=== PATIENT | male | born 1970 | race Two or more races ===

== ENCOUNTER 2016-12-22 10:45 | Inpatient (IN) | payer OTHER ==
[2016-12-22 11:35] VITALS: BMI 21.9
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
[2016-12-22] MEDS ORDERED: chlordiazePOXIDE HCL 25 MG CAPSULE PO PRN (14:18)
[2016-12-22] MEDS ORDERED: MAG HYDROX/AL HYDROX/SIMETH 30 ML UNIT-DOSE CUP PO PRN (14:18)
[2016-12-22] MEDS ORDERED: hydrOXYzine PAMOATE 25 MG CAPSULE (FP) PO PRN (14:18)
[2016-12-22] MEDS ORDERED: ACETAMINOPHEN 325 MG TABLET (FP) PO PRN (14:18)
[2016-12-22] MEDS ORDERED: NICOTINE POLACRILEX 4 MG GUM BUC PRN (14:18)
[2016-12-22] MEDS ORDERED: guaiFENesin/D-METHORPHAN HB 10 ML UNIT-DOSE CUPS PO PRN (14:18)
[2016-12-22] MEDS ORDERED: P-EPHED 60MG/TRIPROLIDI 2.5MG TABLET PO PRN (14:18)
[2016-12-22] MEDS ORDERED: IBUPROFEN 400 MG TABLET (FP) PO PRN (14:18)
[2016-12-22] MEDS ORDERED: MENTHOL/PHENOL 1 EACH UD MM PRN (14:18)
[2016-12-22] MEDS ORDERED: MAGNESIUM CITRATE 300 ML BOTTLE PO PRN (14:18)
[2016-12-22] MEDS ORDERED: LOPERAMIDE HCL 2 MG CAPSULE PO PRN (14:18)
[2016-12-22] MEDS ORDERED: MAGNESIUM HYDROX 2400MG/30ML ORAL SUSPENSION 30 ML CUP PO PRN (14:18)
[2016-12-22] MEDS ORDERED: METHADONE HCL 10 MG TABLET (FOR DETOX USE ONLY) PO ONE ×2 (14:24→23:00)
[2016-12-22] MEDS: CYPROHEPTADINE HCL 4 MG TABLET PO SCH (17:08)
[2016-12-22] MEDS: chlordiazePOXIDE HCL 25 MG CAPSULE PO SCH ×2 (17:08→22:23)
[2016-12-22] MEDS: diphenhydrAMINE HCL 50 MG CAPSULE PO PRN (22:23)
[2016-12-22] MEDS: THIAMINE HCL 100 MG TABLET (FP) PO SCH (22:23)
[2016-12-22] MEDS: SULFAMETHOXAZOLE/TRIMETHOPRIM 800MG/160MG D.S. TABLET PO SCH (22:23)
[2016-12-22] MEDS: BACITRACIN 0.9 GM PACKET TP SCH (22:23)
[2016-12-22 23:19] LABS: URINE APPEARANCE CLEAR; URINE BILIRUBIN NEGATIVE (NEGATIVE); URINE BLOOD NEGATIVE (NEGATIVE); URINE COLOR YELLOW; URINE GLUCOSE (UA) NEGATIVE (NEGATIVE); URINE KETONE NEGATIVE (NEGATIVE); URINE LEUK ESTERASE NEGATIVE (NEGATIVE); URINE NITRITE NEGATIVE (NEGATIVE); URINE PROTEIN NEGATIVE (NEGATIVE); URINE UROBILINOGEN NEGATIVE E.U./dl (0.2-1.0)
[2016-12-23] MEDS: chlordiazePOXIDE HCL 25 MG CAPSULE PO SCH ×4 (05:22→22:18)
[2016-12-23] MEDS ORDERED: ALBUTEROL SO4 6.7 GM HFA INHALER IH PRN (08:51)
[2016-12-23] MEDS ORDERED: METHADONE HCL 10 MG TABLET (FOR DETOX USE ONLY) PO SCH (10:00)
[2016-12-23 10:04] LABS: MCHC 32.7 g/dl (32.0-35.9); MEAN CELL VOLUME 82.5 fl (80-96); MEAN PLT VOLUME 8.8 fl (7.5-11.1); PLATELET COUNT 231 K/MM3 (134-434); RDW 14.9 % (11.9-15.9); WHITE BLOOD COUNT 5.6 K/mm3 (4.0-10.0)
[2016-12-23 10:17] LABS: ANION GAP 9 (8-16); BILIRUBIN,TOTAL 0.5 mg/dL (0.2-1.0); CALCIUM 9.1 mg/dL (8.5-10.1); CO2 25 mmol/L (21-32); CREATININE 0.9 mg/dL (0.7-1.3); GLUCOSE,RANDOM 112 mg/dL (74-106); SGOT/AST 23 U/L (15-37); SGPT/ALT 27 U/L (12-78); TOT PROT 7.4 g/dl (6.4-8.2)
[2016-12-23 10:18] LABS: ALK PHOS 113 U/L (45-117)
[2016-12-23] MEDS: BACITRACIN 0.9 GM PACKET TP SCH ×2 (10:26→22:18)
[2016-12-23] MEDS: SULFAMETHOXAZOLE/TRIMETHOPRIM 800MG/160MG D.S. TABLET PO SCH ×2 (10:26→22:18)
[2016-12-23] MEDS: EMTRICITAB/RILPIVIRINE/TENOFOV 1 EACH TABLET PO SCH (10:26)
[2016-12-23] MEDS: PRENATAL VITAMINS W/ FOLIC ACID TABLET (FP) PO SCH (10:27)
[2016-12-23] MEDS: NICOTINE 21 MG/24 HOURS TOPICAL PATCH TD SCH (10:27)
[2016-12-23] MEDS: ENALAPRIL MALEATE 10 MG TABLET (FP) PO SCH (10:28)
[2016-12-23] MEDS: CYPROHEPTADINE HCL 4 MG TABLET PO SCH ×2 (10:53→17:18)
--- NOTE | 2016-12-23 11:06 | PN ---
[facility] CIWA - CIWA Score Nausea/Vomitin-No Nausea/No Vomiting Muscle Tremors: 4-Moderate,w/Arms Extend Anxiety: 4-Mod. Anxious/Guarded Agitation: 4-Moderately Restless Paroxysmal Sweats: 1-Minimal Palms Moist Orientation: 0-Oriented Tacttile Disturbances: 3-Moderate Itch/Numb/Burn Auditory Disturbances: 0-None Visual Disturbances: 0-None Headache: 0-None Present CIWA-Ar Total Score: 16 S COWS - Scale Resting Pulse: 0= [place] 80 or Below Sweatin= Chills/Flushing Restless Observation: 3= Extraneous Movement Pupil Size: 0= Normal to Room Light Bone or Joint Aches: 4=Acute Joint/Muscle Pain Runny Nose/ Eye Tearin= Nasal Congestion GI Upset > 30mins: 1= Stomach Cramp Tremor Observation of Outstretched Hands: 1= Tremor [place], Not Seen Yawning Observation: 1= 1-2x During Session Anxiety or Irritability: 2=Irritable/Anxious Goose Flesh Skin: 0=Smooth Skin COWS Score: 14 [facility] Progress Note (SOAP) Subjective: ANXIETY,SWEATS,IRRITABILITY,INTERMITTENT SLEEP. Objective: 12/23/16 11:05 Vital Signs Temperature 97.7 F 12/23/16 10:22 Pulse Rate 77 12/23/16 10:22 Respiratory Rate 18 12/23/16 10:22 Blood Pressure 111/73 12/23/16 10:22 O2 Sat by Pulse Oximetry (%) Laboratory Last Values WBC 5.6 K/mm3 (4.0-10.0) 12/23/16 06:00 RBC 4.30 M/mm3 (4.00-5.60) 12/23/16 06:00 Hgb 11.6 GM/dL (11.7-16.9) L 12/23/16 06:00 Hct 35.4 % (35.4-49) 12/23/16 06:00 MCV 82.5 fl (80-96) 12/23/16 06:00 MCHC 32.7 g/dl (32.0-35.9) 12/23/16 06:00 RDW 14.9 % (11.9-15.9) 12/23/16 06:00 Plt Count 231 K/MM3 (134-434) D 12/23/16 06:00 MPV 8.8 fl (7.5-11.1) 12/23/16 06:00 Sodium 140 mmol/L (136-145) 12/23/16 06:00 Potassium 4.2 mmol/L (3.5-5.1) 12/23/16 06:00 Chloride 106 mmol/L (98-107) 12/23/16 06:00 Carbon Dioxide 25 mmol/L (21-32) D 12/23/16 06:00 Anion Gap 9 (8-16) 12/23/16 06:00 BUN 9 mg/dL (7-18) D 12/23/16 06:00 Creatinine 0.9 mg/dL (0.7-1.3) 12/23/16 06:00 Creat Clearance w eGFR > 60 (>60) 12/23/16 06:00 Random Glucose 112 mg/dL (74-106) H D 12/23/16 06:00 Calcium 9.1 mg/dL (8.5-10.1) 12/23/16 06:00 Total Bilirubin 0.5 mg/dL (0.2-1.0) D 12/23/16 06:00 AST 23 U/L (15-37) D 12/23/16 06:00 ALT 27 U/L (12-78) 12/23/16 06:00 Alkaline Phosphatase 113 U/L (45-117) 12/23/16 06:00 Total Protein 7.4 g/dl (6.4-8.2) 12/23/16 06:00 Albumin 4.0 g/dl (3.4-5.0) 12/23/16 06:00 Urine Color Yellow 12/22/16 21:51 Urine Appearance Clear 12/22/16 21:51 Urine pH 5.0 (5.0-8.0) 12/22/16 21:51 Urine Protein Negative (NEGATIVE) 12/22/16 21:51 Urine Glucose (UA) Negative (NEGATIVE) 12/22/16 21:51 Urine Ketones Negative (NEGATIVE) 12/22/16 21:51 Urine Blood Negative (NEGATIVE) 12/22/16 21:51 Urine Nitrite Negative (NEGATIVE) 12/22/16 21:51 Urine Bilirubin Negative (NEGATIVE) 12/22/16 21:51 Urine Urobilinogen Negative E.U./dl (0.2-1.0) 12/22/16 21:51 Ur Leukocyte Esterase Negative (NEGATIVE) 12/22/16 21:51 Assessment: 12/23/16 11:06 WITHDRAWAL SX Plan: CONTINUE DETOX
[2016-12-23] MEDS: THIAMINE HCL 100 MG TABLET (FP) PO SCH (22:18)
[2016-12-24] MEDS: chlordiazePOXIDE HCL 25 MG CAPSULE PO SCH ×2 (05:47→10:58)
[2016-12-24] MEDS: EMTRICITAB/RILPIVIRINE/TENOFOV 1 EACH TABLET PO SCH (07:25)
[2016-12-24] MEDS: CYPROHEPTADINE HCL 4 MG TABLET PO SCH ×2 (07:25→17:20)
[2016-12-24] MEDS: BACITRACIN 0.9 GM PACKET TP SCH ×2 (10:19→22:10)
[2016-12-24] MEDS: SULFAMETHOXAZOLE/TRIMETHOPRIM 800MG/160MG D.S. TABLET PO SCH ×2 (10:19→22:10)
[2016-12-24] MEDS: ENALAPRIL MALEATE 10 MG TABLET (FP) PO SCH (10:19)
[2016-12-24] MEDS: METHADONE HCL 5 MG TABLET (FOR DETOX USE ONLY) PO SCH (10:19)
[2016-12-24] MEDS: NICOTINE 21 MG/24 HOURS TOPICAL PATCH TD SCH (10:20)
[2016-12-24] MEDS: PRENATAL VITAMINS W/ FOLIC ACID TABLET (FP) PO SCH (10:20)
[2016-12-24] MEDS ORDERED: COLLOIDAL OATMEAL 1 BAR EACH TP PRN (13:34)
--- NOTE | 2016-12-24 13:37 | PN ---
[facility] CIWA - CIWA Score Nausea/Vomitin-No Nausea/No Vomiting Muscle Tremors: 4-Moderate,w/Arms Extend Anxiety: 3 Agitation: 2 Paroxysmal Sweats: 3 Orientation: 0-Oriented Tacttile Disturbances: 3-Moderate Itch/Numb/Burn Auditory Disturbances: 2-Mild Harshness/Frighten Visual Disturbances: 0-None Headache: 0-None Present CIWA-Ar Total Score: 17 S COWS - Scale Resting Pulse: 1= [place] 81-100 Sweatin= Chills/Flushing Restless Observation: 1= Difficult to Sit Still Pupil Size: 0= Normal to Room Light Bone or Joint Aches: 2= Severe Diffuse Aches Runny Nose/ Eye Tearin= Nasal Congestion GI Upset > 30mins: 1= Stomach Cramp Tremor Observation of Outstretched Hands: 2= Slight Tremor Visible Yawning Observation: 1= 1-2x During Session Anxiety or Irritability: 2=Irritable/Anxious Goose Flesh Skin: 3=Piloerection COWS Score: 15 [facility] Progress Note (SOAP) Subjective: Interrupted Sleep, Tremors, Body Aches, Sweating. Objective: PT. A & O X 3, OBSERVED AMBULATING ON UNIT. NO ACUTE DISTRESS. 12/24/16 13:35 Vital Signs Temperature 98.4 F 12/24/16 09:50 Pulse Rate 82 12/24/16 09:50 Respiratory Rate 20 12/24/16 09:50 Blood Pressure 119/80 12/24/16 09:50 O2 Sat by Pulse Oximetry (%) Laboratory Tests 12/22/16 12/23/16 12/23/16 21:51 06:00 06:00 WBC 5.6 RBC 4.30 Hgb 11.6 L Hct 35.4 MCV 82.5 MCHC 32.7 RDW 14.9 Plt Count 231 D MPV 8.8 Sodium 140 Potassium 4.2 Chloride 106 Carbon Dioxide 25 D Anion Gap 9 BUN 9 D Creatinine 0.9 Creat Clearance w eGFR > 60 Random Glucose 112 H D Calcium 9.1 Total Bilirubin 0.5 D AST 23 D ALT 27 Alkaline Phosphatase 113 Total Protein 7.4 Albumin 4.0 Urine Color Yellow Urine Appearance Clear Urine pH 5.0 Ur Specific [place] 1.025 Urine Protein Negative Urine Glucose (UA) Negative Urine Ketones Negative Urine Blood Negative Urine Nitrite Negative Urine Bilirubin Negative Urine Urobilinogen Negative Ur Leukocyte Esterase Negative RPR Titer 12/23/16 06:00 WBC RBC Hgb Hct MCV MCHC RDW Plt Count MPV Sodium Potassium Chloride Carbon Dioxide Anion Gap BUN Creatinine Creat Clearance w eGFR Random Glucose Calcium Total Bilirubin AST ALT Alkaline Phosphatase Total Protein Albumin Urine Color Urine Appearance Urine pH Ur Specific [place] Urine Protein Urine Glucose (UA) Urine Ketones Urine Blood Urine Nitrite Urine Bilirubin Urine Urobilinogen Ur Leukocyte Esterase RPR Titer Nonreactive LABS NOTED. Assessment: 12/24/16 13:36 WITHDRAWAL SYMPTOMS. Plan: CONTINUE DETOX.
[2016-12-24] MEDS: chlordiazePOXIDE 5 MG CAPSULE PO SCH ×2 (17:22→22:10)
[2016-12-24] MEDS: THIAMINE HCL 100 MG TABLET (FP) PO SCH (22:10)
[2016-12-24] MEDS: diphenhydrAMINE HCL 50 MG CAPSULE PO PRN (22:10)
[2016-12-25] MEDS: chlordiazePOXIDE 5 MG CAPSULE PO SCH ×2 (05:29→10:32)
[2016-12-25] MEDS: CYPROHEPTADINE HCL 4 MG TABLET PO SCH ×2 (07:07→17:03)
[2016-12-25] MEDS: EMTRICITAB/RILPIVIRINE/TENOFOV 1 EACH TABLET PO SCH (07:47)
[2016-12-25] MEDS: PRENATAL VITAMINS W/ FOLIC ACID TABLET (FP) PO SCH (10:08)
[2016-12-25] MEDS: METHADONE HCL 5 MG TABLET (FOR DETOX USE ONLY) PO SCH (10:08)
[2016-12-25] MEDS: ENALAPRIL MALEATE 10 MG TABLET (FP) PO SCH (10:08)
[2016-12-25] MEDS: SULFAMETHOXAZOLE/TRIMETHOPRIM 800MG/160MG D.S. TABLET PO SCH ×2 (10:08→22:04)
[2016-12-25] MEDS: NICOTINE 21 MG/24 HOURS TOPICAL PATCH TD SCH (10:09)
[2016-12-25] MEDS: BACITRACIN 0.9 GM PACKET TP SCH ×2 (10:09→22:04)
--- NOTE | 2016-12-25 12:58 | PN ---
[facility] Progress Note (SOAP) Subjective: Sweating, anxious, restless, nausea Objective: 12/25/16 12:56 Last Vital Signs Temp Pulse Resp BP Pulse Ox 96.6 F L 90 18 122/75 12/25/16 11:10 12/25/16 11:10 12/25/16 11:10 12/25/16 11:10 Laboratory Tests 12/22/16 12/23/16 12/23/16 21:51 06:00 06:00 WBC 5.6 RBC 4.30 Hgb 11.6 L Hct 35.4 MCV 82.5 MCHC 32.7 RDW 14.9 Plt Count 231 D MPV 8.8 Sodium 140 Potassium 4.2 Chloride 106 Carbon Dioxide 25 D Anion Gap 9 BUN 9 D Creatinine 0.9 Creat Clearance w eGFR > 60 Random Glucose 112 H D Calcium 9.1 Total Bilirubin 0.5 D AST 23 D ALT 27 Alkaline Phosphatase 113 Total Protein 7.4 Albumin 4.0 Urine Color Yellow Urine Appearance Clear Urine pH 5.0 Ur Specific [place] 1.025 Urine Protein Negative Urine Glucose (UA) Negative Urine Ketones Negative Urine Blood Negative Urine Nitrite Negative Urine Bilirubin Negative Urine Urobilinogen Negative Ur Leukocyte Esterase Negative RPR Titer 12/23/16 06:00 WBC RBC Hgb Hct MCV MCHC RDW Plt Count MPV Sodium Potassium Chloride Carbon Dioxide Anion Gap BUN Creatinine Creat Clearance w eGFR Random Glucose Calcium Total Bilirubin AST ALT Alkaline Phosphatase Total Protein Albumin Urine Color Urine Appearance Urine pH Ur Specific [place] Urine Protein Urine Glucose (UA) Urine Ketones Urine Blood Urine Nitrite Urine Bilirubin Urine Urobilinogen Ur Leukocyte Esterase RPR Titer Nonreactive Labs noted Assessment: 12/25/16 12:57 Withdrawal symptoms Plan: Continue detox
[2016-12-25] MEDS: chlordiazePOXIDE HCL 10 MG CAPSULE PO SCH ×2 (17:03→22:04)
--- NOTE | 2016-12-25 17:50 | PN ---
[facility] Progress Note Note: Vital Signs Temperature 97.4 F L 12/25/16 16:47 Pulse Rate 82 12/25/16 16:47 Respiratory Rate 19 12/25/16 16:47 Blood Pressure 114/70 12/25/16 16:47 O2 Sat by Pulse Oximetry (%) CALLED BY NURSE TO EVALUATED PATIENT WITH ABSCESS OF RIGHT LEG RIGHT LEG SWELLING WITH ERYTHEMA SIZE 2X2 CMS NO FLUCTUATION AMBULATION NO PROBLEM Laboratory Last Values WBC 5.6 K/mm3 (4.0-10.0) 12/23/16 06:00 RBC 4.30 M/mm3 (4.00-5.60) 12/23/16 06:00 Hgb 11.6 GM/dL (11.7-16.9) L 12/23/16 06:00 Hct 35.4 % (35.4-49) 12/23/16 06:00 MCV 82.5 fl (80-96) 12/23/16 06:00 MCHC 32.7 g/dl (32.0-35.9) 12/23/16 06:00 RDW 14.9 % (11.9-15.9) 12/23/16 06:00 Plt Count 231 K/MM3 (134-434) D 12/23/16 06:00 MPV 8.8 fl (7.5-11.1) 12/23/16 06:00 Sodium 140 mmol/L (136-145) 12/23/16 06:00 Potassium 4.2 mmol/L (3.5-5.1) 12/23/16 06:00 Chloride 106 mmol/L (98-107) 12/23/16 06:00 Carbon Dioxide 25 mmol/L (21-32) D 12/23/16 06:00 Anion Gap 9 (8-16) 12/23/16 06:00 BUN 9 mg/dL (7-18) D 12/23/16 06:00 Creatinine 0.9 mg/dL (0.7-1.3) 12/23/16 06:00 Creat Clearance w eGFR > 60 (>60) 12/23/16 06:00 Random Glucose 112 mg/dL (74-106) H D 12/23/16 06:00 Calcium 9.1 mg/dL (8.5-10.1) 12/23/16 06:00 Total Bilirubin 0.5 mg/dL (0.2-1.0) D 12/23/16 06:00 AST 23 U/L (15-37) D 12/23/16 06:00 ALT 27 U/L (12-78) 12/23/16 06:00 Alkaline Phosphatase 113 U/L (45-117) 12/23/16 06:00 Total Protein 7.4 g/dl (6.4-8.2) 12/23/16 06:00 Albumin 4.0 g/dl (3.4-5.0) 12/23/16 06:00 Urine Color Yellow 12/22/16 21:51 Urine Appearance Clear 12/22/16 21:51 Urine pH 5.0 (5.0-8.0) 12/22/16 21:51 Ur Specific [place] 1.025 (1.005-1.025) 12/22/16 21:51 Urine Protein Negative (NEGATIVE) 12/22/16 21:51 Urine Glucose (UA) Negative (NEGATIVE) 12/22/16 21:51 Urine Ketones Negative (NEGATIVE) 12/22/16 21:51 Urine Blood Negative (NEGATIVE) 12/22/16 21:51 Urine Nitrite Negative (NEGATIVE) 12/22/16 21:51 Urine Bilirubin Negative (NEGATIVE) 12/22/16 21:51 Urine Urobilinogen Negative E.U./dl (0.2-1.0) 12/22/16 21:51 Ur Leukocyte Esterase Negative (NEGATIVE) 12/22/16 21:51 RPR Titer Nonreactive (NONREACTIVE) 12/23/16 06:00 PATIENT HAS BEEN ON BACTRIM DS 1 TAB PO BID SINCE ADMISSION TREATMENT CONTINUE BACTRIMDS 1 TAB PO BID HOT PACK TID EACH 15 MINS MOTRIN 600 MGS PO Q 6 HRS PRN FOR PAIN IF NO IMPROVEMENT MAY REQUIRE INCISION AND DRAINAGE
[2016-12-25] MEDS ORDERED: IBUPROFEN 600 MG TABLET (FP) PO PRN (17:53)
[2016-12-25] MEDS: THIAMINE HCL 100 MG TABLET (FP) PO SCH (22:04)
[2016-12-25] MEDS: diphenhydrAMINE HCL 50 MG CAPSULE PO PRN (22:05)
--- NOTE | 2016-12-25 22:23 | EKG ---
Test Reason : Blood Pressure : / mmHG Vent. Rate : 080 BPM Atrial Rate : 080 BPM P-R Int : 152 ms QRS Dur : 090 ms QT Int : 372 ms P-R-T Axes : 056 074 055 degrees QTc Int : 429 ms NORMAL SINUS RHYTHM NONSPECIFIC ST ABNORMALITY NO PREVIOUS ECGS AVAILABLE Confirmed by CHRISTIANO BALDERAS, PARAMJIT (2016) on 12/25/2016 10:23:17 PM Referred By: Confirmed By:PARAMJIT ALVARADO MD
[2016-12-26] MEDS: chlordiazePOXIDE HCL 10 MG CAPSULE PO SCH (06:00)
[2016-12-26] MEDS: CYPROHEPTADINE HCL 4 MG TABLET PO SCH (06:01)
[2016-12-26] MEDS: EMTRICITAB/RILPIVIRINE/TENOFOV 1 EACH TABLET PO SCH (08:01)
[2016-12-26 08:53] VITALS: BP 130/87; PULSE 92; TEMP 97.3
[2016-12-26] MEDS ORDERED: METHADONE HCL 5 MG TABLET (FOR DETOX USE ONLY) PO SCH (09:00)
[2016-12-26] MEDS: SULFAMETHOXAZOLE/TRIMETHOPRIM 800MG/160MG D.S. TABLET PO SCH (09:01)
[2016-12-26] MEDS: PRENATAL VITAMINS W/ FOLIC ACID TABLET (FP) PO SCH (09:01)
[2016-12-26] MEDS: NICOTINE 21 MG/24 HOURS TOPICAL PATCH TD SCH (09:02)
[2016-12-26] MEDS: BACITRACIN 0.9 GM PACKET TP SCH (09:02)
[2016-12-26] MEDS ORDERED: METHADONE HCL 10 MG TABLET (FOR DETOX USE ONLY) PO SCH (10:00)
--- NOTE | 2016-12-26 12:56 | DS ---
[facility] Detox Discharge Summary Admission Date: 12/22/16 Discharge Date: 12/26/16 - History Present History: Alcohol Dependence, Cannabis Dependence, Cocaine Dependence, Opioid Dependence Additional Comments: ADVISED PATIENT TO COMPLETE REMAINDER OF FULL COURSE OF ANTIBIOTIC PRESCRIBED WHILE ADMITTED FOR DETOX FOR ABSCESS OF RIGHT ARM AND RIGHT LEG. ALSO ADVISED PATIENT TO FOLLOW-UP WITH DIRECTOR OF COMMUNITY SERVICES / MEDICAL PROVIDER AT [facility] PER ARRANGEMENT. Pertinent Past History: Asthma, HTN, Hep C (Treated), HIV, Depression Abscess of Right Arm. - Physical Exam Results Vital Signs: Vital Signs Temperature 97.3 F L 12/26/16 08:52 Pulse Rate 92 H 12/26/16 08:52 Respiratory Rate 18 12/26/16 08:52 Blood Pressure 130/87 12/26/16 08:52 O2 Sat by Pulse Oximetry (%) Pertinent Admission Physical Exam Findings: WITHDRAWAL SYMPTOMS. Laboratory Tests 12/22/16 12/23/16 12/23/16 21:51 06:00 06:00 WBC 5.6 RBC 4.30 Hgb 11.6 L Hct 35.4 MCV 82.5 MCHC 32.7 RDW 14.9 Plt Count 231 D MPV 8.8 Sodium 140 Potassium 4.2 Chloride 106 Carbon Dioxide 25 D Anion Gap 9 BUN 9 D Creatinine 0.9 Creat Clearance w eGFR > 60 Random Glucose 112 H D Calcium 9.1 Total Bilirubin 0.5 D AST 23 D ALT 27 Alkaline Phosphatase 113 Total Protein 7.4 Albumin 4.0 Urine Color Yellow Urine Appearance Clear Urine pH 5.0 Ur Specific [place] 1.025 Urine Protein Negative Urine Glucose (UA) Negative Urine Ketones Negative Urine Blood Negative Urine Nitrite Negative Urine Bilirubin Negative Urine Urobilinogen Negative Ur Leukocyte Esterase Negative RPR Titer 12/23/16 06:00 WBC RBC Hgb Hct MCV MCHC RDW Plt Count MPV Sodium Potassium Chloride Carbon Dioxide Anion Gap BUN Creatinine Creat Clearance w eGFR Random Glucose Calcium Total Bilirubin AST ALT Alkaline Phosphatase Total Protein Albumin Urine Color Urine Appearance Urine pH Ur Specific [place] Urine Protein Urine Glucose (UA) Urine Ketones Urine Blood Urine Nitrite Urine Bilirubin Urine Urobilinogen Ur Leukocyte Esterase RPR Titer Nonreactive LABS NOTED. - Treatment Hospital Course: Detox Protocol Followed, Detoxed Safely, Responded well, Discharged Condition Good Patient has Accepted a Rehab Referral to: PATIENT GOING HOME. WILL RETURN TO [facility] FOR FOLLOW-UP - Medication Discharge Medications: Ambulatory Orders Emtricita/Rilpivirine/Tenof Df [Complera Tablet] 1 each PO DAILY 05/04/15 Albuterol Sulfate Inhaler - [Ventolin HFA Inhaler -] 2 inh IH Q4H PRN 04/12/16 Trazodone HCl [Desyrel -] 100 mg PO HS #30 tablet 04/26/16 Enalapril Maleate [Vasotec] 20 mg PO DAILY 12/22/16 Bacitracin - [Bacitracin Topical Ointment -] 1 applic TP BID #1 applic 12/26/16 Sulfamethoxazole/Trimethoprim [Bactrim Ds -] 1 tab PO BID #20 tablet 12/26/16 - Diagnosis (1) Abscess Status: Acute (2) Alcohol dependence with uncomplicated withdrawal Status: Acute (3) Cannabis dependence, uncomplicated Status: Acute (4) Cocaine dependence, uncomplicated Status: Acute (5) Hepatitis C Status: Chronic Qualifiers: Viral hepatitis chronicity: chronic Hepatic coma status: without hepatic coma Qualified Code(s): B18.2 - Chronic viral hepatitis C (6) Nicotine dependence Status: Chronic Qualifiers: Nicotine product type: cigarettes Substance use status: uncomplicated Qualified Code(s): F17.210 - Nicotine dependence, cigarettes, uncomplicated (7) Opioid dependence with withdrawal Status: Acute - AMA Did Patient Leave Against Medical Advice: No
[2016-12-27] MEDS ORDERED: METHADONE HCL 5 MG TABLET (FOR DETOX USE ONLY) PO SCH (06:00)
== END 2016-12-26 09:44 | disposition home or self-care (01) | DRG 773 ==
LOC: YASAS 10:45 → Y3N 12:30
PROVIDERS: ADMIT Internal Medicine; ATTEND Internal Medicine
PROC: HZ2ZZZZ Detoxification Services for Substance Abuse Treatment (ICD-10-PCS; principal; 2016-12-22)
DX: F11.23 Opioid dependence with withdrawal (principal); F10.230 Alcohol dependence with withdrawal, uncomplicated; F14.20 Cocaine dependence, uncomplicated; F12.20 Cannabis dependence, uncomplicated; F17.210 Nicotine dependence, cigarettes, uncomplicated; B18.2 Chronic viral hepatitis C; J45.909 Unspecified asthma, uncomplicated; I10 Essential (primary) hypertension; Z21 Asymptomatic human immunodeficiency virus [HIV] infection status; L02.415 Cutaneous abscess of right lower limb
CPT/HCPCS: 36415; 80053; 81003; 85027; 86593; 93005; 93010

== ENCOUNTER 2017-08-05 11:36 | Inpatient (IN) | payer OTHER ==
[2017-08-05 12:39] VITALS: BMI 23.1
--- NOTE | 2017-08-05 14:39 | HP ---
CIWA Score - CIWA Score Nausea/Vomitin Muscle Tremors: 3 Anxiety: 3 Agitation: 3 Paroxysmal Sweats: 2 Orientation: 0-Oriented Tacttile Disturbances: 2-Mild Itch/Numbness/Burn Auditory Disturbances: 2-Mild Harshness/Frighten Visual Disturbances: 2-Mild Sensitivity Headache: 2-Mild CIWA-Ar Total Score: 22 Admission ROS BHS - HPI Chief Complaint: I NEED HELP TO STOP DRINKING ALCOHOL,COCAINE,MARIJUANA,HEROIN ,ON SUXONE MIANTENENCE 8MG/2MG TID,DID NOT TAKE SUBOXONE FOR 3 DAYS, LAST DETOX [facility] 12/22/16 TO 12/26/16 WEIGHT LOSS HIV SINCE 2009 ON MED HTN HEPATITIS C TREATED NICOTINE DEPENDENCE ANXIETY,DEPRESSION,INSOMNIA LONGEST PERIOD OF SOBRIETY 4 MONTHS Allergies/Adverse Reactions: Allergies Allergy/AdvReac Type Severity Reaction Status Date / Time No Known Allergies Allergy Verified 12/22/16 11:23 History of Present Illness: THIS 47 YEARS OLD MALE WITH ALCOHOL,COCAINE,MARIJUANA,HROIN DEPENDENCE,ON SUBOXONE MENTIONED,RUN OUT OF SUBOXONE 3 DYAS AGO,HAS MEDICATION IN THE PHARMACY - Ebola screening Have you traveled outside of the country in the last 21 days: No (N) Have you had contact with anyone from an Ebola affected area: No Have you been sick,other than usual withdrawal symptoms: No Do you have a fever: No - Review of Systems Constitutional: Loss of Appetite, Malaise, Night Sweats, Changes in sleep, Weakness, Unintentional Wgt. Loss EENT: reports: Tearing, Nose Congestion Respiratory: reports: No Symptoms reported, Other (ASTHMA) Cardiac: reports: Palpitations GI: reports: Diarrhea, Nausea, Poor Fluid Intake, Vomiting : reports: No Symptoms Reported Musculoskeletal: reports: Back Pain, Muscle Pain Neuro: reports: Headache, Tremors Endocrine: reports: No Symptoms Reported Hematology: reports: No Symptoms Reported, Other (HIV) Psychiatric: reports: Anxious, Depressed (INSOMNIA) Patient History - Patient Medical History Hx Anemia: Yes (ALBUTROL INHALER) Hx Asthma: Yes Hx Chronic Obstructive Pulmonary Disease (COPD): No Hx Cancer: No Hx Cardiac Disorders: No Hx Congestive Heart Failure: No Hx Hypertension: Yes (ON MED) Hx Hypercholesterolemia: No Hx Pacemaker: No HX Cerebrovascular Accident: No Hx Seizures: No Hx Dementia: No Hx Diabetes: No Hx Gastrointestinal Disorders: No Hx Liver Disease: No Hx Genitourinary Disorders: No Hx Sexually Transmitted Disorders: No Hx Renal Disease (ESRD): No Hx Thyroid Disease: No Hx Human Immunodeficiency Virus (HIV): Yes (2012-COMPLERA, tx at [facility] SINCE 2009) Hx Hepatitis C: Yes (TX'ED) Hx Depression: Yes Hx Suicide Attempt: No Hx Bipolar Disorder: No Hx Schizophrenia: No Other Medical History: ANXIETY,INSOMNIA,NO SUICIDAL,NO HOMICIDAL - Patient Surgical History Past Surgical History: No Hx Neurologic Surgery: No Hx Cataract Extraction: No Hx Cardiac Surgery: No Hx Lung Surgery: No Hx Breast Surgery: No Hx Breast Biopsy: No Hx Abdominal Surgery: No Hx Appendectomy: No Hx Cholecystectomy: No Hx Genitourinary Surgery: No Hx Section: No Hx Orthopedic Surgery: No Anesthesia Reaction: No - PPD History Previous Implant?: Yes Documented Results: Negative w/o proof Date: 04/14/16 Results: 0 mm PPD to be Administered?: Yes - Smoking Cessation Smoking history: Current every day smoker Have you smoked in the past 12 months: Yes Aproximately how many cigarettes per day: 20 Cigars Per Day: 0 Hx Chewing Tobacco Use: No Initiated information on smoking cessation: Yes 'Breaking Loose' booklet given: 08/05/17 - Substance & Tx. History Hx Alcohol Use: Yes Hx Substance Use: Yes Substance Use Type: Alcohol, Cocaine Hx Substance Use Treatment: Yes ([facility] 12/22/16 TO 12/16/16) - Substances Abused Alcohol Route: Oral Frequency: Daily Amount used: 1PINT OF VODKA/12 OF 8 OZS OF BEER Age of first use: 18 Date of Last Use: 08/05/17 Cocaine Route: Injection Frequency: Daily Amount used: 40$ Age of first use: 23 Date of Last Use: 08/05/17 Marijuana/Hashish Route: Smoking Frequency: Daily Amount used: 10$ Age of first use: 15 Date of Last Use: 08/04/17 Heroin Route: Injection Frequency: Daily Amount used: 4 BAGS Age of first use: 27 Date of Last Use: 08/04/17 Family Disease History - Family Disease History Family Disease History: Other: Father (DEPENDENT ON ETOH AND DRUGS AND ), Mother (ALZHIEMERS) Admission Physical Exam BHS - Vital Signs Vital Signs: Vital Signs - 24 hr 08/05/17 12:33 Temperature 97.7 F Pulse Rate 86 Respiratory 18 Rate Blood Pressure 125/73 - Physical General Appearance: Yes: Moderate Distress, Tremorous, Irritable, Sweating, Anxious HEENTM: Yes: Normal ENT Inspection, OSITO, Pharynx Normal Respiratory: Yes: Lungs Clear, Normal Breath Sounds, No Respiratory Distress, Other (ASTHMA) Neck: Yes: Within Normal Limits Breast: Yes: Within Normal Limits Cardiology: Yes: Within Normal Limits, Regular Rhythm, Regular Rate, S1, S2 Abdominal: Yes: Within Normal Limits, Normal Bowel Sounds, Non Tender, Flat, Soft Genitourinary: Yes: Within Normal Limits Back: Yes: Within Normal Limits Musculoskeletal: Yes: full range of Motion, Back pain, Muscle Pain Extremities: Yes: Tremors Neurological: Yes: bank compliance officer II-XII NML intact, Fully Oriented, Alert, Motor Strength 5/5 Integumentary: Yes: Dry, Track Proctor (CELLULITIS HANDS) Lymphatic: Yes: Within Normal Limits - Diagnostic (1) HIV (human immunodeficiency virus infection) Current Visit: Yes Status: Acute (2) Alcohol dependence with uncomplicated withdrawal Current Visit: No Status: Acute (3) Cannabis dependence, uncomplicated Current Visit: No Status: Acute (4) Cocaine dependence, uncomplicated Current Visit: No Status: Acute (5) Hepatitis C Current Visit: No Status: Chronic Qualifiers: Viral hepatitis chronicity: chronic Hepatic coma status: without hepatic coma Qualified Code(s): B18.2 - Chronic viral hepatitis C (6) Anxiety and depression Current Visit: No Status: Chronic (7) Nicotine dependence Current Visit: No Status: Chronic Qualifiers: Nicotine product type: cigarettes Substance use status: uncomplicated Qualified Code(s): F17.210 - Nicotine dependence, cigarettes, uncomplicated (8) Weight loss Current Visit: Yes Status: Acute (9) Asthma Current Visit: Yes Status: Acute (10) Cellulitis and abscess of hand Current Visit: Yes Status: Acute Cleared for Admission S - Detox or Rehab [facility] Level of Care: Medically Managed Detox Regimen/Protocol: Librium [facility] Breath Alcohol Content Breath Alcohol Content: 0.024 Urine Drug Screen - Results Drug Screen Negative: No Urine Drug Screen Results: THC-Marijuana, ARNAUD-Cocaine, OPI-Opiates, OXY- Oxycodone
[2017-08-05] MEDS ORDERED: chlordiazePOXIDE HCL 25 MG CAPSULE PO ONE (15:01)
[2017-08-05] MEDS ORDERED: MENTHOL/PHENOL 1 EACH UD MM PRN (15:01)
[2017-08-05] MEDS ORDERED: hydrOXYzine PAMOATE 50 MG CAPSULE (FP) PO PRN (15:01)
[2017-08-05] MEDS ORDERED: IBUPROFEN 400 MG TABLET (FP) PO PRN (15:01)
[2017-08-05] MEDS ORDERED: NICOTINE POLACRILEX 2 MG GUM BC PRN (15:01)
[2017-08-05] MEDS ORDERED: guaiFENesin/D-METHORPHAN HB 10 ML UNIT-DOSE CUPS PO PRN (15:01)
[2017-08-05] MEDS ORDERED: ACETAMINOPHEN 325 MG TABLET (FP) PO PRN (15:01)
[2017-08-05] MEDS ORDERED: MAGNESIUM CITRATE 300 ML BOTTLE PO PRN (15:01)
[2017-08-05] MEDS ORDERED: P-EPHED 60MG/TRIPROLIDI 2.5MG TABLET PO PRN (15:01)
[2017-08-05] MEDS ORDERED: MAGNESIUM HYDROX 2400MG/30ML ORAL SUSPENSION 30 ML CUP PO PRN (15:01)
[2017-08-05] MEDS ORDERED: MAG HYDROX/AL HYDROX/SIMETH 30 ML UNIT-DOSE CUP PO PRN (15:01)
[2017-08-05] MEDS ORDERED: LOPERAMIDE HCL 2 MG CAPSULE PO PRN (15:01)
[2017-08-05] MEDS ORDERED: chlordiazePOXIDE HCL 25 MG CAPSULE PO PRN (15:01)
[2017-08-05] MEDS ORDERED: ALBUTEROL SO4 18 GM HFA INHALER IH PRN (15:11)
[2017-08-05] MEDS: NICOTINE 21 MG/24 HOURS TOPICAL PATCH TD SCH (18:15)
[2017-08-05] MEDS: chlordiazePOXIDE HCL 25 MG CAPSULE PO SCH ×2 (18:19→22:03)
[2017-08-05 18:24] LABS: URINE APPEARANCE CLEAR; URINE BILIRUBIN NEGATIVE (NEGATIVE); URINE BLOOD NEGATIVE (NEGATIVE); URINE COLOR YELLOW; URINE GLUCOSE (UA) NEGATIVE (NEGATIVE); URINE KETONE NEGATIVE (NEGATIVE); URINE LEUK ESTERASE NEGATIVE (NEGATIVE); URINE NITRITE NEGATIVE (NEGATIVE); URINE PROTEIN NEGATIVE (NEGATIVE); URINE UROBILINOGEN NEGATIVE mg/dL (0.2-1.0)
[2017-08-05] MEDS: SULFAMETHOXAZOLE/TRIMETHOPRIM 800MG/160MG D.S. TABLET PO SCH (22:03)
[2017-08-05] MEDS: THIAMINE HCL 100 MG TABLET (FP) PO SCH (22:03)
[2017-08-05] MEDS: BACITRACIN 0.9 GM PACKET TP SCH (22:03)
[2017-08-05] MEDS: BUPRENORPHINE/NALOXONE 8 MG/2 MG FILM PACKET SL SCH (22:03)
[2017-08-06] MEDS: chlordiazePOXIDE HCL 25 MG CAPSULE PO SCH ×4 (05:30→22:16)
[2017-08-06] MEDS: BUPRENORPHINE/NALOXONE 8 MG/2 MG FILM PACKET SL SCH ×3 (05:30→22:16)
--- NOTE | 2017-08-06 07:41 | CONSULT ---
[facility] Psychiatric Consult - Data Date of interview: 08/06/17 Admission source: Self-referred Identifying data: Mr Fernandez is a 47 years old male, unemployed on public assistance, domiciled seeking detox treatment for alcohol, heroin, cocaine and marijuana Substance Abuse History: Reports history of alcohol, heroin, cocaine and marijuana use Medical History: Significant for anemia, bronchial asthma, hypertension, HIV infection since 2012 (on ART medications) and history of treatment for hepatitis C. Currently he attends [facility] and he is on suboxone 8 mg/2 mg sl film po daily. Smokes cigarettes 1ppd Psychiatric History: Patient was seen by screenplay writer on a previous admission to this facility. Historical narrative has remained consistent. He reports that his first psychiatric contact was in the late in [place]. He was feeling depressed, crying frequently, sad, no sleep or appetite, had no interest in previously enjoyed activities, felt hopeless/helpless/worthless, and had suicidal ideations due to his ongoing divorce and loss of custody of children. His psychiatrist diagnosed him with depression and anxiety, and gave him Zoloft and Buspar. Patient states he took Zoloft and Buspar until 2002. Patient moved to [facility] in 2009 where his psychiatric contact has been confined to admissions to inpatient substance abuse facilities for detox/rehab and usually for sleep medications. He was admitted to inpatient rehab in this facility in Apr 2016 and was prescribed Trazadone 100 mg po HS. Patient denies psychiatric inpatient hospitalization or suicide attempts. At present, reports feeling sad and sleeping poorly Physical/Sexual Abuse/Trauma History: Denies history of physical, sexual abuse as well as DV relationship Additional Comment: Reports history of multiple misdemeanor arrests. Denies being on probation at present Mental Status Exam - Mental Status Exam Alert and Oriented to: Time, Place, Person Cognitive Function: Fair Patient Appearance: Well Groomed Mood: Sad Affect: Appropriate Patient Behavior: Cooperative Speech Pattern: Clear Voice Loudness: Normal Thought Process: Intact, Goal Oriented Thought Disorder: Not Present Hallucinations: Denies Suicidal Ideation: Denies Homicidal Ideation: Denies Insight/Judgement: Poor Sleep: Poorly Appetite: Poor Muscle strength/Tone: Normal Gait/Station: Normal Psychiatric Findings - Problem List ([place] 1, 2,3) (1) Depressive disorder Current Visit: Yes Status: Chronic (2) MDD (major depressive disorder) Current Visit: No Status: Ruled-out (3) Substance-induced sleep disorder Current Visit: Yes Status: Acute (4) Alcohol dependence with uncomplicated withdrawal Current Visit: No Status: Acute (5) Cocaine dependence, uncomplicated Current Visit: No Status: Acute (6) Cannabis dependence, uncomplicated Current Visit: No Status: Acute (7) Opioid dependence on agonist therapy Current Visit: No Status: Chronic (8) Nicotine dependence Current Visit: No Status: Chronic Qualifiers: Nicotine product type: cigarettes Substance use status: uncomplicated Qualified Code(s): F17.210 - Nicotine dependence, cigarettes, uncomplicated (9) Asthma Current Visit: Yes Status: Acute (10) AIDS Current Visit: No Status: Chronic (11) Hepatitis C Current Visit: No Status: Chronic Qualifiers: Viral hepatitis chronicity: chronic Hepatic coma status: without hepatic coma Qualified Code(s): B18.2 - Chronic viral hepatitis C (12) Substance induced mood disorder Current Visit: Yes Status: Acute - Initial Treatment Plan Initial Treatment Plan: 1) Start Trazadone 100 mg po HS forn insomnia. 2) Continue inpatient detoxification
[2017-08-06] MEDS: ENALAPRIL MALEATE 10 MG TABLET (FP) PO SCH (10:07)
[2017-08-06] MEDS: BACITRACIN 0.9 GM PACKET TP SCH ×2 (10:07→22:16)
[2017-08-06] MEDS: SULFAMETHOXAZOLE/TRIMETHOPRIM 800MG/160MG D.S. TABLET PO SCH ×2 (10:07→22:16)
[2017-08-06] MEDS: PRENATAL VITAMINS W/ FOLIC ACID TABLET (FP) PO SCH (10:07)
[2017-08-06] MEDS: NICOTINE 21 MG/24 HOURS TOPICAL PATCH TD SCH (10:08)
[2017-08-06 10:10] LABS: HEMOGLOBIN 11.8 GM/dL (11.7-16.9); MCH 26.9 pg (25.7-33.7); MCHC 31.9 g/dl (32.0-35.9); MEAN CELL VOLUME 84.1 fl (80-96); MEAN PLT VOLUME 9.2 fl (7.5-11.1); PLATELET COUNT 214 K/MM3 (134-434); RDW 15.2 % (11.9-15.9); WHITE BLOOD COUNT 5.8 K/mm3 (4.0-10.0)
[2017-08-06 10:16] LABS: ALBUMIN 3.8 g/dl (3.4-5.0); ANION GAP 6 (8-16); BLOOD UREA NITROGEN 9 mg/dL (7-18); CALCIUM 8.5 mg/dL (8.5-10.1); CHLORIDE 106 mmol/L (98-107); CO2 26 mmol/L (21-32); CREATININE 0.6 mg/dL (0.7-1.3); GLUCOSE,RANDOM 99 mg/dL (74-106); SGPT/ALT 25 U/L (12-78); SODIUM 138 mmol/L (136-145)
[2017-08-06 10:18] LABS: ALK PHOS 91 U/L (45-117); BILIRUBIN,TOTAL 0.6 mg/dL (0.2-1.0); TOT PROT 7.1 g/dl (6.4-8.2)
[2017-08-06 10:41] LABS: POTASSIUM 4.3 mmol/L (3.5-5.1); SGOT/AST 24 U/L (15-37)
--- NOTE | 2017-08-06 13:13 | EKG ---
Test Reason : Blood Pressure : / mmHG Vent. Rate : 071 BPM Atrial Rate : 071 BPM P-R Int : 148 ms QRS Dur : 084 ms QT Int : 376 ms P-R-T Axes : 000 077 056 degrees QTc Int : 408 ms NORMAL SINUS RHYTHM VOLTAGE CRITERIA FOR LEFT VENTRICULAR HYPERTROPHY EARLY REPOLARIZATION ABNORMAL ECG WHEN COMPARED WITH ECG OF 22-DEC-2016 14:00, NO SIGNIFICANT CHANGE WAS FOUND BASELINE ARTIFACT Confirmed by FIONA BALDERAS, OLMAN ([id number]) on 08/06/2017 1:13:22 PM Referred By: Confirmed By:OLMAN JAIMES MD
[2017-08-06] MEDS: EMTRICITAB/RILPIVIRINE/TENOFOV 1 EACH TABLET PO SCH (14:00)
--- NOTE | 2017-08-06 14:52 | PN ---
S CIWA - CIWA Score Nausea/Vomitin-No Nausea/No Vomiting Muscle Tremors: 3 Anxiety: 2 Agitation: 2 Paroxysmal Sweats: 3 Orientation: 2-Disoriented Date<2 days Tacttile Disturbances: 2-Mild Itch/Numbness/Burn Auditory Disturbances: 0-None Visual Disturbances: 2-Mild Sensitivity Headache: 0-None Present CIWA-Ar Total Score: 16 BHS Progress Note (SOAP) Subjective: Stomach Cramping, Tremors, Interrupted Sleep, Body Aches, Fatigue, Sweating. Objective: PT A & O X 2 (UNCERTAIN ABOUT CURRENT DAY / DATE). PT. OBSERVED AMBULATING ON UNIT. NO ACUTE DISTRESS. 08/06/17 14:48 Vital Signs Temperature 96.6 F L 08/06/17 13:58 Pulse Rate 90 08/06/17 13:58 Respiratory Rate 18 08/06/17 13:58 Blood Pressure 124/81 08/06/17 13:58 O2 Sat by Pulse Oximetry (%) Laboratory Tests 08/05/17 08/06/17 08/06/17 17:30 07:40 07:40 WBC 5.8 RBC 4.40 Hgb 11.8 Hct 37.0 MCV 84.1 MCH 26.9 MCHC 31.9 L RDW 15.2 Plt Count 214 MPV 9.2 Sodium 138 Potassium 4.3 Chloride 106 Carbon Dioxide 26 Anion Gap 6 L BUN 9 Creatinine 0.6 L D Creat Clearance w eGFR > 60 Random Glucose 99 Calcium 8.5 Total Bilirubin 0.6 AST 24 ALT 25 Alkaline Phosphatase 91 Total Protein 7.1 Albumin 3.8 Urine Color Yellow Urine Appearance Clear Urine pH 5.0 Ur Specific [place] 1.023 Urine Protein Negative Urine Glucose (UA) Negative Urine Ketones Negative Urine Blood Negative Urine Nitrite Negative Urine Bilirubin Negative Urine Urobilinogen Negative Ur Leukocyte Esterase Negative RPR Titer 08/06/17 07:40 WBC RBC Hgb Hct MCV MCH MCHC RDW Plt Count MPV Sodium Potassium Chloride Carbon Dioxide Anion Gap BUN Creatinine Creat Clearance w eGFR Random Glucose Calcium Total Bilirubin AST ALT Alkaline Phosphatase Total Protein Albumin Urine Color Urine Appearance Urine pH Ur Specific [place] Urine Protein Urine Glucose (UA) Urine Ketones Urine Blood Urine Nitrite Urine Bilirubin Urine Urobilinogen Ur Leukocyte Esterase RPR Titer Nonreactive LABS NOTED. Assessment: 08/06/17 14:48 WITHDRAWAL SYMPTOMS. Plan: CONTINUE DETOX. INCREASE DAILY PO FLUID INTAKE.
[2017-08-06] MEDS: THIAMINE HCL 100 MG TABLET (FP) PO SCH (22:15)
[2017-08-06] MEDS: traZODone HCL 100 MG TABLET (FP) PO SCH (22:15)
[2017-08-07] MEDS: BUPRENORPHINE/NALOXONE 8 MG/2 MG FILM PACKET SL SCH ×3 (05:38→22:01)
[2017-08-07] MEDS: chlordiazePOXIDE HCL 25 MG CAPSULE PO SCH ×2 (05:38→10:15)
--- NOTE | 2017-08-07 09:38 | PN ---
[facility] CIWA - CIWA Score Nausea/Vomitin-No Nausea/No Vomiting Muscle Tremors: 4-Moderate,w/Arms Extend Anxiety: 4-Mod. Anxious/Guarded Agitation: 4-Moderately Restless Paroxysmal Sweats: 1-Minimal Palms Moist Orientation: 0-Oriented Tacttile Disturbances: 3-Moderate Itch/Numb/Burn Auditory Disturbances: 0-None Visual Disturbances: 0-None Headache: 0-None Present CIWA-Ar Total Score: 16 S Progress Note (SOAP) Subjective: SLIGHT ANXIETY,SWEATS. PT LAYING IN BED.REPORTS HYDRATING AND DETOX PROCEEDING WELL. Objective: 08/07/17 09:37 Vital Signs Temperature 97.1 F L 08/07/17 09:20 Pulse Rate 102 H 08/07/17 09:20 Respiratory Rate 20 08/07/17 09:20 Blood Pressure 124/83 08/07/17 09:20 O2 Sat by Pulse Oximetry (%) Laboratory Last Values WBC 5.8 K/mm3 (4.0-10.0) 08/06/17 07:40 RBC 4.40 M/mm3 (4.00-5.60) 08/06/17 07:40 Hgb 11.8 GM/dL (11.7-16.9) 08/06/17 07:40 Hct 37.0 % (35.4-49) 08/06/17 07:40 MCV 84.1 fl (80-96) 08/06/17 07:40 MCH 26.9 pg (25.7-33.7) 08/06/17 07:40 MCHC 31.9 g/dl (32.0-35.9) L 08/06/17 07:40 RDW 15.2 % (11.9-15.9) 08/06/17 07:40 Plt Count 214 K/MM3 (134-434) 08/06/17 07:40 MPV 9.2 fl (7.5-11.1) 08/06/17 07:40 Sodium 138 mmol/L (136-145) 08/06/17 07:40 Potassium 4.3 mmol/L (3.5-5.1) 08/06/17 07:40 Chloride 106 mmol/L (98-107) 08/06/17 07:40 Carbon Dioxide 26 mmol/L (21-32) 08/06/17 07:40 Anion Gap 6 (8-16) L 08/06/17 07:40 BUN 9 mg/dL (7-18) 08/06/17 07:40 Creatinine 0.6 mg/dL (0.7-1.3) L D 08/06/17 07:40 Creat Clearance w eGFR > 60 (>60) 08/06/17 07:40 Random Glucose 99 mg/dL (74-106) 08/06/17 07:40 Calcium 8.5 mg/dL (8.5-10.1) 08/06/17 07:40 Total Bilirubin 0.6 mg/dL (0.2-1.0) 08/06/17 07:40 AST 24 U/L (15-37) 08/06/17 07:40 ALT 25 U/L (12-78) 08/06/17 07:40 Alkaline Phosphatase 91 U/L (45-117) 08/06/17 07:40 Total Protein 7.1 g/dl (6.4-8.2) 08/06/17 07:40 Albumin 3.8 g/dl (3.4-5.0) 08/06/17 07:40 Urine Color Yellow 08/05/17 17:30 Urine Appearance Clear 08/05/17 17:30 Urine pH 5.0 (5.0-8.0) 08/05/17 17:30 Ur Specific [place] 1.023 (1.001-1.035) 08/05/17 17:30 Urine Protein Negative (NEGATIVE) 08/05/17 17:30 Urine Glucose (UA) Negative (NEGATIVE) 08/05/17 17:30 Urine Ketones Negative (NEGATIVE) 08/05/17 17:30 Urine Blood Negative (NEGATIVE) 08/05/17 17:30 Urine Nitrite Negative (NEGATIVE) 08/05/17 17:30 Urine Bilirubin Negative (NEGATIVE) 08/05/17 17:30 Urine Urobilinogen Negative mg/dL (0.2-1.0) 08/05/17 17:30 Ur Leukocyte Esterase Negative (NEGATIVE) 08/05/17 17:30 RPR Titer Nonreactive (NONREACTIVE) 08/06/17 07:40 Assessment: 08/07/17 09:37 WITHDRAWAL SX Plan: CONTINUE DETOX INCREASE PO FLUIDS.
[2017-08-07] MEDS: NICOTINE 21 MG/24 HOURS TOPICAL PATCH TD SCH (10:16)
[2017-08-07] MEDS: ENALAPRIL MALEATE 10 MG TABLET (FP) PO SCH (10:16)
[2017-08-07] MEDS: PRENATAL VITAMINS W/ FOLIC ACID TABLET (FP) PO SCH (10:16)
[2017-08-07] MEDS: EMTRICITAB/RILPIVIRINE/TENOFOV 1 EACH TABLET PO SCH (10:16)
[2017-08-07] MEDS: BACITRACIN 0.9 GM PACKET TP SCH ×2 (10:16→22:00)
[2017-08-07] MEDS: SULFAMETHOXAZOLE/TRIMETHOPRIM 800MG/160MG D.S. TABLET PO SCH ×2 (10:16→22:00)
[2017-08-07] MEDS: chlordiazePOXIDE 5 MG CAPSULE PO SCH ×2 (17:13→22:01)
[2017-08-07] MEDS: THIAMINE HCL 100 MG TABLET (FP) PO SCH (22:00)
[2017-08-07] MEDS: traZODone HCL 100 MG TABLET (FP) PO SCH (22:00)
[2017-08-08] MEDS: BUPRENORPHINE/NALOXONE 8 MG/2 MG FILM PACKET SL SCH (05:01)
[2017-08-08 09:18] VITALS: BP 121/78; PULSE 94; TEMP 96.1
--- NOTE | 2017-08-08 09:51 | DS ---
[facility] Detox Discharge Summary Admission Date: 08/05/17 Discharge Date: 08/08/17 - History Present History: Alcohol Dependence, Cannabis Dependence, Cocaine Dependence Additional Comments: DETOX COMPLETED. PT ON SUBOXONE AND WILL FOLLOW UP WITH HIS PRESCRIBER AT [facility] UPON DISCHARGE. Pertinent Past History: SEE DX BELOW - Physical Exam Results Vital Signs: Vital Signs Temperature 96.1 F L 08/08/17 09:17 Pulse Rate 94 H 08/08/17 09:17 Respiratory Rate 20 08/08/17 09:17 Blood Pressure 121/78 08/08/17 09:17 O2 Sat by Pulse Oximetry (%) Pertinent Admission Physical Exam Findings: WITHDRAWAL SX Laboratory Last Values WBC 5.8 K/mm3 (4.0-10.0) 08/06/17 07:40 RBC 4.40 M/mm3 (4.00-5.60) 08/06/17 07:40 Hgb 11.8 GM/dL (11.7-16.9) 08/06/17 07:40 Hct 37.0 % (35.4-49) 08/06/17 07:40 MCV 84.1 fl (80-96) 08/06/17 07:40 MCH 26.9 pg (25.7-33.7) 08/06/17 07:40 MCHC 31.9 g/dl (32.0-35.9) L 08/06/17 07:40 RDW 15.2 % (11.9-15.9) 08/06/17 07:40 Plt Count 214 K/MM3 (134-434) 08/06/17 07:40 MPV 9.2 fl (7.5-11.1) 08/06/17 07:40 Sodium 138 mmol/L (136-145) 08/06/17 07:40 Potassium 4.3 mmol/L (3.5-5.1) 08/06/17 07:40 Chloride 106 mmol/L (98-107) 08/06/17 07:40 Carbon Dioxide 26 mmol/L (21-32) 08/06/17 07:40 Anion Gap 6 (8-16) L 08/06/17 07:40 BUN 9 mg/dL (7-18) 08/06/17 07:40 Creatinine 0.6 mg/dL (0.7-1.3) L D 08/06/17 07:40 Creat Clearance w eGFR > 60 (>60) 08/06/17 07:40 Random Glucose 99 mg/dL (74-106) 08/06/17 07:40 Calcium 8.5 mg/dL (8.5-10.1) 08/06/17 07:40 Total Bilirubin 0.6 mg/dL (0.2-1.0) 08/06/17 07:40 AST 24 U/L (15-37) 08/06/17 07:40 ALT 25 U/L (12-78) 08/06/17 07:40 Alkaline Phosphatase 91 U/L (45-117) 08/06/17 07:40 Total Protein 7.1 g/dl (6.4-8.2) 08/06/17 07:40 Albumin 3.8 g/dl (3.4-5.0) 08/06/17 07:40 Urine Color Yellow 08/05/17 17:30 Urine Appearance Clear 08/05/17 17:30 Urine pH 5.0 (5.0-8.0) 08/05/17 17:30 Ur Specific [place] 1.023 (1.001-1.035) 08/05/17 17:30 Urine Protein Negative (NEGATIVE) 08/05/17 17:30 Urine Glucose (UA) Negative (NEGATIVE) 08/05/17 17:30 Urine Ketones Negative (NEGATIVE) 08/05/17 17:30 Urine Blood Negative (NEGATIVE) 08/05/17 17:30 Urine Nitrite Negative (NEGATIVE) 08/05/17 17:30 Urine Bilirubin Negative (NEGATIVE) 08/05/17 17:30 Urine Urobilinogen Negative mg/dL (0.2-1.0) 08/05/17 17:30 Ur Leukocyte Esterase Negative (NEGATIVE) 08/05/17 17:30 RPR Titer Nonreactive (NONREACTIVE) 08/06/17 07:40 - Treatment Hospital Course: Detox Protocol Followed, Detoxed Safely, Responded well, Discharged Condition Good - Medication Discharge Medications: Ambulatory Orders Emtricita/Rilpivirine/Tenof Df [Complera Tablet] 1 each PO DAILY 05/04/15 Albuterol Sulfate Inhaler - [Ventolin HFA Inhaler -] 2 inh IH Q4H PRN 04/12/16 Trazodone HCl [Desyrel -] 100 mg PO HS #30 tablet 04/26/16 Enalapril Maleate [Vasotec] 20 mg PO DAILY 12/22/16 Bacitracin - [Bacitracin Topical Ointment -] 1 applic TP BID #1 applic 12/26/16 Sulfamethoxazole/Trimethoprim [Bactrim Ds -] 1 tab PO BID #20 tablet 12/26/16 Trazodone HCl [Desyrel -] 100 mg PO HS #30 tablet 08/06/17 - Diagnosis (1) Asthma Current Visit: Yes Status: Acute Qualifiers: Asthma severity: unspecified severity Asthma persistence: unspecified Asthma complication type: uncomplicated Qualified Code(s): J45.909 - Unspecified asthma, uncomplicated (2) HIV (human immunodeficiency virus infection) Current Visit: Yes Status: Chronic (3) Weight loss Current Visit: Yes Status: Acute (4) Alcohol dependence with uncomplicated withdrawal Current Visit: Yes Status: Acute (5) Encounter for monitoring Suboxone maintenance therapy Current Visit: Yes Status: Chronic (6) Cocaine dependence, uncomplicated Current Visit: Yes Status: Acute (7) Cannabis dependence Current Visit: Yes Status: Acute (8) Hepatitis C Current Visit: Yes Status: Chronic Qualifiers: Viral hepatitis chronicity: chronic Hepatic coma status: without hepatic coma Qualified Code(s): B18.2 - Chronic viral hepatitis C (9) Nicotine dependence Current Visit: Yes Status: Acute Qualifiers: Nicotine product type: cigarettes Substance use status: in withdrawal Qualified Code(s): F17.213 - Nicotine dependence, cigarettes, with withdrawal - AMA Did Patient Leave Against Medical Advice: No
[2017-08-08] MEDS ORDERED: chlordiazePOXIDE HCL 10 MG CAPSULE PO SCH (17:00)
[2017-08-09] MEDS ORDERED: chlordiazePOXIDE HCL 10 MG CAPSULE PO SCH (05:00)
== END 2017-08-08 09:10 | disposition home or self-care (01) | DRG 773 ==
LOC: YASAS 11:36 → Y3N 15:21
PROVIDERS: ADMIT Internal Medicine; ATTEND Internal Medicine
PROC: HZ2ZZZZ Detoxification Services for Substance Abuse Treatment (ICD-10-PCS; principal; 2017-08-05)
DX: F10.230 Alcohol dependence with withdrawal, uncomplicated (principal); F11.20 Opioid dependence, uncomplicated; F14.20 Cocaine dependence, uncomplicated; F12.20 Cannabis dependence, uncomplicated; F17.213 Nicotine dependence, cigarettes, with withdrawal; F19.24 Other psychoactive substance dependence with psychoactive substance-induced mood disorder; F19.282 Other psychoactive substance dependence with psychoactive substance-induced sleep disorder; F32.9 Major depressive disorder, single episode, unspecified; F41.8 Other specified anxiety disorders; J45.909 Unspecified asthma, uncomplicated; Z21 Asymptomatic human immunodeficiency virus [HIV] infection status; B18.2 Chronic viral hepatitis C; L03.114 Cellulitis of left upper limb; L03.113 Cellulitis of right upper limb; Z87.898 Personal history of other specified conditions
CPT/HCPCS: 36415; 80053; 81003; 85027; 86593; 93005; 93010

== ENCOUNTER 2018-07-14 10:41 | Inpatient (IN) | payer OTHER ==
[2018-07-14 12:41] VITALS: BMI 23.1
--- NOTE | 2018-07-14 14:23 | HP ---
COWS - Scale Resting Pulse: 1= [place] 81-100 Sweatin= Chills/Flushing Restless Observation: 0= Sits Still Pupil Size: 0= Normal to Room Light Bone or Joint Aches: 2= Severe Diffuse Aches Runny Nose/ Eye Tearin= None GI Upset > 30mins: 0= None Tremor Observation: 0= None Yawning Observation: 0= None Anxiety or Irritability: 0= None Goose Flesh Skin: 0=Smooth Skin COWS Score: 4 CIWA Score Nausea/Vomitin-Mild Nausea/No Vomiting Muscle Tremors: 1-None Visible, but [place] Anxiety: 4-Mod. Anxious/Guarded Agitation: 0-Normal Activity Paroxysmal Sweats: 2 Orientation: 0-Oriented Tacttile Disturbances: 0-None Auditory Disturbances: 2-Mild Harshness/Frighten Visual Disturbances: 2-Mild Sensitivity Headache: 0-None Present CIWA-Ar Total Score: 12 - Admission Criteria OASAS Guidelines: Admission for Medically Managed Detox: Requires at least one of the followin. CIWA greater than 12 2. Seizures within the past 24 hours 3. Delirium tremens within the past 24 hours 4. Hallucinations within the past 24 hours 5. Acute intervention needed for co occurring medical disorder 6. Acute intervention needed for co occurring psychiatric disorder 7. Severe withdrawal that cannot be handled at a lower level of care (continued vomiting, continued diarrhea, abnormal vital signs) requiring intravenous medication and/or fluids 8. Patient presents the following: CIWA greater than 12 Admission Criteria Met: Admission criteria met Admission ROS [facility] Allergies/Adverse Reactions: Allergies Allergy/AdvReac Type Severity Reaction Status Date / Time No Known Allergies Allergy Verified 07/14/18 18:57 History of Present Illness: patient here requesting detox from etoh use , reports 1 pint and 6-pk /day , first age of use 18 , most recent detox 1 year ago , longest sobriety 3 mo going to AA / mormonism , relapse 3 weeks ago , reports tremors if not drinking, starts drinking in the morning to " to fix the shakes, the diarrhea " , + blackouts, denies seizures , + falls while intoxicated , most recently hit knees did not go to the hospital , denies current knee pain . latest use this morning , current DAVID 0.013 . Denies SI / HI utox + franchesca , fen , opi cocaine use : 1 gr / day ivdu in yue hands , needles form the pharmacy , denies sharing, + re-using , + abscess most recently 18 mo ago in left knee , went to Health system , latest use yesterday . heroin : occasional use , latest 3 d . ago . was on MMTP 3-4 years ago VIP , highest dose 65 mg , tapered off , currently on Suboxone which he takes alternating with heroin use , latest use of buprenorphine several days ago per patient . tobacco : 1 ppd i-stop This report was requested by: Dianna Sanchez | Reference #: [id number] Others' Prescriptions Patient Name: Abelardo Fernandez Date: 1970 Address: [address] [place] [address] [address] [place] [address] Sex: Male Rx Written Rx Dispensed Drug Quantity Days Supply Prescriber Name 05/28/2018 07/05/2018 suboxone 8 mg-2 mg sl film 90 30 Ishan Nuñez MD 05/28/2018 05/29/2018 suboxone 8 mg-2 mg sl film 90 30 Ishan Nuñez MD 04/23/2018 04/27/2018 suboxone 8 mg-2 mg sl film 90 30 GrossIshan mccormack MD 04/17/2018 04/18/2018 suboxone 8 mg-2 mg sl film 30 10 Ishan Nuñez MD 03/19/2018 03/23/2018 suboxone 8 mg-2 mg sl film 90 30 Ishan Nuñez MD 02/20/2018 02/21/2018 suboxone 8 mg-2 mg sl film 90 30 Ishan Nuñez MD 01/15/2018 01/19/2018 suboxone 8 mg-2 mg sl film 90 30 Ishan Nuñez MD 10/02/2017 12/04/2017 suboxone 8 mg-2 mg sl film 90 30 Ishan Nuñez MD 10/02/2017 11/09/2017 suboxone 8 mg-2 mg sl film 90 30 Ishan Nuñez MD 10/02/2017 10/08/2017 suboxone 8 mg-2 mg sl film 90 30 Ishan Nuñez MD 09/28/2017 09/29/2017 suboxone 8 mg-2 mg sl film 30 10 Ishan Nuñez MD 08/04/2017 08/08/2017 suboxone 8 mg-2 mg sl film 90 30 Ishan Nuñez MD PMHX : HIV + since 2009 ( RF= IVDU) goes to [facility] , did not bring [facility] called pharmacy No answer asthma dx 2013 ( hospitalized x once not intubated ) , htn since 2013 pshx : denies psych : depression Shx: lives w/ GF , works construction latest 2 weeks ago , legal denies Exam Limitations: No Limitations - Ebola screening Have you traveled outside of the country in the last 21 days: No (N) Have you had contact with anyone from an Ebola affected area: No Have you been sick,other than usual withdrawal symptoms: No Do you have a fever: No - Review of Systems Constitutional: See HPI EENT: reports: Other (reading glasses , denies dysphagia , upper dentures) Respiratory: reports: No Symptoms reported Cardiac: reports: No Symptoms Reported GI: reports: See HPI : reports: No Symptoms Reported Musculoskeletal: reports: Back Pain, Muscle Pain Integumentary: reports: See HPI Neuro: reports: Headache Endocrine: reports: No Symptoms Reported Psychiatric: reports: Orientated x3 (see HPI) Patient History - Patient Medical History Hx Anemia: Yes (VIT B) Hx Asthma: Yes (ALBUTEROL INHALER) Hx Chronic Obstructive Pulmonary Disease (COPD): No Hx Cancer: No Hx Cardiac Disorders: No Hx Congestive Heart Failure: No Hx Hypertension: Yes (ON ENALAPRIL 20 MG DAILY) Hx Hypercholesterolemia: No Hx Pacemaker: No HX Cerebrovascular Accident: No Hx Seizures: No Hx Dementia: No Hx Diabetes: No Hx Gastrointestinal Disorders: No Hx Liver Disease: No Hx Genitourinary Disorders: No Hx Sexually Transmitted Disorders: No Hx Renal Disease (ESRD): No Hx Thyroid Disease: No Hx Human Immunodeficiency Virus (HIV): Yes (2011-COMPLE, tx at [facility] SINCE 2009) Hx Hepatitis C: Yes (TX'ED) Hx Depression: Yes Hx Suicide Attempt: No Hx Bipolar Disorder: No Hx Schizophrenia: No - Patient Surgical History Past Surgical History: No Hx Neurologic Surgery: No Hx Cataract Extraction: No Hx Cardiac Surgery: No Hx Lung Surgery: No Hx Breast Surgery: No Hx Breast Biopsy: No Hx Abdominal Surgery: No Hx Appendectomy: No Hx Cholecystectomy: No Hx Genitourinary Surgery: No Hx Section: No Hx Orthopedic Surgery: No Anesthesia Reaction: No - PPD History Date: 08/07/17 Results: 0 mm - Smoking Cessation Smoking history: Current every day smoker Have you smoked in the past 12 months: Yes Aproximately how many cigarettes per day: 20 Cigars Per Day: 0 Hx Chewing Tobacco Use: No Initiated information on smoking cessation: No - Substances Abused Alcohol Route: Oral Frequency: Daily Amount used: 1 PINT BEER Age of first use: 18 Date of Last Use: 07/14/18 Heroin Route: Injection Frequency: Daily Amount used: 2 BAGS Age of first use: 22 Date of Last Use: 07/14/18 Cocaine Route: Smoking Frequency: Daily Amount used: 2 DIMES Age of first use: 24 Date of Last Use: 07/14/18 Family Disease History - Family Disease History Family Disease History: Other: Father (DEPENDENT ON ETOH AND DRUGS AND ), Mother (ALZHIEMERS) Admission Physical Exam [facility] - Vital Signs Vital Signs: Vital Signs - 24 hr 07/14/18 12:39 Temperature 99.0 F Pulse Rate 94 H Respiratory 18 Rate Blood Pressure 127/80 - Physical General Appearance: Yes: Mild Distress HEENTM: Yes: EOMI, Hearing grossly Normal, Normocephalic, Normal Voice Respiratory: Yes: Chest Non-Tender, Lungs Clear, Normal Breath Sounds Neck: Yes: No masses,lesions,Nodules, Trachea in good position Breast: Yes: Breast Exam Deferred Cardiology: Yes: Regular Rhythm, Regular Rate, S1, S2 Abdominal: Yes: Normal Bowel Sounds, Soft Genitourinary: Yes: Within Normal Limits Back: Yes: Normal Inspection Musculoskeletal: Yes: Gait Steady Extremities: Yes: Normal Inspection, Non-Tender Neurological: Yes: Motor Strength 5/5, Normal Mood/Affect Integumentary: Yes: Track Proctor - Diagnostic (1) Alcohol dependence with uncomplicated withdrawal Current Visit: No Status: Acute (2) Cocaine dependence, uncomplicated Current Visit: No Status: Chronic (3) Nicotine dependence Current Visit: No Status: Chronic Qualifiers: Nicotine product type: cigarettes Substance use status: uncomplicated Qualified Code(s): F17.210 - Nicotine dependence, cigarettes, uncomplicated (4) Opioid dependence on agonist therapy Current Visit: No Status: Acute BHS Breath Alcohol Content Breath Alcohol Content: 0.013 Urine Drug Screen - Results Drug Screen Negative: No Urine Drug Screen Results: FRANCHESCA-Cocaine, OPI-Opiates, FEN-Fentanyl
[2018-07-14] MEDS ORDERED: MAGNESIUM HYDROX 2400MG/30ML ORAL SUSPENSION 30 ML CUP PO PRN (14:34)
[2018-07-14] MEDS ORDERED: chlordiazePOXIDE HCL 25 MG CAPSULE PO PRN (14:34)
[2018-07-14] MEDS ORDERED: MAGNESIUM CITRATE 300 ML BOTTLE PO PRN (14:34)
[2018-07-14] MEDS ORDERED: P-EPHED 60MG/TRIPROLIDI 2.5MG TABLET PO PRN (14:34)
[2018-07-14] MEDS ORDERED: MAG HYDROX/AL HYDROX/SIMETH 30 ML UNIT-DOSE CUP PO PRN (14:34)
[2018-07-14] MEDS ORDERED: guaiFENesin/D-METHORPHAN HB 10 ML UNIT-DOSE CUPS PO PRN (14:34)
[2018-07-14] MEDS ORDERED: ACETAMINOPHEN 325 MG TABLET (FP) PO PRN (14:34)
[2018-07-14] MEDS ORDERED: NICOTINE POLACRILEX 2 MG GUM BUC PRN (14:34)
[2018-07-14] MEDS ORDERED: IBUPROFEN 400 MG TABLET (FP) PO PRN (14:34)
[2018-07-14] MEDS ORDERED: MENTHOL/PHENOL 1 EACH UD MM PRN (14:34)
[2018-07-14] MEDS ORDERED: ALBUTEROL SO4 8 GM HFA INHALER IH PRN (14:35)
[2018-07-14] MEDS ORDERED: BUPRENORPHINE/NALOXONE 2 MG/0.5 MG FILM PACKET SL ONE ×2 (18:45→22:00)
[2018-07-14] MEDS: chlordiazePOXIDE HCL 25 MG CAPSULE PO SCH ×2 (19:20→23:12)
[2018-07-14] MEDS: THIAMINE HCL 100 MG TABLET (FP) PO SCH (23:12)
[2018-07-15] MEDS: chlordiazePOXIDE HCL 25 MG CAPSULE PO SCH ×4 (05:07→22:08)
[2018-07-15] MEDS: PRENATAL VITAMINS W/ FOLIC ACID TABLET (FP) PO SCH (10:17)
[2018-07-15] MEDS: BUPRENORPHINE/NALOXONE 8 MG/2 MG FILM PACKET SL SCH (10:17)
[2018-07-15] MEDS: ENALAPRIL MALEATE 10 MG TABLET (FP) PO SCH (10:18)
[2018-07-15 10:50] LABS: HEMATOCRIT 36.8 % (35.4-49); HEMOGLOBIN 11.6 GM/dL (11.7-16.9); MCH 26.4 pg (25.7-33.7); MCHC 31.5 g/dl (32.0-35.9); MEAN CELL VOLUME 83.8 fl (80-96); MEAN PLT VOLUME 8.3 fl (7.5-11.1); PLATELET COUNT 211 K/MM3 (134-434); RBC 4.39 M/mm3 (4.00-5.60); RDW 14.8 % (11.9-15.9); WHITE BLOOD COUNT 4.4 K/mm3 (4.0-10.0)
[2018-07-15 10:54] LABS: ALBUMIN 3.7 g/dl (3.4-5.0); ALK PHOS 133 U/L (45-117); ANION GAP 6 MMOL/L (8-16); BILIRUBIN,TOTAL 0.5 mg/dL (0.2-1); BLOOD UREA NITROGEN 9 mg/dL (7-18); CALCIUM 8.6 mg/dL (8.5-10.1); CHLORIDE 107 mmol/L (98-107); CO2 27 mmol/L (21-32); CREATININE 0.7 mg/dL (0.55-1.3); GLUCOSE,RANDOM 89 mg/dL (74-106); POTASSIUM 4.2 mmol/L (3.5-5.1); SGOT/AST 27 U/L (15-37); SGPT/ALT 33 U/L (13-61); SODIUM 140 mmol/L (136-145); TOT PROT 6.6 g/dl (6.4-8.2)
[2018-07-15] MEDS ORDERED: LOPERAMIDE HCL 2 MG CAPSULE PO ONE (10:57)
[2018-07-15] MEDS: EMTRICITAB/RILPIVIRINE/TENOFOV 1 EACH TABLET PO SCH (12:43)
[2018-07-15] MEDS ORDERED: LOPERAMIDE HCL 2 MG CAPSULE PO PRN (13:00)
[2018-07-15] MEDS: NICOTINE 21 MG/24 HOURS TOPICAL PATCH TD SCH (13:51)
[2018-07-15] MEDS ORDERED: ALBUTEROL SO4 8 GM HFA INHALER IH PRN (16:12)
--- NOTE | 2018-07-15 16:16 | PN ---
S CIWA - CIWA Score Nausea/Vomitin Muscle Tremors: 4-Moderate,w/Arms Extend Anxiety: 4-Mod. Anxious/Guarded Agitation: 2 Paroxysmal Sweats: 3 Orientation: 0-Oriented Tacttile Disturbances: 1-Very Mild Itch/Numbness Auditory Disturbances: 0-None Visual Disturbances: 0-None Headache: 1-Very Mild CIWA-Ar Total Score: 17 BHS Progress Note (SOAP) Subjective: Chills, sweating, tremor, diarrhea Objective: 07/15/18 16:14 Last Vital Signs Temp Pulse Resp BP Pulse Ox 98.5 F 76 18 108/69 07/15/18 14:15 07/15/18 14:15 07/15/18 14:15 07/15/18 14:15 Laboratory Tests 07/15/18 07/15/18 07/15/18 07:50 07:50 07:50 WBC 4.4 RBC 4.39 Hgb 11.6 L Hct 36.8 MCV 83.8 MCH 26.4 MCHC 31.5 L RDW 14.8 Plt Count 211 MPV 8.3 Sodium 140 Potassium 4.2 Chloride 107 Carbon Dioxide 27 Anion Gap 6 L BUN 9 Creatinine 0.7 Creat Clearance w eGFR > 60 Random Glucose 89 Calcium 8.6 Total Bilirubin 0.5 AST 27 ALT 33 Alkaline Phosphatase 133 H Total Protein 6.6 Albumin 3.7 RPR Titer Nonreactive Labs reviewed Assessment: 07/15/18 16:15 Withdrawal symptoms Plan: Continue detox Encouraged PO water intake
[2018-07-15] MEDS: MELATONIN 5 MG TABLETS PO PRN (22:08)
[2018-07-15] MEDS: THIAMINE HCL 100 MG TABLET (FP) PO SCH (22:08)
[2018-07-16] MEDS: chlordiazePOXIDE HCL 25 MG CAPSULE PO SCH ×2 (05:44→10:01)
[2018-07-16] MEDS: PRENATAL VITAMINS W/ FOLIC ACID TABLET (FP) PO SCH (10:01)
[2018-07-16] MEDS: EMTRICITAB/RILPIVIRINE/TENOFOV 1 EACH TABLET PO SCH (10:02)
[2018-07-16] MEDS: NICOTINE 21 MG/24 HOURS TOPICAL PATCH TD SCH (10:02)
[2018-07-16] MEDS: ENALAPRIL MALEATE 10 MG TABLET (FP) PO SCH (10:02)
[2018-07-16] MEDS: BUPRENORPHINE/NALOXONE 8 MG/2 MG FILM PACKET SL SCH (10:03)
--- NOTE | 2018-07-16 12:23 | PN ---
S CIWA - CIWA Score Nausea/Vomitin-Mild Nausea/No Vomiting Muscle Tremors: 3 Anxiety: 2 Agitation: 3 Paroxysmal Sweats: 1-Minimal Palms Moist Orientation: 0-Oriented Tacttile Disturbances: 0-None Auditory Disturbances: 0-None Visual Disturbances: 0-None Headache: 1-Very Mild CIWA-Ar Total Score: 11 S Progress Note (SOAP) Subjective: tremor sweating restlessness irritable Objective: 07/16/18 12:24 Vital Signs Temperature 97.1 F L 07/16/18 09:26 Pulse Rate 87 07/16/18 09:26 Respiratory Rate 18 07/16/18 09:26 Blood Pressure 120/70 07/16/18 09:26 O2 Sat by Pulse Oximetry (%) Laboratory Last Values WBC 4.4 K/mm3 (4.0-10.0) 07/15/18 07:50 RBC 4.39 M/mm3 (4.00-5.60) 07/15/18 07:50 Hgb 11.6 GM/dL (11.7-16.9) L 07/15/18 07:50 Hct 36.8 % (35.4-49) 07/15/18 07:50 MCV 83.8 fl (80-96) 07/15/18 07:50 MCH 26.4 pg (25.7-33.7) 07/15/18 07:50 MCHC 31.5 g/dl (32.0-35.9) L 07/15/18 07:50 RDW 14.8 % (11.9-15.9) 07/15/18 07:50 Plt Count 211 K/MM3 (134-434) 07/15/18 07:50 MPV 8.3 fl (7.5-11.1) 07/15/18 07:50 Sodium 140 mmol/L (136-145) 07/15/18 07:50 Potassium 4.2 mmol/L (3.5-5.1) 07/15/18 07:50 Chloride 107 mmol/L (98-107) 07/15/18 07:50 Carbon Dioxide 27 mmol/L (21-32) 07/15/18 07:50 Anion Gap 6 MMOL/L (8-16) L 07/15/18 07:50 BUN 9 mg/dL (7-18) 07/15/18 07:50 Creatinine 0.7 mg/dL (0.55-1.3) 07/15/18 07:50 Creat Clearance w eGFR > 60 (>60) 07/15/18 07:50 Random Glucose 89 mg/dL (74-106) 07/15/18 07:50 Calcium 8.6 mg/dL (8.5-10.1) 07/15/18 07:50 Total Bilirubin 0.5 mg/dL (0.2-1) 07/15/18 07:50 AST 27 U/L (15-37) 07/15/18 07:50 ALT 33 U/L (13-61) 07/15/18 07:50 Alkaline Phosphatase 133 U/L (45-117) H 07/15/18 07:50 Total Protein 6.6 g/dl (6.4-8.2) 07/15/18 07:50 Albumin 3.7 g/dl (3.4-5.0) 07/15/18 07:50 RPR Titer Nonreactive (NONREACTIVE) 07/15/18 07:50 lab noted Assessment: 07/16/18 12:25 withdrawal sx Plan: continue detox
[2018-07-16] MEDS: chlordiazePOXIDE 5 MG CAPSULE PO SCH ×2 (17:05→22:05)
[2018-07-16] MEDS: THIAMINE HCL 100 MG TABLET (FP) PO SCH (22:05)
[2018-07-17] MEDS: chlordiazePOXIDE 5 MG CAPSULE PO SCH ×2 (05:21→10:46)
[2018-07-17] MEDS: PRENATAL VITAMINS W/ FOLIC ACID TABLET (FP) PO SCH (10:03)
[2018-07-17] MEDS: EMTRICITAB/RILPIVIRINE/TENOFOV 1 EACH TABLET PO SCH (10:04)
[2018-07-17] MEDS: NICOTINE 21 MG/24 HOURS TOPICAL PATCH TD SCH (10:04)
[2018-07-17] MEDS: BUPRENORPHINE/NALOXONE 8 MG/2 MG FILM PACKET SL SCH (10:04)
[2018-07-17] MEDS: ENALAPRIL MALEATE 10 MG TABLET (FP) PO SCH (11:34)
--- NOTE | 2018-07-17 15:52 | PN ---
BHS Progress Note (SOAP) Subjective: Patient Denies Any Current Withdrawal/Detox Symptoms. Objective: PATIENT A & O X 3, OBSERVED AMBULATING ON UNIT. IN NO ACUTE DISTRESS. 07/17/18 15:51 Vital Signs Temperature 96.8 F L 07/17/18 13:10 Pulse Rate 78 07/17/18 13:10 Respiratory Rate 18 07/17/18 13:10 Blood Pressure 114/67 07/17/18 13:10 O2 Sat by Pulse Oximetry (%) Laboratory Tests 07/15/18 07/15/18 07/15/18 07:50 07:50 07:50 WBC 4.4 RBC 4.39 Hgb 11.6 L Hct 36.8 MCV 83.8 MCH 26.4 MCHC 31.5 L RDW 14.8 Plt Count 211 MPV 8.3 Sodium 140 Potassium 4.2 Chloride 107 Carbon Dioxide 27 Anion Gap 6 L BUN 9 Creatinine 0.7 Creat Clearance w eGFR > 60 Random Glucose 89 Calcium 8.6 Total Bilirubin 0.5 AST 27 ALT 33 Alkaline Phosphatase 133 H Total Protein 6.6 Albumin 3.7 RPR Titer Nonreactive LABS NOTED. Assessment: 07/17/18 15:51 WITHDRAWAL SYMPTOMS. Plan: CONTINUE DETOX. PATIENT SCHEDULED FOR D/C TOMORROW AM.
[2018-07-17] MEDS: chlordiazePOXIDE HCL 10 MG CAPSULE PO SCH ×2 (18:30→22:06)
[2018-07-17] MEDS: THIAMINE HCL 100 MG TABLET (FP) PO SCH (22:05)
[2018-07-17] MEDS: MELATONIN 5 MG TABLETS PO PRN (22:05)
[2018-07-18 06:05] VITALS: BP 108/60; PULSE 61; TEMP 96.9
--- NOTE | 2018-07-18 08:11 | DS ---
[facility] Detox Discharge Summary Admission Date: 07/14/18 Discharge Date: 07/18/18 - History Present History: Alcohol Dependence Additional Comments: 48 years old male admitted on07/14/18 for alcohol withdrawal stabilization completed detox regimen aftercare hiv infectious disease specialist and suboxone maintenance program provider at [facility] - Physical Exam Results Vital Signs: Vital Signs Temperature 96.9 F L 07/18/18 06:05 Pulse Rate 61 07/18/18 06:05 Respiratory Rate 18 07/18/18 06:05 Blood Pressure 108/60 07/18/18 06:05 O2 Sat by Pulse Oximetry (%) Pertinent Admission Physical Exam Findings: alcohol withdrawal sx Laboratory Last Values WBC 4.4 K/mm3 (4.0-10.0) 07/15/18 07:50 RBC 4.39 M/mm3 (4.00-5.60) 07/15/18 07:50 Hgb 11.6 GM/dL (11.7-16.9) L 07/15/18 07:50 Hct 36.8 % (35.4-49) 07/15/18 07:50 MCV 83.8 fl (80-96) 07/15/18 07:50 MCH 26.4 pg (25.7-33.7) 07/15/18 07:50 MCHC 31.5 g/dl (32.0-35.9) L 07/15/18 07:50 RDW 14.8 % (11.9-15.9) 07/15/18 07:50 Plt Count 211 K/MM3 (134-434) 07/15/18 07:50 MPV 8.3 fl (7.5-11.1) 07/15/18 07:50 Sodium 140 mmol/L (136-145) 07/15/18 07:50 Potassium 4.2 mmol/L (3.5-5.1) 07/15/18 07:50 Chloride 107 mmol/L (98-107) 07/15/18 07:50 Carbon Dioxide 27 mmol/L (21-32) 07/15/18 07:50 Anion Gap 6 MMOL/L (8-16) L 07/15/18 07:50 BUN 9 mg/dL (7-18) 07/15/18 07:50 Creatinine 0.7 mg/dL (0.55-1.3) 07/15/18 07:50 Creat Clearance w eGFR > 60 (>60) 07/15/18 07:50 Random Glucose 89 mg/dL (74-106) 07/15/18 07:50 Calcium 8.6 mg/dL (8.5-10.1) 07/15/18 07:50 Total Bilirubin 0.5 mg/dL (0.2-1) 07/15/18 07:50 AST 27 U/L (15-37) 07/15/18 07:50 ALT 33 U/L (13-61) 07/15/18 07:50 Alkaline Phosphatase 133 U/L (45-117) H 07/15/18 07:50 Total Protein 6.6 g/dl (6.4-8.2) 07/15/18 07:50 Albumin 3.7 g/dl (3.4-5.0) 07/15/18 07:50 RPR Titer Nonreactive (NONREACTIVE) 07/15/18 07:50 lab noted - Treatment Hospital Course: Detox Protocol Followed, Detoxed Safely, Responded well, Discharged Condition Good, Rehab Referral Accepted Patient has Accepted a Rehab Referral to: [facility] infectious disease specialist suboxone program - Medication Discharge Medications: Ambulatory Orders Emtricita/Rilpivirine/Tenof Df [Complera Tablet] 1 each PO DAILY 05/04/15 Albuterol Sulfate Inhaler - [Ventolin HFA Inhaler -] 2 inh IH Q4H PRN #1 inhaler 07/18/18 Enalapril Maleate [Vasotec] 20 mg PO DAILY #14 tablet 07/18/18 - Diagnosis (1) Alcohol dependence with uncomplicated withdrawal Status: Acute (2) HIV (human immunodeficiency virus infection) Status: Chronic Qualifiers: HIV symptom status: unspecified Qualified Code(s): B20 - Human immunodeficiency virus [HIV] disease (3) Hepatitis C Status: Chronic Qualifiers: Viral hepatitis chronicity: unspecified Hepatic coma status: without hepatic coma Qualified Code(s): B19.20 - Unspecified viral hepatitis C without hepatic coma (4) Nicotine dependence Status: Acute Qualifiers: Nicotine product type: cigarettes Substance use status: in withdrawal Qualified Code(s): F17.213 - Nicotine dependence, cigarettes, with withdrawal (5) Substance induced mood disorder Status: Suspected (6) Weight loss Status: Acute (7) Encounter for monitoring Suboxone maintenance therapy Status: Chronic - AMA Did Patient Leave Against Medical Advice: No
== END 2018-07-18 08:40 | disposition home or self-care (01) | DRG 773 ==
LOC: YASAS 10:41 → Y3N 18:25
PROC: HZ2ZZZZ Detoxification Services for Substance Abuse Treatment (ICD-10-PCS; principal; 2018-07-14)
DX: F10.230 Alcohol dependence with withdrawal, uncomplicated (principal); F14.20 Cocaine dependence, uncomplicated; F11.20 Opioid dependence, uncomplicated; F17.213 Nicotine dependence, cigarettes, with withdrawal; F19.24 Other psychoactive substance dependence with psychoactive substance-induced mood disorder; F32.9 Major depressive disorder, single episode, unspecified; Z21 Asymptomatic human immunodeficiency virus [HIV] infection status; B19.20 Unspecified viral hepatitis C without hepatic coma; I10 Essential (primary) hypertension; J45.909 Unspecified asthma, uncomplicated; D64.9 Anemia, unspecified; R63.4 Abnormal weight loss; Z68.23 Body mass index [BMI] 23.0-23.9, adult; Z51.81 Encounter for therapeutic drug level monitoring
CPT/HCPCS: 36415; 80053; 85027; 86593

== ENCOUNTER 2018-09-13 12:52 | Inpatient (IN) | payer OTHER ==
[2018-09-13 14:05] VITALS: BMI 21.6
--- NOTE | 2018-09-13 15:30 | HP ---
CIWA Score Nausea/Vomitin Muscle Tremors: 2 Anxiety: 3 Agitation: 0-Normal Activity Paroxysmal Sweats: 3 Orientation: 2-Disoriented Date<2 days Tacttile Disturbances: 0-None Auditory Disturbances: 0-None Visual Disturbances: 1-Very Mild Sensitivity Headache: 0-None Present CIWA-Ar Total Score: 14 - Admission Criteria OASAS Guidelines: Admission for Medically Managed Detox: Requires at least one of the followin. CIWA greater than 12 2. Seizures within the past 24 hours 3. Delirium tremens within the past 24 hours 4. Hallucinations within the past 24 hours 5. Acute intervention needed for co occurring medical disorder 6. Acute intervention needed for co occurring psychiatric disorder 7. Severe withdrawal that cannot be handled at a lower level of care (continued vomiting, continued diarrhea, abnormal vital signs) requiring intravenous medication and/or fluids 8. Patient presents the following: CIWA greater than 12, Acute intervention needed for co-occurring med or psych disorder Admission Criteria Met: Admission criteria met Admission ROS S - HPI Chief Complaint: " I need to change my life" Allergies/Adverse Reactions: Allergies Allergy/AdvReac Type Severity Reaction Status Date / Time No Known Allergies Allergy Verified 09/13/18 15:20 History of Present Illness: Patient with hx of Gokul, alcohol, marijuana and heroin dependence is here is seeking alcohol detox, d/t withdrawal symptoms c/o nausea, vomiting and "the shakes." Patient currently on suboxone MAT on 24 mg QD, reports continues occasional intravenous heroin use. PMHX: HIV, Hep C and treated, asthma, HTN. psych anxiety. Denies suicidal / homicidal ideation or hx of suicide attempt. Reports ETOH seizure one year ago. Denies suicidal / homicidal ideation. Exam Limitations: No Limitations - Ebola screening Have you traveled outside of the country in the last 21 days: No Have you had contact with anyone from an Ebola affected area: No Have you been sick,other than usual withdrawal symptoms: No - Review of Systems Constitutional: Diaphoresis, Loss of Appetite, Unintentional Wgt. Loss, Unexplained wgt Loss EENT: reports: No Symptoms Reported Respiratory: reports: SOB with Exertion Cardiac: reports: No Symptoms Reported GI: reports: Diarrhea, Nausea, Poor Appetite, Poor Fluid Intake, Vomiting, Abdominal cramping : reports: No Symptoms Reported Musculoskeletal: reports: Back Pain (chonic) Integumentary: reports: No Symptoms Reported Neuro: reports: See HPI Endocrine: reports: Increased Thirst Hematology: reports: See HPI Psychiatric: reports: Orientated x3, Anxious, Depressed Other Systems: Reviewed and Negative Patient History - Patient Medical History Hx Anemia: Yes (VIT B) Hx Asthma: Yes Hx Chronic Obstructive Pulmonary Disease (COPD): No Hx Cancer: No Hx Cardiac Disorders: No Hx Congestive Heart Failure: No Hx Hypertension: No Hx Hypercholesterolemia: No Hx Pacemaker: No HX Cerebrovascular Accident: No Hx Seizures: Yes (etoh r/t 2017) Hx Dementia: No Hx Diabetes: No Hx Gastrointestinal Disorders: No Hx Liver Disease: No Hx Genitourinary Disorders: No Hx Sexually Transmitted Disorders: No Hx Renal Disease (ESRD): No Hx Thyroid Disease: No Hx Human Immunodeficiency Virus (HIV): Yes (2011-COMPLERA, tx at [facility] SINCE 2009) Hx Hepatitis C: Yes (TX'ED) Hx Depression: Yes Hx Suicide Attempt: No Hx Bipolar Disorder: No Hx Schizophrenia: No - Patient Surgical History Past Surgical History: No Hx Neurologic Surgery: No Hx Cataract Extraction: No Hx Cardiac Surgery: No Hx Lung Surgery: No Hx Breast Surgery: No Hx Breast Biopsy: No Hx Abdominal Surgery: No Hx Appendectomy: No Hx Cholecystectomy: No Hx Genitourinary Surgery: No Hx Section: No Hx Orthopedic Surgery: No Anesthesia Reaction: No - PPD History Previous Implant?: Yes Documented Results: Negative w/proof Date: 08/07/17 Results: 0 mm PPD to be Administered?: Yes - Reproductive History Patient : No - Smoking Cessation Smoking history: Current every day smoker Have you smoked in the past 12 months: Yes Aproximately how many cigarettes per day: 20 Cigars Per Day: 0 Hx Chewing Tobacco Use: No Initiated information on smoking cessation: Yes 'Breaking Loose' booklet given: 09/13/18 - Substance & Tx. History Hx Alcohol Use: Yes Hx Substance Use: Yes Substance Use Type: Alcohol, Cocaine, Heroin Hx Substance Use Treatment: Yes (Detox [facility] 07/14/18 - 07/18/18) - Substances Abused Alcohol Route: Oral Frequency: Daily Amount used: 1 pt. vodka, 1 six beer (12 oz cans) Age of first use: 20 Date of Last Use: 09/13/18 Cocaine Route: Injection Frequency: 3-6 times per week Amount used: 2 bags Age of first use: 18 Date of Last Use: 09/13/18 Heroin Route: Injection Frequency: 3-6 times per week Amount used: 2 bags Age of first use: 23 Date of Last Use: 09/13/18 Family Disease History - Family Disease History Family Disease History: Other: Father (DEPENDENT ON ETOH AND DRUGS AND ), Mother (ALZHIEMERS) Admission Physical Exam S - Vital Signs Vital Signs: Vital Signs - 24 hr 09/13/18 14:02 Temperature 97.1 F L Pulse Rate 99 H Respiratory 20 Rate Blood Pressure 129/69 - Physical General Appearance: Yes: Appropriately Dressed, Disheveled, Thin, Tremorous, Sweating, Anxious HEENTM: Yes: EOMI, Hearing grossly Normal, Normal ENT Inspection, Normocephalic , Normal Voice, OSITO, Pharynx Normal, Tm's normal Respiratory: Yes: Chest Non-Tender, Lungs Clear, Normal Breath Sounds, No Respiratory Distress, No Accessory Muscle Use Neck: Yes: Within Normal Limits Breast: Yes: Breast Exam Deferred Cardiology: Yes: Regular Rhythm, Regular Rate Abdominal: Yes: Normal Bowel Sounds, Non Tender, Flat, Soft Genitourinary: Yes: Within Normal Limits Back: Yes: Normal Inspection Musculoskeletal: Yes: full range of Motion, Gait Steady, Pelvis Stable Extremities: Yes: Normal Capillary Refill, Normal Inspection, Normal Range of Motion, Other Neurological: Yes: product support representative II-XII NML intact, Alert, Motor Strength 5/5, Depressed Affect Integumentary: Yes: Normal Color, Warm, Erythema (right hand), Track Proctor ( both hands and forearm) Lymphatic: Yes: Within Normal Limits - Diagnostic (1) Cellulitis of hand Current Visit: Yes Status: Acute (2) Alcohol dependence with uncomplicated withdrawal Current Visit: Yes Status: Acute (3) Cannabis dependence Current Visit: Yes Status: Acute (4) Nicotine dependence Current Visit: Yes Status: Acute Qualifiers: Nicotine product type: cigarettes Substance use status: in withdrawal Qualified Code(s): F17.213 - Nicotine dependence, cigarettes, with withdrawal (5) Opioid dependence on agonist therapy Current Visit: Yes Status: Chronic Comment: on Suboxone 8 mg TID (6) Weight loss Current Visit: Yes Status: Acute (7) Cocaine dependence Current Visit: Yes Status: Chronic Qualifiers: Substance use status: uncomplicated Qualified Code(s): F14.20 - Cocaine dependence, uncomplicated (8) HIV (human immunodeficiency virus infection) Current Visit: Yes Status: Chronic Qualifiers: HIV symptom status: unspecified Qualified Code(s): B20 - Human immunodeficiency virus [HIV] disease (9) HTN (hypertension), benign Current Visit: Yes Status: Chronic (10) Hepatitis C Current Visit: Yes Status: Chronic Qualifiers: Viral hepatitis chronicity: unspecified Hepatic coma status: without hepatic coma Qualified Code(s): B19.20 - Unspecified viral hepatitis C without hepatic coma Comment: TREATED AND UNDETECTABLE PER PATIENT. Cleared for Admission [facility] - Detox or Rehab [facility] Level of Care: Medically Managed Detox Regimen/Protocol: Librium [facility] Breath Alcohol Content Breath Alcohol Content: 0 Urine Drug Screen - Results Drug Screen Negative: No Urine Drug Screen Results: THC-Marijuana, ARNAUD-Cocaine, OPI-Opiates, BZO- Benzodiazepines, FEN-Fentanyl, BUP-Suboxone Inpatient Rehab Admission - Rehab Decision to Admit Inpatient rehab admission?: No
[2018-09-13] MEDS ORDERED: ALBUTEROL SO4 8 GM HFA INHALER IH PRN (15:39)
[2018-09-13] MEDS ORDERED: IBUPROFEN 400 MG TABLET (FP) PO PRN (15:43)
[2018-09-13] MEDS ORDERED: MAG HYDROX/AL HYDROX/SIMETH 30 ML UNIT-DOSE CUP PO PRN (15:43)
[2018-09-13] MEDS ORDERED: MAGNESIUM CITRATE 300 ML BOTTLE PO PRN (15:43)
[2018-09-13] MEDS ORDERED: MENTHOL/PHENOL 1 EACH UD MM PRN (15:43)
[2018-09-13] MEDS ORDERED: chlordiazePOXIDE HCL 25 MG CAPSULE PO PRN (15:43)
[2018-09-13] MEDS ORDERED: METHOCARBAMOL 500 MG TABLET PO PRN (15:43)
[2018-09-13] MEDS ORDERED: MAGNESIUM HYDROX 2400MG/30ML ORAL SUSPENSION 30 ML CUP PO PRN (15:43)
[2018-09-13] MEDS ORDERED: ACETAMINOPHEN 325 MG TABLET (FP) PO PRN ×2 (15:43)
[2018-09-13] MEDS ORDERED: chlordiazePOXIDE HCL 25 MG CAPSULE PO ONE ×2 (15:43→16:45)
[2018-09-13] MEDS ORDERED: ONDANSETRON *ODT* 4 MG TABLET SL PRN (15:43)
[2018-09-13] MEDS ORDERED: guaiFENesin 200 MG/10 ML 10 ML UNIT-DOSE CUPS PO PRN (15:43)
[2018-09-13] MEDS ORDERED: hydrOXYzine PAMOATE 25 MG CAPSULE (FP) PO PRN (15:43)
[2018-09-13] MEDS ORDERED: NICOTINE POLACRILEX 2 MG GUM BUC PRN (15:43)
[2018-09-13] MEDS: CEPHALEXIN MONOHYDRATE 250 MG CAPSULE (FP) PO SCH ×2 (17:01→23:09)
[2018-09-13] MEDS: chlordiazePOXIDE HCL 25 MG CAPSULE PO SCH (22:02)
[2018-09-13] MEDS: BACITRACIN 0.9 GM PACKET TP SCH (22:02)
[2018-09-13] MEDS: MELATONIN 5 MG TABLETS PO PRN (22:03)
[2018-09-13] MEDS: BUPRENORPHINE/NALOXONE 8 MG/2 MG FILM PACKET SL SCH (22:03)
[2018-09-13] MEDS: THIAMINE HCL 100 MG TABLET (FP) PO SCH (22:03)
[2018-09-14] MEDS: chlordiazePOXIDE HCL 25 MG CAPSULE PO SCH ×4 (05:14→22:21)
[2018-09-14] MEDS: BUPRENORPHINE/NALOXONE 8 MG/2 MG FILM PACKET SL SCH ×3 (05:14→22:18)
[2018-09-14] MEDS: CEPHALEXIN MONOHYDRATE 250 MG CAPSULE (FP) PO SCH ×4 (06:22→23:00)
--- NOTE | 2018-09-14 09:34 | CONSULT ---
[facility] Psychiatric Consult - Data Date of interview: 09/14/18 Admission source: [facility] Identifying data: Patient is a 49 year old male, father of two, unemployed, domiciled, and is supported by [employer]. This is one of multiple admissions for patient. Patient admitted to for alcohol, cocaine, and opiate dependence. Substance Abuse History: Substance & Tx. History. Hx Alcohol Use: Yes. Hx Substance Use: Yes. Substance Use Type: Alcohol, Cocaine, Heroin. Hx Substance Use Treatment: Yes (Detox [facility] 07/14/18 - 07/18/18). - Substances Abused. Alcohol. Route: Oral. Frequency: Daily. Amount used: 1 pt. vodka , 1 six beer (12 oz cans). Age of first use: 20. Date of Last Use: 09/13/18. Cocaine. Route: Injection. Frequency: 3-6 times per week. Amount used: 2 bags. Age of first use: 18. Date of Last Use: 09/13/18. Heroin. Route: Injection. Frequency: 3-6 times per week. Amount used: 2 bags. Age of first use: 23. Date of Last Use: 09/13/18 Medical History: Anemia, Asthma, HIV, Hep C (treated), Seizures (related to alcohol withdrawal, 2018) Psychiatric History: Patient denies h/o psychiatric hospitalizations, suicide attempt and outpatient care. As per previous entries patient has received outpatient care in the past and was treated with zoloft +buspar. He has also received trazodone for insomnia while in detox/rehab settings. At present, patient presents as lethargic and refuses to accept psychotropic medications. Physical/Sexual Abuse/Trauma History: denies. Mental Status Exam - Mental Status Exam Alert and Oriented to: Time, Place, Person Cognitive Function: Good Patient Appearance: Well Groomed Mood: Withdrawn Patient Behavior: Fatigued Speech Pattern: Delayed Voice Loudness: Moderately Soft/Quiet Thought Process: Intact, Goal Oriented Thought Disorder: Not Present Hallucinations: Denies Suicidal Ideation: Denies Homicidal Ideation: Denies Insight/Judgement: Poor Sleep: Fair Appetite: Fair Muscle strength/Tone: Normal Gait/Station: Normal Psychiatric Findings - Problem List ([place] 1, 2,3) (1) Alcohol dependence with uncomplicated withdrawal Current Visit: Yes Status: Acute (2) Cannabis dependence Current Visit: Yes Status: Acute (3) Nicotine dependence Current Visit: Yes Status: Acute Qualifiers: Nicotine product type: cigarettes Substance use status: in withdrawal Qualified Code(s): F17.213 - Nicotine dependence, cigarettes, with withdrawal (4) Cocaine dependence Current Visit: Yes Status: Chronic Qualifiers: Substance use status: uncomplicated Qualified Code(s): F14.20 - Cocaine dependence, uncomplicated (5) Opioid dependence on agonist therapy Current Visit: Yes Status: Chronic Comment: on Suboxone 8 mg TID (6) Substance induced mood disorder Current Visit: Yes Status: Acute - Initial Treatment Plan Initial Treatment Plan: Psychoeducation provided. Detoxification in progress. Observation.
[2018-09-14 09:46] LABS: HEMATOCRIT 35.1 % (35.4-49); MCH 28.7 pg (25.7-33.7); MCHC 34.3 g/dl (32.0-35.9); MEAN CELL VOLUME 83.6 fl (80-96); MEAN PLT VOLUME 8.3 fl (7.5-11.1); PLATELET COUNT 217 K/MM3 (134-434); RDW 14.2 % (11.9-15.9); WHITE BLOOD COUNT 4.7 K/mm3 (4.0-10.0)
[2018-09-14 09:50] LABS: ALBUMIN 3.8 g/dl (3.4-5.0); ALK PHOS 107 U/L (45-117); ANION GAP 6 MMOL/L (8-16); BILIRUBIN,TOTAL 0.3 mg/dL (0.2-1); BLOOD UREA NITROGEN 8 mg/dL (7-18); CHLORIDE 106 mmol/L (98-107); CO2 27 mmol/L (21-32); CREATININE 0.7 mg/dL (0.55-1.3); GLUCOSE,RANDOM 105 mg/dL (74-106); POTASSIUM 4.1 mmol/L (3.5-5.1); SGOT/AST 16 U/L (15-37); SGPT/ALT 20 U/L (13-61); SODIUM 139 mmol/L (136-145); TOT PROT 6.9 g/dl (6.4-8.2)
[2018-09-14] MEDS ORDERED: FLU VACCINE QUAD 60 MCG/0.5 ML (MDV 18-19) IM ONE (10:00)
[2018-09-14] MEDS: NICOTINE 21 MG/24 HOURS TOPICAL PATCH TD SCH (10:08)
[2018-09-14] MEDS: PRENATAL VITAMINS W/ FOLIC ACID TABLET (FP) PO SCH (10:08)
[2018-09-14] MEDS: BACITRACIN 0.9 GM PACKET TP SCH ×2 (10:08→22:18)
[2018-09-14] MEDS: ENALAPRIL MALEATE 10 MG TABLET (FP) PO SCH (10:09)
--- NOTE | 2018-09-14 16:19 | PN ---
S CIWA - CIWA Score Nausea/Vomitin Muscle Tremors: 3 Anxiety: 2 Agitation: 0-Normal Activity Paroxysmal Sweats: 3 Orientation: 0-Oriented Tacttile Disturbances: 2-Mild Itch/Numbness/Burn Auditory Disturbances: 0-None Visual Disturbances: 2-Mild Sensitivity Headache: 0-None Present CIWA-Ar Total Score: 15 BHS Progress Note (SOAP) Subjective: Interrupted Sleep, Sweating, Tremors, Nausea. Objective: PATIENT A & O X 3, OBSERVED AMBULATING ON UNIT. IN NO ACUTE DISTRESS. 09/14/18 16:17 Vital Signs Temperature 97.7 F 09/14/18 13:38 Pulse Rate 78 09/14/18 13:38 Respiratory Rate 18 09/14/18 13:38 Blood Pressure 116/68 09/14/18 13:38 O2 Sat by Pulse Oximetry (%) Laboratory Tests 09/14/18 09/14/18 09/14/18 07:40 07:40 07:40 WBC 4.7 RBC 4.20 Hgb 12.0 Hct 35.1 L MCV 83.6 MCH 28.7 MCHC 34.3 RDW 14.2 Plt Count 217 MPV 8.3 Sodium 139 Potassium 4.1 Chloride 106 Carbon Dioxide 27 Anion Gap 6 L BUN 8 Creatinine 0.7 Creat Clearance w eGFR 121.41 Random Glucose 105 Calcium 9.0 Total Bilirubin 0.3 AST 16 ALT 20 Alkaline Phosphatase 107 Total Protein 6.9 Albumin 3.8 RPR Titer Nonreactive LABS NOTED. Assessment: 09/14/18 16:18 WITHDRAWAL SYMPTOMS. Plan: CONTINUE DETOX. INCREASE DAILY PO FLUID INTAKE.
[2018-09-14] MEDS: THIAMINE HCL 100 MG TABLET (FP) PO SCH (22:17)
[2018-09-14] MEDS: BISMUTH SUBSALICYLATE 524 MG/30 ML UD PO PRN (22:20)
[2018-09-15] MEDS: chlordiazePOXIDE HCL 25 MG CAPSULE PO SCH ×2 (05:13→10:15)
[2018-09-15] MEDS: BUPRENORPHINE/NALOXONE 8 MG/2 MG FILM PACKET SL SCH ×3 (05:14→22:54)
[2018-09-15] MEDS: CEPHALEXIN MONOHYDRATE 250 MG CAPSULE (FP) PO SCH ×3 (05:14→21:33)
[2018-09-15] MEDS: ENALAPRIL MALEATE 10 MG TABLET (FP) PO SCH (10:15)
[2018-09-15] MEDS: BACITRACIN 0.9 GM PACKET TP SCH ×2 (10:15→22:54)
[2018-09-15] MEDS: PRENATAL VITAMINS W/ FOLIC ACID TABLET (FP) PO SCH (10:15)
[2018-09-15] MEDS: NICOTINE 21 MG/24 HOURS TOPICAL PATCH TD SCH (10:16)
[2018-09-15] MEDS: chlordiazePOXIDE HCL 10 MG CAPSULE PO SCH ×2 (12:19→21:32)
--- NOTE | 2018-09-15 13:40 | PN ---
S CIWA - CIWA Score Nausea/Vomitin-No Nausea/No Vomiting Muscle Tremors: 3 Anxiety: 2 Agitation: 1-Slight > Activity Paroxysmal Sweats: 3 Orientation: 0-Oriented Tacttile Disturbances: 1-Very Mild Itch/Numbness Auditory Disturbances: 0-None Visual Disturbances: 1-Very Mild Sensitivity Headache: 0-None Present CIWA-Ar Total Score: 11 BHS Progress Note (SOAP) Subjective: Sweating, Tremors. Objective: PATIENT A & O X 3, OBSERVED AMBULATING ON UNIT. IN NO ACUTE DISTRESS. 09/15/18 13:38 Vital Signs Temperature 97.9 F 09/15/18 09:09 Pulse Rate 78 09/15/18 09:09 Respiratory Rate 18 09/15/18 09:09 Blood Pressure 120/81 09/15/18 09:09 O2 Sat by Pulse Oximetry (%) Laboratory Tests 09/14/18 09/14/18 09/14/18 07:40 07:40 07:40 WBC 4.7 RBC 4.20 Hgb 12.0 Hct 35.1 L MCV 83.6 MCH 28.7 MCHC 34.3 RDW 14.2 Plt Count 217 MPV 8.3 Sodium 139 Potassium 4.1 Chloride 106 Carbon Dioxide 27 Anion Gap 6 L BUN 8 Creatinine 0.7 Creat Clearance w eGFR 121.41 Random Glucose 105 Calcium 9.0 Total Bilirubin 0.3 AST 16 ALT 20 Alkaline Phosphatase 107 Total Protein 6.9 Albumin 3.8 RPR Titer Nonreactive LABS NOTED. Assessment: 09/15/18 13:39 WITHDRAWAL SYMPTOMS. Plan: CONTINUE DETOX. PATIENT REPORTS THAT HE IS TOLERATING CURRENT WITHDRAWAL / DETOX SYMPTOMS WELL. AT PATIENT'S REQUEST, CURRENT DETOX MEDICATION REGIMEN (LIBRIUM) MODIFIED SO THAT PATIENT MAY BE DISCHARGED TOMORROW, 09/16/2018.
[2018-09-15] MEDS: BISMUTH SUBSALICYLATE 524 MG/30 ML UD PO PRN (15:08)
[2018-09-15] MEDS: THIAMINE HCL 100 MG TABLET (FP) PO SCH (22:53)
[2018-09-15] MEDS: MELATONIN 5 MG TABLETS PO PRN (22:55)
[2018-09-15] MEDS ORDERED: chlordiazePOXIDE HCL 10 MG CAPSULE PO PRN (23:00)
[2018-09-15] MEDS ORDERED: chlordiazePOXIDE HCL 10 MG CAPSULE PO SCH (23:00)
[2018-09-16] MEDS: chlordiazePOXIDE HCL 10 MG CAPSULE PO SCH ×3 (00:32→06:08)
[2018-09-16] MEDS: BUPRENORPHINE/NALOXONE 8 MG/2 MG FILM PACKET SL SCH (05:05)
[2018-09-16 09:14] VITALS: BP 133/84; PULSE 78; TEMP 96.2
--- NOTE | 2018-09-16 09:35 | DS ---
[facility] Detox Discharge Summary Admission Date: 09/13/18 Discharge Date: 09/16/18 - History Present History: Alcohol Dependence Additional Comments: 48 years old male admitted on 09/13/18 for alcohol withdrawal stabilization completed alcohol detox regimen aftercare [facility] patient preferred return to his infectious disease specialist and continue in suboxone maintenance treatment program Pertinent Past History: keep medication list in wallet bring in medication list and bottle of medication to aftercare appointment update medication list when change of medication medication adherence - Physical Exam Results Vital Signs: Vital Signs Temperature 96.2 F L 09/16/18 08:40 Pulse Rate 78 09/16/18 08:40 Respiratory Rate 20 09/16/18 08:40 Blood Pressure 133/84 09/16/18 08:40 O2 Sat by Pulse Oximetry (%) Pertinent Admission Physical Exam Findings: alcohol withdrawal sx Laboratory Last Values WBC 4.7 K/mm3 (4.0-10.0) 09/14/18 07:40 RBC 4.20 M/mm3 (4.00-5.60) 09/14/18 07:40 Hgb 12.0 GM/dL (11.7-16.9) 09/14/18 07:40 Hct 35.1 % (35.4-49) L 09/14/18 07:40 MCV 83.6 fl (80-96) 09/14/18 07:40 MCH 28.7 pg (25.7-33.7) 09/14/18 07:40 MCHC 34.3 g/dl (32.0-35.9) 09/14/18 07:40 RDW 14.2 % (11.9-15.9) 09/14/18 07:40 Plt Count 217 K/MM3 (134-434) 09/14/18 07:40 MPV 8.3 fl (7.5-11.1) 09/14/18 07:40 Sodium 139 mmol/L (136-145) 09/14/18 07:40 Potassium 4.1 mmol/L (3.5-5.1) 09/14/18 07:40 Chloride 106 mmol/L (98-107) 09/14/18 07:40 Carbon Dioxide 27 mmol/L (21-32) 09/14/18 07:40 Anion Gap 6 MMOL/L (8-16) L 09/14/18 07:40 BUN 8 mg/dL (7-18) 09/14/18 07:40 Creatinine 0.7 mg/dL (0.55-1.3) 09/14/18 07:40 Creat Clearance w eGFR 121.41 (>60) 09/14/18 07:40 Random Glucose 105 mg/dL (74-106) 09/14/18 07:40 Calcium 9.0 mg/dL (8.5-10.1) 09/14/18 07:40 Total Bilirubin 0.3 mg/dL (0.2-1) 09/14/18 07:40 AST 16 U/L (15-37) 09/14/18 07:40 ALT 20 U/L (13-61) 09/14/18 07:40 Alkaline Phosphatase 107 U/L (45-117) 09/14/18 07:40 Total Protein 6.9 g/dl (6.4-8.2) 09/14/18 07:40 Albumin 3.8 g/dl (3.4-5.0) 09/14/18 07:40 RPR Titer Nonreactive (NONREACTIVE) 09/14/18 07:40 lab noted bring in lab report to aftercare infectious disease specialist and suboxone provider - Treatment Hospital Course: Detox Protocol Followed, Detoxed Safely, Responded well, Discharged Condition Good, Rehab Referral Accepted Patient has Accepted a Rehab Referral to: suboxone and infectious disease provider - Medication Discharge Medications: Ambulatory Orders Emtricita/Rilpivirine/Tenof Df [Complera Tablet] 1 each PO DAILY 05/04/15 Albuterol Sulfate Inhaler - [Ventolin HFA Inhaler -] 2 inh IH Q4H PRN #1 inhaler 07/18/18 Enalapril Maleate [Vasotec] 20 mg PO DAILY #14 tablet 07/18/18 Cephalexin [Keflex] 250 mg PO Q6H 5 Days #20 capsule 09/15/18 - Diagnosis (1) Alcohol dependence with uncomplicated withdrawal Current Visit: Yes Status: Acute (2) Nicotine dependence Current Visit: Yes Status: Acute Qualifiers: Nicotine product type: cigarettes Substance use status: in withdrawal Qualified Code(s): F17.213 - Nicotine dependence, cigarettes, with withdrawal (3) Weight loss Current Visit: Yes Status: Acute (4) HIV (human immunodeficiency virus infection) Current Visit: Yes Status: Chronic Qualifiers: HIV symptom status: unspecified Qualified Code(s): B20 - Human immunodeficiency virus [HIV] disease (5) HTN (hypertension), benign Current Visit: Yes Status: Chronic (6) Hepatitis C Current Visit: Yes Status: Chronic Qualifiers: Viral hepatitis chronicity: unspecified Hepatic coma status: without hepatic coma Qualified Code(s): B19.20 - Unspecified viral hepatitis C without hepatic coma (7) Asthma Current Visit: Yes Status: Chronic Qualifiers: Asthma severity: unspecified severity Asthma persistence: unspecified Asthma complication type: uncomplicated Qualified Code(s): J45.909 - Unspecified asthma, uncomplicated (8) Encounter for monitoring Suboxone maintenance therapy Current Visit: Yes Status: Chronic - AMA Did Patient Leave Against Medical Advice: No
[2018-09-16] MEDS ORDERED: chlordiazePOXIDE HCL 10 MG CAPSULE PO SCH (23:00)
== END 2018-09-16 09:00 | disposition home or self-care (01) | DRG 773 ==
LOC: YASAS 12:52 → Y3N 16:29
PROVIDERS: ADMIT Surgery; ATTEND Surgery
PROC: HZ2ZZZZ Detoxification Services for Substance Abuse Treatment (ICD-10-PCS; principal; 2018-09-13)
DX: F10.230 Alcohol dependence with withdrawal, uncomplicated (principal); F11.20 Opioid dependence, uncomplicated; F14.20 Cocaine dependence, uncomplicated; F12.20 Cannabis dependence, uncomplicated; F17.210 Nicotine dependence, cigarettes, uncomplicated; F19.24 Other psychoactive substance dependence with psychoactive substance-induced mood disorder; I10 Essential (primary) hypertension; Z21 Asymptomatic human immunodeficiency virus [HIV] infection status; R63.4 Abnormal weight loss; Z68.21 Body mass index [BMI] 21.0-21.9, adult; B19.20 Unspecified viral hepatitis C without hepatic coma; J45.909 Unspecified asthma, uncomplicated; D64.9 Anemia, unspecified; L03.113 Cellulitis of right upper limb; Z86.69 Personal history of other diseases of the nervous system and sense organs
CPT/HCPCS: 36415; 80053; 85027; 86593

== ENCOUNTER 2018-11-19 11:42 | Inpatient (IN) | payer OTHER ==
[2018-11-19 13:33] VITALS: BMI 22.2
--- NOTE | 2018-11-19 14:57 | HP ---
CIWA Score Nausea/Vomitin-Mild Nausea/No Vomiting Muscle Tremors: 3 Anxiety: 2 Agitation: 2 Paroxysmal Sweats: 2 Orientation: 0-Oriented Tacttile Disturbances: 0-None Auditory Disturbances: 0-None Visual Disturbances: 0-None Headache: 2-Mild CIWA-Ar Total Score: 12 - Admission Criteria OASAS Guidelines: Admission for Medically Managed Detox: Requires at least one of the followin. CIWA greater than 12 2. Seizures within the past 24 hours 3. Delirium tremens within the past 24 hours 4. Hallucinations within the past 24 hours 5. Acute intervention needed for co occurring medical disorder 6. Acute intervention needed for co occurring psychiatric disorder 7. Severe withdrawal that cannot be handled at a lower level of care (continued vomiting, continued diarrhea, abnormal vital signs) requiring intravenous medication and/or fluids 8. Patient presents the following: CIWA greater than 12 Admission Criteria Met: Admission criteria met Admission ROS [facility] Chief Complaint: here for alcohol detox, on Suboxone MAT and using IV heroin 48 yo with h/o HIV HCV- cured, active IV cocaine/heroin use here for alcohol detox. Was last here 2 months back- and pt relapsed with drug use. 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 HIV f/u at [facility]. On complera- last use this morning, CD4- 700, VL does not know. Suboxone 8mg/2mg Heroin: 1-2 bags/day along with cocaine, no h/o OD, [facility] has narcan kit at home alcohol- 1pint vodka, no h/o seizures, no DT's cocaine- 1-2 grams/day THC- daily. 3-4 per day DUR: monthly prescritpions of suboxone #90, picked up on 11/17/18 pt has opiates in urine- will start alcohol detox today and consider restart Suboxone tomorrow or next day when opiates are disappearing from urine. Will treat for cellulitis- of thigh: warm and roped veins Allergies/Adverse Reactions: Allergies Allergy/AdvReac Type Severity Reaction Status Date / Time No Known Allergies Allergy Verified 11/19/18 13:24 - Ebola screening Have you traveled outside of the country in the last 21 days: No (N) Have you had contact with anyone from an Ebola affected area: No Do you have a fever: No Patient History - Patient Medical History Hx Anemia: Yes (VIT B) Hx Asthma: Yes Hx Chronic Obstructive Pulmonary Disease (COPD): No Hx Cancer: No Hx Cardiac Disorders: No Hx Congestive Heart Failure: No Hx Hypertension: No Hx Hypercholesterolemia: No Hx Pacemaker: No HX Cerebrovascular Accident: No Hx Seizures: No Hx Dementia: No Hx Diabetes: No Hx Gastrointestinal Disorders: No Hx Liver Disease: No Hx Genitourinary Disorders: No Hx Sexually Transmitted Disorders: No Hx Renal Disease (ESRD): No Hx Thyroid Disease: No Hx Human Immunodeficiency Virus (HIV): Yes (2011-COMPLERA, tx at [facility] SINCE 2009) Hx Hepatitis C: Yes (TX'ED) Hx Depression: Yes Hx Suicide Attempt: No Hx Bipolar Disorder: No Hx Schizophrenia: No - Patient Surgical History Past Surgical History: No Hx Neurologic Surgery: No Hx Cataract Extraction: No Hx Cardiac Surgery: No Hx Lung Surgery: No Hx Breast Surgery: No Hx Breast Biopsy: No Hx Abdominal Surgery: No Hx Appendectomy: No Hx Cholecystectomy: No Hx Genitourinary Surgery: No Hx Section: No Hx Orthopedic Surgery: No Anesthesia Reaction: No - PPD History Date: 09/15/18 Results: 0 mm - Smoking Cessation Smoking history: Current every day smoker Have you smoked in the past 12 months: Yes Aproximately how many cigarettes per day: 20 Cigars Per Day: 0 Hx Chewing Tobacco Use: No Initiated information on smoking cessation: Yes 'Breaking Loose' booklet given: 11/19/18 - Substances abused Alcohol Substance route: Oral Frequency: Daily Amount used: 1 pint, 6 pack beer daily Age of first use: 17 Date of last use: 11/19/18 Heroin Substance route: Injection Frequency: 3-6 times per week Amount used: $3-4 bags Age of first use: 23 Date of last use: 11/19/18 Cocaine Substance route: Injection Frequency: 3-6 times per week Amount used: $20 Age of first use: 19 Date of last use: 11/19/18 Family Disease History - Family Disease History Family Disease History: Other: Father (DEPENDENT ON ETOH AND DRUGS AND ), Mother (ALZHIEMERS) Admission Physical Exam BHS - Vital Signs Vital Signs: Vital Signs - 24 hr 11/19/18 11/19/18 13:21 14:27 Temperature 99.4 F 99.4 F Pulse Rate 104 H 104 H Respiratory 18 18 Rate Blood Pressure 106/56 L 106/56 L - Physical General Appearance: Yes: Within Normal Limits HEENTM: Yes: Within Normal Limits, Normal ENT Inspection, Normocephalic, Normal Voice, OSITO, Pharynx Normal Respiratory: Yes: Within Normal Limits, Lungs Clear Neck: Yes: Other (track adkins yue neck, with local erythema) Cardiology: Yes: Within Normal Limits, Regular Rate Abdominal: Yes: Within Normal Limits, Non Tender, Flat Back: Yes: Within Normal Limits Musculoskeletal: Yes: Within Normal Limits, Gait Steady Extremities: Yes: Other (IVDA of thigh veins: yue thigh streaky redness, warm to touch, firm, palpable veins) Neurological: Yes: Within Normal Limits, coach tour driver II-XII NML intact, Fully Oriented, Alert Integumentary: Yes: Erythema, Track Adkins (IVDA neck veins- bilateral, subclavain, yue thigh veins- red, warm to touch, slightly painful) Lymphatic: Yes: Tenderness - Diagnostic (1) Cellulitis Current Visit: Yes Status: Acute (2) AIDS Current Visit: No Status: Chronic (3) Alcohol dependence Current Visit: No Status: Chronic Qualifiers: Substance use status: uncomplicated Qualified Code(s): F10.20 - Alcohol dependence, uncomplicated (4) Asthma Current Visit: No Status: Chronic Qualifiers: Asthma severity: unspecified severity Asthma persistence: unspecified Asthma complication type: uncomplicated Qualified Code(s): J45.909 - Unspecified asthma, uncomplicated (5) Cocaine dependence Current Visit: No Status: Chronic Qualifiers: Substance use status: uncomplicated Qualified Code(s): F14.20 - Cocaine dependence, uncomplicated (6) Encounter for monitoring Suboxone maintenance therapy Current Visit: No Status: Chronic (7) Opioid dependence on agonist therapy Current Visit: No Status: Chronic Comment: on Suboxone 8 mg TID Cleared for Admission S - Detox or Rehab S Level of Care: Medically Managed Breathalyzer - Breathalyzer Breathalyzer: 0 Urine Drug Screen - Test Device Lot number: [id number] Expiration date: 08/02/20 - Control Is test valid?: Yes - Results Drug screen NEGATIVE: No Urine drug screen results: THC-Marijuana, ARNAUD-Cocaine, FEN-Fentanyl, MOP-Opiates , OXY-Oxycodone, BUP-Suboxone Inpatient Rehab Admission - Rehab Decision to Admit Inpatient rehab admission?: No
[2018-11-19] MEDS ORDERED: METHOCARBAMOL 500 MG TABLET PO PRN (15:13)
[2018-11-19] MEDS ORDERED: NICOTINE POLACRILEX 4 MG GUM BUC PRN (15:13)
[2018-11-19] MEDS ORDERED: BISMUTH SUBSALICYLATE 262 MG/15 ML BTL PO PRN (15:13)
[2018-11-19] MEDS ORDERED: MAGNESIUM HYDROX 2400MG/30ML ORAL SUSPENSION 30 ML CUP PO PRN (15:13)
[2018-11-19] MEDS ORDERED: MAG HYDROX/AL HYDROX/SIMETH 30 ML UNIT-DOSE CUP PO PRN (15:13)
[2018-11-19] MEDS ORDERED: hydrOXYzine PAMOATE 25 MG CAPSULE (FP) PO PRN (15:13)
[2018-11-19] MEDS ORDERED: MENTHOL/PHENOL 1 EACH UD MM PRN (15:13)
[2018-11-19] MEDS ORDERED: DICYCLOMINE HCL 10 MG CAPSULE PO PRN (15:13)
[2018-11-19] MEDS ORDERED: ONDANSETRON *ODT* 4 MG TABLET SL PRN (15:13)
[2018-11-19] MEDS ORDERED: IBUPROFEN 400 MG TABLET (FP) PO PRN (15:13)
[2018-11-19] MEDS ORDERED: chlordiazePOXIDE HCL 25 MG CAPSULE PO PRN (15:13)
[2018-11-19] MEDS ORDERED: ACETAMINOPHEN 325 MG TABLET (FP) PO PRN ×2 (15:13)
[2018-11-19] MEDS ORDERED: MAGNESIUM CITRATE 300 ML BOTTLE PO PRN (15:13)
[2018-11-19] MEDS ORDERED: ALBUTEROL SO4 8 GM HFA INHALER IH PRN (15:16)
[2018-11-19] MEDS ORDERED: cloNIDine HCL 0.1 MG TABLET PO PRN (15:16)
[2018-11-19] MEDS ORDERED: chlordiazePOXIDE HCL 25 MG CAPSULE PO ONE (15:50)
[2018-11-19] MEDS: AMOX TR/POT CLAV 875MG/125MG TABLETS (FP) PO SCH (17:01)
[2018-11-19 18:20] LABS: HEMATOCRIT 31.3 % (35.4-49); HEMOGLOBIN 10.1 GM/dL (11.7-16.9); MCH 26.2 pg (25.7-33.7); MCHC 32.3 g/dl (32.0-35.9); MEAN PLT VOLUME 7.8 fl (7.5-11.1); PLATELET COUNT 275 K/MM3 (134-434); RBC 3.86 M/mm3 (4.00-5.60); RDW 14.6 % (11.9-15.9); WHITE BLOOD COUNT 9.8 K/mm3 (4.0-10.0)
[2018-11-19 18:28] LABS: ALBUMIN 3.6 g/dl (3.4-5.0); BILIRUBIN,TOTAL 0.4 mg/dL (0.2-1); CALCIUM 8.7 mg/dL (8.5-10.1); CREATININE 0.9 mg/dL (0.55-1.3); TOT PROT 7.1 g/dl (6.4-8.2)
[2018-11-19] MEDS: THIAMINE HCL 100 MG TABLET (FP) PO SCH (22:04)
[2018-11-19] MEDS: chlordiazePOXIDE HCL 25 MG CAPSULE PO SCH (22:04)
[2018-11-19] MEDS: MELATONIN 5 MG TABLETS PO PRN (22:04)
[2018-11-19 23:12] LABS: EPI CELLS 0.7 /HPF (0-5/HPF); HYALINE CASTS 0 /lpf (0-8); PH,URINE 6.5 (5.0-8.0); URINE APPEARANCE CLOUDY; URINE BACTERIA 0.7 /hpf (NEGATIVE); URINE BILIRUBIN NEGATIVE (NEGATIVE); URINE COLOR YELLOW; URINE GLUCOSE (UA) NEGATIVE (NEGATIVE); URINE KETONE NEGATIVE (NEGATIVE); URINE LEUK ESTERASE NEGATIVE (NEGATIVE); URINE NITRITE NEGATIVE (NEGATIVE); URINE PROTEIN 1+ (NEGATIVE); URINE WBC 1 /hpf (0-5)
[2018-11-19 23:37] LABS: URINE CRYSTALS CALCIO OXALATE 3+ /hpf; URINE RBC 17.7 /hpf (0-4)
[2018-11-20] MEDS: chlordiazePOXIDE HCL 25 MG CAPSULE PO SCH ×4 (05:52→22:01)
[2018-11-20] MEDS: AMOX TR/POT CLAV 875MG/125MG TABLETS (FP) PO SCH ×2 (07:09→16:41)
--- NOTE | 2018-11-20 10:12 | PN ---
[facility] CIWA - CIWA Score Nausea/Vomitin-Mild Nausea/No Vomiting Muscle Tremors: 3 Anxiety: 2 Agitation: 3 Paroxysmal Sweats: 1-Minimal Palms Moist Orientation: 0-Oriented Tacttile Disturbances: 0-None Auditory Disturbances: 0-None Visual Disturbances: 0-None Headache: 1-Very Mild CIWA-Ar Total Score: 11 S Progress Note (SOAP) Subjective: patient reported that he is taking suboxone 8-2 mg sl tid functional tester typewriters call [id number] verified that patient last filled 30 days supply on 11/16 order suboxone 8-2 mg tid sl first dose 1400 Objective: 11/20/18 10:15 Laboratory Last Values WBC 9.8 K/mm3 (4.0-10.0) 11/19/18 15:28 RBC 3.86 M/mm3 (4.00-5.60) L 11/19/18 15:28 Hgb 10.1 GM/dL (11.7-16.9) L 11/19/18 15:28 Hct 31.3 % (35.4-49) L 11/19/18 15:28 MCV 81.0 fl (80-96) 11/19/18 15:28 MCH 26.2 pg (25.7-33.7) 11/19/18 15:28 MCHC 32.3 g/dl (32.0-35.9) 11/19/18 15:28 RDW 14.6 % (11.9-15.9) 11/19/18 15:28 Plt Count 275 K/MM3 (134-434) D 11/19/18 15:28 MPV 7.8 fl (7.5-11.1) 11/19/18 15:28 Sodium 137 mmol/L (136-145) 11/19/18 15:28 Potassium 4.0 mmol/L (3.5-5.1) 11/19/18 15:28 Chloride 102 mmol/L (98-107) 11/19/18 15:28 Carbon Dioxide 31 mmol/L (21-32) 11/19/18 15:28 Anion Gap 4 MMOL/L (8-16) L 11/19/18 15:28 BUN 11 mg/dL (7-18) 11/19/18 15:28 Creatinine 0.9 mg/dL (0.55-1.3) 11/19/18 15:28 Est GFR (CKD-EPI)AfAm 118.30 11/19/18 15:28 Est GFR (CKD-EPI)NonAf 102.07 11/19/18 15:28 Random Glucose 97 mg/dL (74-106) 11/19/18 15:28 Calcium 8.7 mg/dL (8.5-10.1) 11/19/18 15:28 Total Bilirubin 0.4 mg/dL (0.2-1) 11/19/18 15:28 AST 27 U/L (15-37) 11/19/18 15:28 ALT 26 U/L (13-61) 11/19/18 15:28 Alkaline Phosphatase 119 U/L (45-117) H 11/19/18 15:28 Total Protein 7.1 g/dl (6.4-8.2) 11/19/18 15:28 Albumin 3.6 g/dl (3.4-5.0) 11/19/18 15:28 Urine Color Yellow 11/19/18 23:00 Urine Appearance Cloudy 11/19/18 23:00 Urine pH 6.5 (5.0-8.0) 11/19/18 23:00 Ur Specific [place] 1.022 (1.010-1.035) 11/19/18 23:00 Urine Protein 1+ (NEGATIVE) H 11/19/18 23:00 Urine Glucose (UA) Negative (NEGATIVE) 11/19/18 23:00 Urine Ketones Negative (NEGATIVE) 11/19/18 23:00 Urine Blood Negative (NEGATIVE) 11/19/18 23:00 Urine Nitrite Negative (NEGATIVE) 11/19/18 23:00 Urine Bilirubin Negative (NEGATIVE) 11/19/18 23:00 Urine Urobilinogen 1.0 mg/dL (0.2-1.0) 11/19/18 23:00 Ur Leukocyte Esterase Negative (NEGATIVE) 11/19/18 23:00 Urine WBC (Auto) 1 /hpf (0-5) 11/19/18 23:00 Urine RBC (Auto) 17.7 /hpf (0-4) 11/19/18 23:00 Urine Casts (Auto) 0 /lpf (0-8) 11/19/18 23:00 U Epithel Cells (Auto) 0.7 /HPF (0-5/HPF) 11/19/18 23:00 Urine Crystals (Auto) Calcio oxalate 3+ /hpf 11/19/18 23:00 Urine Bacteria (Auto) 0.7 /hpf (NEGATIVE) 11/19/18 23:00 RPR Titer Nonreactive (NONREACTIVE) 11/19/18 15:28 lab noted repeat ua Assessment: 11/20/18 10:18 alcohol withdrawal sx suboxone maintenance Plan: continue detox
[2018-11-20] MEDS: PRENATAL VITAMINS W/ FOLIC ACID TABLET (FP) PO SCH (10:26)
[2018-11-20] MEDS: NICOTINE 21 MG/24 HOURS TOPICAL PATCH TD SCH (10:27)
[2018-11-20] MEDS: EMTRICITAB/RILPIVIRINE/TENOFOV 1 EACH TABLET PO SCH (10:27)
[2018-11-20] MEDS: BUPRENORPHINE/NALOXONE 8 MG/2 MG FILM PACKET SL SCH ×2 (13:46→22:01)
[2018-11-20] MEDS: THIAMINE HCL 100 MG TABLET (FP) PO SCH (22:01)
[2018-11-20] MEDS: MELATONIN 5 MG TABLETS PO PRN (22:02)
[2018-11-21] MEDS: chlordiazePOXIDE HCL 25 MG CAPSULE PO SCH ×3 (05:33→17:12)
[2018-11-21] MEDS: BUPRENORPHINE/NALOXONE 8 MG/2 MG FILM PACKET SL SCH ×3 (05:33→22:01)
[2018-11-21] MEDS: AMOX TR/POT CLAV 875MG/125MG TABLETS (FP) PO SCH ×2 (07:25→17:12)
[2018-11-21] MEDS: PRENATAL VITAMINS W/ FOLIC ACID TABLET (FP) PO SCH (10:31)
[2018-11-21] MEDS: EMTRICITAB/RILPIVIRINE/TENOFOV 1 EACH TABLET PO SCH (10:31)
[2018-11-21] MEDS: NICOTINE 21 MG/24 HOURS TOPICAL PATCH TD SCH (10:31)
--- NOTE | 2018-11-21 11:44 | PN ---
S CIWA - CIWA Score Nausea/Vomitin-Mild Nausea/No Vomiting Muscle Tremors: 2 Anxiety: 2 Agitation: 2 Paroxysmal Sweats: 1-Minimal Palms Moist Orientation: 0-Oriented Tacttile Disturbances: 0-None Auditory Disturbances: 0-None Visual Disturbances: 0-None Headache: 1-Very Mild CIWA-Ar Total Score: 9 S Progress Note (SOAP) Subjective: feeling better today tolerate food and fluid well today Objective: 11/21/18 11:43 Vital Signs Temperature 98.8 F 11/21/18 09:20 Pulse Rate 93 H 11/21/18 09:20 Respiratory Rate 18 11/21/18 09:20 Blood Pressure 149/81 11/21/18 09:20 O2 Sat by Pulse Oximetry (%) Laboratory Last Values WBC 9.8 K/mm3 (4.0-10.0) 11/19/18 15:28 RBC 3.86 M/mm3 (4.00-5.60) L 11/19/18 15:28 Hgb 10.1 GM/dL (11.7-16.9) L 11/19/18 15:28 Hct 31.3 % (35.4-49) L 11/19/18 15:28 MCV 81.0 fl (80-96) 11/19/18 15:28 MCH 26.2 pg (25.7-33.7) 11/19/18 15:28 MCHC 32.3 g/dl (32.0-35.9) 11/19/18 15:28 RDW 14.6 % (11.9-15.9) 11/19/18 15:28 Plt Count 275 K/MM3 (134-434) D 11/19/18 15:28 MPV 7.8 fl (7.5-11.1) 11/19/18 15:28 Sodium 137 mmol/L (136-145) 11/19/18 15:28 Potassium 4.0 mmol/L (3.5-5.1) 11/19/18 15:28 Chloride 102 mmol/L (98-107) 11/19/18 15:28 Carbon Dioxide 31 mmol/L (21-32) 11/19/18 15:28 Anion Gap 4 MMOL/L (8-16) L 11/19/18 15:28 BUN 11 mg/dL (7-18) 11/19/18 15:28 Creatinine 0.9 mg/dL (0.55-1.3) 11/19/18 15:28 Est GFR (CKD-EPI)AfAm 118.30 11/19/18 15:28 Est GFR (CKD-EPI)NonAf 102.07 11/19/18 15:28 Random Glucose 97 mg/dL (74-106) 11/19/18 15: Calcium 8.7 mg/dL (8.5-10.1) 11/19/18 15:28 Total Bilirubin 0.4 mg/dL (0.2-1) 11/19/18 15:28 AST 27 U/L (15-37) 11/19/18 15:28 ALT 26 U/L (13-61) 11/19/18 15: Alkaline Phosphatase 119 U/L (45-117) H 11/19/18 15:28 Total Protein 7.1 g/dl (6.4-8.2) 11/19/18 15:28 Albumin 3.6 g/dl (3.4-5.0) 11/19/18 15:28 Urine Color Yellow 11/19/18 23:00 Urine Appearance Cloudy 11/19/18 23:00 Urine pH 6.5 (5.0-8.0) 11/19/18 23:00 Ur Specific [place] 1.022 (1.010-1.035) 11/19/18 23:00 Urine Protein 1+ (NEGATIVE) H 11/19/18 23:00 Urine Glucose (UA) Negative (NEGATIVE) 11/19/18 23:00 Urine Ketones Negative (NEGATIVE) 11/19/18 23:00 Urine Blood Negative (NEGATIVE) 11/19/18 23:00 Urine Nitrite Negative (NEGATIVE) 11/19/18 23:00 Urine Bilirubin Negative (NEGATIVE) 11/19/18 23:00 Urine Urobilinogen 1.0 mg/dL (0.2-1.0) 11/19/18 23:00 Ur Leukocyte Esterase Negative (NEGATIVE) 11/19/18 23:00 Urine WBC (Auto) 1 /hpf (0-5) 11/19/18 23:00 Urine RBC (Auto) 17.7 /hpf (0-4) 11/19/18 23:00 Urine Casts (Auto) 0 /lpf (0-8) 11/19/18 23:00 U Epithel Cells (Auto) 0.7 /HPF (0-5/HPF) 11/19/18 23:00 Urine Crystals (Auto) Calcio oxalate 3+ /hpf 11/19/18 23:00 Urine Bacteria (Auto) 0.7 /hpf (NEGATIVE) 11/19/18 23:00 RPR Titer Nonreactive (NONREACTIVE) 11/19/18 15:28 lab noted Assessment: 11/21/18 11:44 withdrawal sx Plan: continue detox
[2018-11-21] MEDS: THIAMINE HCL 100 MG TABLET (FP) PO SCH (22:01)
[2018-11-21] MEDS: chlordiazePOXIDE HCL 10 MG CAPSULE PO SCH (22:01)
[2018-11-21] MEDS: MELATONIN 5 MG TABLETS PO PRN (22:01)
[2018-11-21] MEDS ORDERED: chlordiazePOXIDE HCL 10 MG CAPSULE PO PRN (23:00)
[2018-11-22] MEDS: chlordiazePOXIDE HCL 10 MG CAPSULE PO SCH (05:28)
[2018-11-22] MEDS: BUPRENORPHINE/NALOXONE 8 MG/2 MG FILM PACKET SL SCH (05:29)
[2018-11-22 06:39] VITALS: BP 148/86; PULSE 80; TEMP 98.5
[2018-11-22] MEDS: AMOX TR/POT CLAV 875MG/125MG TABLETS (FP) PO SCH (07:47)
--- NOTE | 2018-11-22 15:54 | DS ---
[facility] Detox Discharge Summary Admission Date: 11/19/18 Discharge Date: 11/22/18 - History Present History: Alcohol Dependence Additional Comments: 48 years old male admitted on 11/19/18 for alcohol withdrawal stabilization feeling better today agrees to return to suboxone program for medial and mental issues alert no acute distress denies suicidal ideation Pertinent Past History: bring in medication list and lab report to suboxone program - Physical Exam Results Vital Signs: Vital Signs Temperature 98.5 F 11/22/18 06:00 Pulse Rate 80 11/22/18 06:00 Respiratory Rate 18 11/22/18 06:30 Blood Pressure 148/86 11/22/18 06:00 O2 Sat by Pulse Oximetry (%) Pertinent Admission Physical Exam Findings: alcohol withdrawal sx Laboratory Last Values WBC 9.8 K/mm3 (4.0-10.0) 11/19/18 15:28 RBC 3.86 M/mm3 (4.00-5.60) L 11/19/18 15:28 Hgb 10.1 GM/dL (11.7-16.9) L 11/19/18 15:28 Hct 31.3 % (35.4-49) L 11/19/18 15:28 MCV 81.0 fl (80-96) 11/19/18 15:28 MCH 26.2 pg (25.7-33.7) 11/19/18 15:28 MCHC 32.3 g/dl (32.0-35.9) 11/19/18 15:28 RDW 14.6 % (11.9-15.9) 11/19/18 15:28 Plt Count 275 K/MM3 (134-434) D 11/19/18 15:28 MPV 7.8 fl (7.5-11.1) 11/19/18 15:28 Sodium 137 mmol/L (136-145) 11/19/18 15:28 Potassium 4.0 mmol/L (3.5-5.1) 11/19/18 15:28 Chloride 102 mmol/L (98-107) 11/19/18 15:28 Carbon Dioxide 31 mmol/L (21-32) 11/19/18 15:28 Anion Gap 4 MMOL/L (8-16) L 11/19/18 15:28 BUN 11 mg/dL (7-18) 11/19/18 15:28 Creatinine 0.9 mg/dL (0.55-1.3) 11/19/18 15: Est GFR (CKD-EPI)AfAm 118.30 11/19/18 15: Est GFR (CKD-EPI)NonAf 102.07 11/19/18 15: Random Glucose 97 mg/dL (74-106) 11/19/18 15: Calcium 8.7 mg/dL (8.5-10.1) 11/19/18: Total Bilirubin 0.4 mg/dL (0.2-1) 11/19/18 15: AST 27 U/L (15-37) 11/19/18: ALT 26 U/L (13-61) 11/19/18: Alkaline Phosphatase 119 U/L (45-117) H 11/19/18 15: Total Protein 7.1 g/dl (6.4-8.2) 11/19/18: Albumin 3.6 g/dl (3.4-5.0) 11/19/18: Urine Color Yellow 11/19/18 23:00 Urine Appearance Cloudy 11/19/18 23:00 Urine pH 6.5 (5.0-8.0) 11/19/18 23:00 Ur Specific [place] 1.022 (1.010-1.035) 11/19/18 23:00 Urine Protein 1+ (NEGATIVE) H 11/19/18 23:00 Urine Glucose (UA) Negative (NEGATIVE) 11/19/18 23:00 Urine Ketones Negative (NEGATIVE) 11/19/18 23:00 Urine Blood Negative (NEGATIVE) 11/19/18 23:00 Urine Nitrite Negative (NEGATIVE) 11/19/18 23:00 Urine Bilirubin Negative (NEGATIVE) 11/19/18 23:00 Urine Urobilinogen 1.0 mg/dL (0.2-1.0) 11/19/18 23:00 Ur Leukocyte Esterase Negative (NEGATIVE) 11/19/18 23:00 Urine WBC (Auto) 1 /hpf (0-5) 11/19/18 23:00 Urine RBC (Auto) 17.7 /hpf (0-4) 11/19/18 23:00 Urine Casts (Auto) 0 /lpf (0-8) 11/19/18 23:00 U Epithel Cells (Auto) 0.7 /HPF (0-5/HPF) 11/19/18 23:00 Urine Crystals (Auto) Calcio oxalate 3+ /hpf 11/19/18 23:00 Urine Bacteria (Auto) 0.7 /hpf (NEGATIVE) 11/19/18 23:00 RPR Titer Nonreactive (NONREACTIVE) 11/19/18 15:28 lab noted - Treatment Hospital Course: Detox Protocol Followed, Detoxed Safely, Responded well, Discharged Condition Good, Rehab Referral Accepted Patient has Accepted a Rehab Referral to: suboxone maintenance program - Medication Discharge Medications: Ambulatory Orders Emtricita/Rilpivirine/Tenof Df [Complera Tablet] 1 each PO DAILY 05/04/15 Albuterol Sulfate Inhaler - [Ventolin HFA Inhaler -] 2 inh IH Q4H PRN #1 inhaler 07/18/18 Enalapril Maleate [Vasotec] 20 mg PO DAILY #14 tablet 07/18/18 Buprenorphine/Naloxone [Suboxone 8Mg/2Mg Sl Film -] 3 each SL DAILY 11/19/18 - Diagnosis (1) Alcohol dependence with uncomplicated withdrawal Status: Acute (2) Nicotine dependence Status: Acute Qualifiers: Nicotine product type: cigarettes Substance use status: in withdrawal Qualified Code(s): F17.213 - Nicotine dependence, cigarettes, with withdrawal (3) Substance induced mood disorder Status: Suspected (4) Weight loss Status: Acute (5) Asthma Status: Chronic Qualifiers: Asthma severity: unspecified severity Asthma persistence: unspecified Asthma complication type: uncomplicated Qualified Code(s): J45.909 - Unspecified asthma, uncomplicated (6) Encounter for monitoring Suboxone maintenance therapy Status: Chronic (7) HTN (hypertension), benign Status: Chronic (8) Hepatitis C Status: Chronic Qualifiers: Viral hepatitis chronicity: unspecified Hepatic coma status: without hepatic coma Qualified Code(s): B19.20 - Unspecified viral hepatitis C without hepatic coma (9) Substance induced mood disorder Status: Suspected - AMA Did Patient Leave Against Medical Advice: No
[2018-11-22] MEDS ORDERED: chlordiazePOXIDE HCL 10 MG CAPSULE PO SCH (23:00)
== END 2018-11-22 09:21 | disposition home or self-care (01) | DRG 773 ==
LOC: YASAS 11:42 → Y3N 15:43
PROVIDERS: ADMIT Surgery; ATTEND Surgery
PROC: HZ2ZZZZ Detoxification Services for Substance Abuse Treatment (ICD-10-PCS; principal; 2018-11-19)
DX: F10.230 Alcohol dependence with withdrawal, uncomplicated (principal); F11.20 Opioid dependence, uncomplicated; F14.20 Cocaine dependence, uncomplicated; F17.213 Nicotine dependence, cigarettes, with withdrawal; F19.20 Other psychoactive substance dependence, uncomplicated; B20 Human immunodeficiency virus [HIV] disease; I10 Essential (primary) hypertension; B19.20 Unspecified viral hepatitis C without hepatic coma; L03.119 Cellulitis of unspecified part of limb; L03.116 Cellulitis of left lower limb; Z51.81 Encounter for therapeutic drug level monitoring
CPT/HCPCS: 36415; 80053; 81003; 85027; 86593

== ENCOUNTER 2019-01-12 11:37 | Inpatient (IN) | payer OTHER ==
[2019-01-12 14:42] VITALS: BMI 21.4
--- NOTE | 2019-01-12 15:55 | HP ---
COWS - Scale Anxiety or Irritability: 2=Irritable/Anxious CIWA Score Nausea/Vomitin Muscle Tremors: 3 Anxiety: 2 Agitation: 2 Paroxysmal Sweats: 2 Orientation: 0-Oriented Tacttile Disturbances: 1-Very Mild Itch/Numbness Auditory Disturbances: 1-Very Mild Visual Disturbances: 1-Very Mild Sensitivity Headache: 1-Very Mild CIWA-Ar Total Score: 16 - Admission Criteria OASAS Guidelines: Admission for Medically Managed Detox: Requires at least one of the followin. CIWA greater than 12 2. Seizures within the past 24 hours 3. Delirium tremens within the past 24 hours 4. Hallucinations within the past 24 hours 5. Acute intervention needed for co occurring medical disorder 6. Acute intervention needed for co occurring psychiatric disorder 7. Severe withdrawal that cannot be handled at a lower level of care (continued vomiting, continued diarrhea, abnormal vital signs) requiring intravenous medication and/or fluids 8. Patient presents the following: CIWA greater than 12 Admission Criteria Met: Admission criteria met Admission ROS [facility] Chief Complaint: I want to stop drinking Allergies/Adverse Reactions: Allergies Allergy/AdvReac Type Severity Reaction Status Date / Time No Known Allergies Allergy Verified 01/12/19 14:33 History of Present Illness: Patient is a 48 year old man who presents for alcohol detox. He was here in October of last month. He reports remote h/o blackouts and alcohol related seizures. He remains on Suboxone maintenance 8mg TID. ( verified with pharmacy- [facility] ) Patient is HIV+, on complera, reports compliance with regimen. Exam Limitations: No Limitations - Ebola screening Have you traveled outside of the country in the last 21 days: No (N) Have you had contact with anyone from an Ebola affected area: No Have you been sick,other than usual withdrawal symptoms: No Do you have a fever: No - Review of Systems Constitutional: Chills, Loss of Appetite, Changes in sleep, Unintentional Wgt. Loss EENT: reports: Blurred Vision, Recent change in vision, Nose Congestion Respiratory: reports: No Symptoms reported, SOB with Exertion Cardiac: reports: No Symptoms Reported GI: reports: Nausea, Poor Appetite, Poor Fluid Intake, Abdominal cramping : reports: No Symptoms Reported Musculoskeletal: reports: Back Pain, Joint Pain, Muscle Pain, Muscle Weakness Integumentary: reports: No Symptoms Reported Neuro: reports: Headache, Numbness, Tremors Endocrine: reports: No Symptoms Reported Hematology: reports: Anemia Psychiatric: reports: No Sypmtoms Reported Other Systems: Reviewed and Negative Patient History - Patient Medical History Hx Anemia: Yes (VIT B) Hx Asthma: Yes Hx Chronic Obstructive Pulmonary Disease (COPD): No Hx Cancer: No Hx Cardiac Disorders: No Hx Congestive Heart Failure: No Hx Hypertension: Yes Hx Hypercholesterolemia: No Hx Pacemaker: No HX Cerebrovascular Accident: No Hx Seizures: No Hx Dementia: No Hx Diabetes: No Hx Gastrointestinal Disorders: No Hx Liver Disease: No Hx Genitourinary Disorders: No Hx Sexually Transmitted Disorders: Yes Hx Renal Disease (ESRD): No Hx Thyroid Disease: No Hx Human Immunodeficiency Virus (HIV): Yes (2011-COMPLE) Hx Hepatitis C: Yes (TX'ED) Hx Depression: No Hx Suicide Attempt: No Hx Bipolar Disorder: No Hx Schizophrenia: No - Patient Surgical History Past Surgical History: No - PPD History Previous Implant?: Yes Documented Results: Negative w/proof Implanted On Prior [facility] Admission?: Yes Date: 09/15/18 Results: 0 mm PPD to be Administered?: No - Smoking Cessation Smoking history: Current every day smoker Have you smoked in the past 12 months: Yes Aproximately how many cigarettes per day: 20 Cigars Per Day: 0 Hx Chewing Tobacco Use: No Initiated information on smoking cessation: Yes 'Breaking Loose' booklet given: 01/12/19 - Substances abused Alcohol Substance route: Oral Frequency: Daily Amount used: 1 pint Vodka, 12 pack beer daily Age of first use: 17 Date of last use: 01/12/19 Heroin Substance route: Injection Frequency: 3-6 times per week Amount used: $3-4 bags Age of first use: 23 Date of last use: 11/19/18 Cocaine Substance route: Injection Frequency: 3-6 times per week Amount used: $20 Age of first use: 20 Date of last use: 01/10/19 Family Disease History - Family Disease History Family Disease History: Other: Father (DEPENDENT ON ETOH AND DRUGS AND ), Mother (ALZHIEMERS) Admission Physical Exam [facility] - Vital Signs Vital Signs: Vital Signs - 24 hr 01/12/19 14:36 Temperature 97.5 F L Pulse Rate 69 Respiratory 18 Rate Blood Pressure 102/66 - Physical General Appearance: Yes: No Apparent Distress HEENTM: Yes: Hearing grossly Normal, Normal ENT Inspection, Normocephalic, Normal Voice, OSITO, Pharynx Normal, Tm's normal Respiratory: Yes: Chest Non-Tender, Lungs Clear, Normal Breath Sounds, No Respiratory Distress, No Accessory Muscle Use Neck: Yes: No masses,lesions,Nodules, Supple Breast: Yes: Breast Exam Deferred Cardiology: Yes: Regular Rhythm, Regular Rate, S1, S2 Abdominal: Yes: Normal Bowel Sounds, Non Tender Genitourinary: Yes: Within Normal Limits Back: Yes: Normal Inspection Musculoskeletal: Yes: full range of Motion, Gait Steady, Pelvis Stable Extremities: Yes: Normal Capillary Refill, Normal Range of Motion, Non-Tender, Tremors 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, Fully Oriented, Alert, Normal Mood/ Affect, Normal Response Integumentary: Yes: Clammy, Other (scratches) Lymphatic: Yes: Within Normal Limits - Diagnostic (1) Alcohol dependence with uncomplicated withdrawal Current Visit: No Status: Acute (2) Nicotine dependence Current Visit: No Status: Acute Qualifiers: Nicotine product type: cigarettes Substance use status: uncomplicated Qualified Code(s): F17.210 - Nicotine dependence, cigarettes, uncomplicated (3) Encounter for monitoring Suboxone maintenance therapy Current Visit: No Status: Chronic (4) HIV (human immunodeficiency virus infection) Current Visit: No Status: Chronic Qualifiers: HIV symptom status: asymptomatic Qualified Code(s): Z21 - Asymptomatic human immunodeficiency virus [HIV] infection status (5) HTN (hypertension), benign Current Visit: No Status: Chronic (6) Hepatitis C Current Visit: No Status: Chronic Qualifiers: Viral hepatitis chronicity: chronic Hepatic coma status: without hepatic coma Qualified Code(s): B18.2 - Chronic viral hepatitis C Comment: TREATED AND UNDETECTABLE PER PATIENT. Cleared for Admission S - Detox or Rehab [facility] Level of Care: Medically Managed Detox Regimen/Protocol: Librium Claeared for Rehab Admission: No Breathalyzer - Breathalyzer Breathalyzer: 0 Urine Drug Screen - Test Device Lot number: [id number] Expiration date: 10/30/20 - Control Is test valid?: Yes - Results Drug screen NEGATIVE: No Urine drug screen results: THC-Marijuana, BUP-Suboxone Inpatient Rehab Admission - Rehab Decision to Admit Inpatient rehab admission?: No
[2019-01-12] MEDS ORDERED: hydrOXYzine PAMOATE 25 MG CAPSULE (FP) PO PRN (15:59)
[2019-01-12] MEDS ORDERED: MAGNESIUM HYDROX 2400MG/30ML ORAL SUSPENSION 30 ML CUP PO PRN (15:59)
[2019-01-12] MEDS ORDERED: ACETAMINOPHEN 325 MG TABLET (FP) PO PRN ×2 (15:59)
[2019-01-12] MEDS ORDERED: METHOCARBAMOL 500 MG TABLET PO PRN (15:59)
[2019-01-12] MEDS ORDERED: chlordiazePOXIDE HCL 25 MG CAPSULE PO ONE (15:59)
[2019-01-12] MEDS ORDERED: MAG HYDROX/AL HYDROX/SIMETH 30 ML UNIT-DOSE CUP PO PRN (15:59)
[2019-01-12] MEDS ORDERED: BISMUTH SUBSALICYLATE 524 MG/30 ML UD PO PRN (15:59)
[2019-01-12] MEDS ORDERED: MAGNESIUM CITRATE 300 ML BOTTLE PO PRN (15:59)
[2019-01-12] MEDS ORDERED: chlordiazePOXIDE HCL 10 MG CAPSULE PO PRN (15:59)
[2019-01-12] MEDS ORDERED: IBUPROFEN 400 MG TABLET (FP) PO PRN (15:59)
[2019-01-12] MEDS ORDERED: MENTHOL/PHENOL 1 EACH UD MM PRN (15:59)
[2019-01-12] MEDS ORDERED: ALBUTEROL SO4 8 GM HFA INHALER IH PRN (16:06)
[2019-01-12] MEDS: MELATONIN 5 MG TABLETS PO PRN (20:59)
[2019-01-12] MEDS: chlordiazePOXIDE HCL 25 MG CAPSULE PO SCH (20:59)
[2019-01-12] MEDS: THIAMINE HCL 100 MG TABLET (FP) PO SCH (20:59)
[2019-01-13] MEDS: chlordiazePOXIDE HCL 25 MG CAPSULE PO SCH ×3 (05:23→22:40)
[2019-01-13] MEDS ORDERED: BUPRENORPHINE/NALOXONE 8 MG/2 MG FILM PACKET SL SCH (10:00)
[2019-01-13 10:13] LABS: ALBUMIN 3.6 g/dl (3.4-5.0); BILIRUBIN,TOTAL 0.7 mg/dL (0.2-1); BLOOD UREA NITROGEN 7.4 mg/dL (7-18); CALCIUM 8.8 mg/dL (8.5-10.1); CREATININE 0.6 mg/dL (0.55-1.3); POTASSIUM 4.2 mmol/L (3.5-5.1); TOT PROT 7.3 g/dl (6.4-8.2)
--- NOTE | 2019-01-13 10:24 | PN ---
[facility] CIWA - CIWA Score Nausea/Vomitin-Mild Nausea/No Vomiting Muscle Tremors: 4-Moderate,w/Arms Extend Anxiety: 3 Agitation: 4-Moderately Restless Paroxysmal Sweats: 1-Minimal Palms Moist Orientation: 1-Uncertain about Date Tacttile Disturbances: 1-Very Mild Itch/Numbness Auditory Disturbances: 0-None Visual Disturbances: 0-None Headache: 0-None Present CIWA-Ar Total Score: 15 S Progress Note (SOAP) Subjective: 48 years old male admitted on 01/12/19 for alcohol withdrawal sx medical history of hiv hepatitis c and weight loss begin ensure 120 ml bid suboxone 24-6 mg po daily last filled 30 days supply 01/10/19 feeling better since suboxone began Objective: 01/13/19 10:30 Vital Signs Temperature 96 F L 01/13/19 09:26 Pulse Rate 77 01/13/19 09:26 Respiratory Rate 20 01/13/19 09:26 Blood Pressure 119/63 01/13/19 09:26 O2 Sat by Pulse Oximetry (%) Laboratory Last Values Sodium 140 mmol/L (136-145) 01/13/19 07:50 Potassium 4.2 mmol/L (3.5-5.1) 01/13/19 07:50 Chloride 106 mmol/L (98-107) 01/13/19 07:50 Carbon Dioxide 28 mmol/L (21-32) 01/13/19 07:50 Anion Gap 6 MMOL/L (8-16) L 01/13/19 07:50 BUN 7.4 mg/dL (7-18) 01/13/19 07:50 Creatinine 0.6 mg/dL (0.55-1.3) 01/13/19 07:50 Est GFR (CKD-EPI)AfAm 139.75 01/13/19 07:50 Est GFR (CKD-EPI)NonAf 120.58 01/13/19 07:50 Random Glucose 99 mg/dL (74-106) 01/13/19 07:50 Calcium 8.8 mg/dL (8.5-10.1) 01/13/19 07:50 Total Bilirubin 0.7 mg/dL (0.2-1) 01/13/19 07:50 AST 19 U/L (15-37) 01/13/19 07:50 ALT 19 U/L (13-61) 01/13/19 07:50 Alkaline Phosphatase 96 U/L (45-117) 01/13/19 07:50 Total Protein 7.3 g/dl (6.4-8.2) 01/13/19 07:50 Albumin 3.6 g/dl (3.4-5.0) 01/13/19 07:50 lab noted Assessment: 01/13/19 10:30 alcohol withdrawal sx Plan: continue alcohol detox
[2019-01-13 10:28] LABS: HEMATOCRIT 33.7 % (35.4-49); MCHC 32.6 g/dl (32.0-35.9); MEAN CELL VOLUME 79.6 fl (80-96); MEAN PLT VOLUME 8.2 fl (7.5-11.1); RBC 4.24 M/mm3 (4.00-5.60); RDW 14.9 % (11.9-15.9); WHITE BLOOD COUNT 4.9 K/mm3 (4.0-10.0)
[2019-01-13] MEDS: PRENATAL VITAMINS W/ FOLIC ACID TABLET (FP) PO SCH (10:29)
[2019-01-13 10:45] LABS: PLATELET COUNT 254 K/MM3 (134-434)
[2019-01-13] MEDS: EMTRICITAB/RILPIVIRINE/TENOFOV 1 EACH TABLET PO SCH (11:09)
[2019-01-13] MEDS: NICOTINE 21 MG/24 HOURS TOPICAL PATCH TD SCH (13:55)
[2019-01-13] MEDS: THIAMINE HCL 100 MG TABLET (FP) PO SCH (22:40)
[2019-01-13] MEDS: MELATONIN 5 MG TABLETS PO PRN (22:41)
[2019-01-14] MEDS: chlordiazePOXIDE 5 MG CAPSULE PO SCH ×3 (05:22→22:19)
[2019-01-14] MEDS: BUPRENORPHINE/NALOXONE 8 MG/2 MG FILM PACKET SL SCH ×3 (05:22→22:19)
--- NOTE | 2019-01-14 09:59 | PN ---
S CIWA - CIWA Score Nausea/Vomitin-Mild Nausea/No Vomiting Muscle Tremors: 3 Anxiety: 2 Agitation: 2 Paroxysmal Sweats: 1-Minimal Palms Moist Orientation: 1-Uncertain about Date Tacttile Disturbances: 1-Very Mild Itch/Numbness Auditory Disturbances: 0-None Visual Disturbances: 0-None Headache: 2-Mild CIWA-Ar Total Score: 13 S Progress Note (SOAP) Subjective: feeling better today ambulating with cane prefers to go to rehab 1-2 weeks that "I have to provide food for my family" Objective: 01/14/19 09:58 Vital Signs Temperature 98.3 F 01/14/19 09:13 Pulse Rate 89 01/14/19 09:13 Respiratory Rate 18 01/14/19 09:13 Blood Pressure 146/83 01/14/19 09:13 O2 Sat by Pulse Oximetry (%) Laboratory Last Values WBC 4.9 K/mm3 (4.0-10.0) 01/13/19 07:50 RBC 4.24 M/mm3 (4.00-5.60) 01/13/19 07:50 Hgb 11.0 GM/dL (11.7-16.9) L 01/13/19 07:50 Hct 33.7 % (35.4-49) L 01/13/19 07:50 MCV 79.6 fl (80-96) L 01/13/19 07:50 MCH 26.0 pg (25.7-33.7) 01/13/19 07:50 MCHC 32.6 g/dl (32.0-35.9) 01/13/19 07:50 RDW 14.9 % (11.9-15.9) 01/13/19 07:50 Plt Count 254 K/MM3 (134-434) 01/13/19 07:50 MPV 8.2 fl (7.5-11.1) 01/13/19 07:50 Sodium 140 mmol/L (136-145) 01/13/19 07:50 Potassium 4.2 mmol/L (3.5-5.1) 01/13/19 07:50 Chloride 106 mmol/L (98-107) 01/13/19 07:50 Carbon Dioxide 28 mmol/L (21-32) 01/13/19 07:50 Anion Gap 6 MMOL/L (8-16) L 01/13/19 07:50 BUN 7.4 mg/dL (7-18) 01/13/19 07:50 Creatinine 0.6 mg/dL (0.55-1.3) 01/13/19 07:50 Est GFR (CKD-EPI)AfAm 139.75 01/13/19 07:50 Est GFR (CKD-EPI)NonAf 120.58 01/13/19 07:50 Random Glucose 99 mg/dL (74-106) 01/13/19 07:50 Calcium 8.8 mg/dL (8.5-10.1) 01/13/19 07:50 Total Bilirubin 0.7 mg/dL (0.2-1) 01/13/19 07:50 AST 19 U/L (15-37) 01/13/19 07:50 ALT 19 U/L (13-61) 01/13/19 07:50 Alkaline Phosphatase 96 U/L (45-117) 01/13/19 07:50 Total Protein 7.3 g/dl (6.4-8.2) 01/13/19 07:50 Albumin 3.6 g/dl (3.4-5.0) 01/13/19 07:50 RPR Titer Nonreactive (NONREACTIVE) 01/13/19 07:50 lab noted 01/14/19 10:01 resume home med enalapril Assessment: 01/14/19 10:01 alcohol withdrawal sx hypertension Plan: continue alcohol detox enalapril 10 mg po daily
[2019-01-14] MEDS: EMTRICITAB/RILPIVIRINE/TENOFOV 1 EACH TABLET PO SCH (10:33)
[2019-01-14] MEDS: NICOTINE 21 MG/24 HOURS TOPICAL PATCH TD SCH (10:33)
[2019-01-14] MEDS: PRENATAL VITAMINS W/ FOLIC ACID TABLET (FP) PO SCH (10:33)
[2019-01-14] MEDS: ENALAPRIL MALEATE 10 MG TABLET (FP) PO SCH (10:33)
[2019-01-14] MEDS: THIAMINE HCL 100 MG TABLET (FP) PO SCH (22:18)
[2019-01-14] MEDS: MELATONIN 5 MG TABLETS PO PRN (22:19)
[2019-01-15] MEDS ORDERED: chlordiazePOXIDE HCL 10 MG CAPSULE PO PRN
[2019-01-15] MEDS: BUPRENORPHINE/NALOXONE 8 MG/2 MG FILM PACKET SL SCH ×2 (05:52→14:09)
[2019-01-15] MEDS: chlordiazePOXIDE HCL 10 MG CAPSULE PO SCH ×2 (05:52→14:09)
[2019-01-15] MEDS ORDERED: EMTRICITAB/RILPIVIRINE/TENOFOV 1 EACH TABLET PO SCH (08:00)
[2019-01-15] MEDS: PRENATAL VITAMINS W/ FOLIC ACID TABLET (FP) PO SCH (10:32)
[2019-01-15] MEDS: NICOTINE 21 MG/24 HOURS TOPICAL PATCH TD SCH (10:32)
[2019-01-15] MEDS: ENALAPRIL MALEATE 10 MG TABLET (FP) PO SCH (10:33)
--- NOTE | 2019-01-15 11:44 | PN ---
S CIWA - CIWA Score Nausea/Vomitin-Mild Nausea/No Vomiting Muscle Tremors: 2 Anxiety: 2 Agitation: 3 Paroxysmal Sweats: 1-Minimal Palms Moist Orientation: 0-Oriented Tacttile Disturbances: 1-Very Mild Itch/Numbness Auditory Disturbances: 0-None Visual Disturbances: 0-None Headache: 0-None Present CIWA-Ar Total Score: 10 [facility] Progress Note (SOAP) Subjective: feeling better today and looking forward to go home spending time with family that "complany gives me two weeks" patient prefers to return to his infectious disease epecialist for hypertension management patient agrees to return to suboxone program for opiate misuse treatment Objective: 01/15/19 11:44 Vital Signs Temperature 98.2 F 01/15/19 09:15 Pulse Rate 69 01/15/19 09:15 Respiratory Rate 18 01/15/19 09:15 Blood Pressure 148/89 01/15/19 09:15 O2 Sat by Pulse Oximetry (%) Laboratory Last Values WBC 4.9 K/mm3 (4.0-10.0) 01/13/19 07:50 RBC 4.24 M/mm3 (4.00-5.60) 01/13/19 07:50 Hgb 11.0 GM/dL (11.7-16.9) L 01/13/19 07:50 Hct 33.7 % (35.4-49) L 01/13/19 07:50 MCV 79.6 fl (80-96) L 01/13/19 07:50 MCH 26.0 pg (25.7-33.7) 01/13/19 07:50 MCHC 32.6 g/dl (32.0-35.9) 01/13/19 07:50 RDW 14.9 % (11.9-15.9) 01/13/19 07:50 Plt Count 254 K/MM3 (134-434) 01/13/19 07:50 MPV 8.2 fl (7.5-11.1) 01/13/19 07:50 Sodium 140 mmol/L (136-145) 01/13/19 07:50 Potassium 4.2 mmol/L (3.5-5.1) 01/13/19 07:50 Chloride 106 mmol/L (98-107) 01/13/19 07:50 Carbon Dioxide 28 mmol/L (21-32) 01/13/19 07:50 Anion Gap 6 MMOL/L (8-16) L 01/13/19 07:50 BUN 7.4 mg/dL (7-18) 01/13/19 07:50 Creatinine 0.6 mg/dL (0.55-1.3) 01/13/19 07:50 Est GFR (CKD-EPI)AfAm 139.75 01/13/19 07:50 Est GFR (CKD-EPI)NonAf 120.58 01/13/19 07:50 Random Glucose 99 mg/dL (74-106) 01/13/19 07:50 Calcium 8.8 mg/dL (8.5-10.1) 01/13/19 07:50 Total Bilirubin 0.7 mg/dL (0.2-1) 01/13/19 07:50 AST 19 U/L (15-37) 01/13/19 07:50 ALT 19 U/L (13-61) 01/13/19 07:50 Alkaline Phosphatase 96 U/L (45-117) 01/13/19 07:50 Total Protein 7.3 g/dl (6.4-8.2) 01/13/19 07:50 Albumin 3.6 g/dl (3.4-5.0) 01/13/19 07:50 RPR Titer Nonreactive (NONREACTIVE) 01/13/19 07:50 lab noted Assessment: 01/15/19 11:46 alcohol withdrawal sx Plan: continue alcohol detox
[2019-01-15 13:28] VITALS: BP 102/71; PULSE 68; TEMP 98.1
--- NOTE | 2019-01-15 13:51 | DS ---
[facility] Detox Discharge Summary Admission Date: 01/12/19 Discharge Date: 01/15/19 - History Present History: Alcohol Dependence Additional Comments: 48 years old male admitted on 01/12/19 for alcohol withdrawal sx patient was doing well with librium detox regimen along with suboxone maintenance acceptable lab result medical history of hypertension bp was in good control aftercare community support approach Pertinent Past History: encourage the patient to bring in medication list and lab report to infectious disease specialist for follow up - Physical Exam Results Vital Signs: Vital Signs Temperature 98.1 F 01/15/19 13:27 Pulse Rate 68 01/15/19 13:27 Respiratory Rate 18 01/15/19 13:27 Blood Pressure 102/71 01/15/19 13:27 O2 Sat by Pulse Oximetry (%) Pertinent Admission Physical Exam Findings: alcohol withdrawal sx Laboratory Last Values WBC 4.9 K/mm3 (4.0-10.0) 01/13/19 07:50 RBC 4.24 M/mm3 (4.00-5.60) 01/13/19 07:50 Hgb 11.0 GM/dL (11.7-16.9) L 01/13/19 07:50 Hct 33.7 % (35.4-49) L 01/13/19 07:50 MCV 79.6 fl (80-96) L 01/13/19 07:50 MCH 26.0 pg (25.7-33.7) 01/13/19 07:50 MCHC 32.6 g/dl (32.0-35.9) 01/13/19 07:50 RDW 14.9 % (11.9-15.9) 01/13/19 07:50 Plt Count 254 K/MM3 (134-434) 01/13/19 07:50 MPV 8.2 fl (7.5-11.1) 01/13/19 07:50 Sodium 140 mmol/L (136-145) 01/13/19 07:50 Potassium 4.2 mmol/L (3.5-5.1) 01/13/19 07:50 Chloride 106 mmol/L (98-107) 01/13/19 07:50 Carbon Dioxide 28 mmol/L (21-32) 01/13/19 07:50 Anion Gap 6 MMOL/L (8-16) L 01/13/19 07:50 BUN 7.4 mg/dL (7-18) 01/13/19 07:50 Creatinine 0.6 mg/dL (0.55-1.3) 01/13/19 07:50 Est GFR (CKD-EPI)AfAm 139.75 01/13/19 07:50 Est GFR (CKD-EPI)NonAf 120.58 01/13/19 07:50 Random Glucose 99 mg/dL (74-106) 01/13/19 07:50 Calcium 8.8 mg/dL (8.5-10.1) 01/13/19 07:50 Total Bilirubin 0.7 mg/dL (0.2-1) 01/13/19 07:50 AST 19 U/L (15-37) 01/13/19 07:50 ALT 19 U/L (13-61) 01/13/19 07:50 Alkaline Phosphatase 96 U/L (45-117) 01/13/19 07:50 Total Protein 7.3 g/dl (6.4-8.2) 01/13/19 07:50 Albumin 3.6 g/dl (3.4-5.0) 01/13/19 07:50 RPR Titer Nonreactive (NONREACTIVE) 01/13/19 07:50 lab noted - Treatment Hospital Course: Detox Protocol Followed, Detoxed Safely, Responded well, Discharged Condition Good, Rehab Referral Accepted Patient has Accepted a Rehab Referral to: community support approach - Medication Discharge Medications: Ambulatory Orders Emtricita/Rilpivirine/Tenof Df [Complera Tablet] 1 each PO DAILY 05/04/15 Albuterol Sulfate Inhaler - [Ventolin HFA Inhaler -] 2 inh IH Q4H PRN #1 inhaler 07/18/18 Enalapril Maleate [Vasotec] 20 mg PO DAILY #14 tablet 07/18/18 Buprenorphine/Naloxone [Suboxone 8Mg/2Mg Sl Film -] 3 each SL DAILY 11/19/18 - Diagnosis (1) Alcohol dependence with uncomplicated withdrawal Current Visit: Yes Status: Acute (2) Nicotine dependence Current Visit: Yes Status: Acute Qualifiers: Nicotine product type: cigarettes Substance use status: in withdrawal Qualified Code(s): F17.213 - Nicotine dependence, cigarettes, with withdrawal (3) Substance induced mood disorder Current Visit: Yes Status: Suspected (4) Hepatitis C Current Visit: Yes Status: Chronic Qualifiers: Viral hepatitis chronicity: chronic Hepatic coma status: without hepatic coma Qualified Code(s): B18.2 - Chronic viral hepatitis C (5) HIV (human immunodeficiency virus infection) Current Visit: Yes Status: Chronic Qualifiers: HIV symptom status: asymptomatic Qualified Code(s): Z21 - Asymptomatic human immunodeficiency virus [HIV] infection status (6) Weight loss Current Visit: Yes Status: Acute (7) Asthma Current Visit: Yes Status: Chronic Qualifiers: Asthma severity: mild Asthma persistence: intermittent Asthma complication type: with status asthmaticus Qualified Code(s): J45.22 - Mild intermittent asthma with status asthmaticus (8) Encounter for monitoring Suboxone maintenance therapy Current Visit: Yes Status: Chronic - AMA Did Patient Leave Against Medical Advice: No
[2019-01-16] MEDS ORDERED: chlordiazePOXIDE HCL 10 MG CAPSULE PO ONE (05:00)
== END 2019-01-15 13:55 | disposition home or self-care (01) | DRG 773 ==
LOC: YASAS 11:37 → Y3N 16:50
PROVIDERS: ADMIT Surgery; ATTEND Surgery
PROC: HZ2ZZZZ Detoxification Services for Substance Abuse Treatment (ICD-10-PCS; principal; 2019-01-12)
DX: F10.230 Alcohol dependence with withdrawal, uncomplicated (principal); F11.20 Opioid dependence, uncomplicated; F17.213 Nicotine dependence, cigarettes, with withdrawal; I10 Essential (primary) hypertension; Z21 Asymptomatic human immunodeficiency virus [HIV] infection status; B18.2 Chronic viral hepatitis C; J45.22 Mild intermittent asthma with status asthmaticus
CPT/HCPCS: 36415; 80053; 85027; 86593

== ENCOUNTER 2019-01-21 18:36 | Inpatient (IN) | payer OTHER ==
[2019-01-21 23:25] VITALS: BMI 21.7
[2019-01-22] MEDS ORDERED: ACETAMINOPHEN 325 MG TABLET (FP) PO PRN (00:27)
[2019-01-22] MEDS ORDERED: hydrOXYzine PAMOATE 50 MG CAPSULE (FP) PO PRN (00:27)
[2019-01-22] MEDS ORDERED: guaiFENesin 200 MG/10 ML 10 ML UNIT-DOSE CUPS PO PRN (00:27)
[2019-01-22] MEDS ORDERED: MAGNESIUM CITRATE 300 ML BOTTLE PO PRN (00:27)
[2019-01-22] MEDS ORDERED: MAGNESIUM HYDROX 2400MG/30ML ORAL SUSPENSION 30 ML CUP PO PRN (00:27)
[2019-01-22] MEDS ORDERED: NICOTINE POLACRILEX 2 MG GUM BUC PRN (00:27)
[2019-01-22] MEDS ORDERED: LOPERAMIDE HCL 2 MG CAPSULE PO PRN (00:27)
[2019-01-22] MEDS ORDERED: MENTHOL/PHENOL 1 EACH UD MM PRN (00:27)
[2019-01-22] MEDS ORDERED: P-EPHED 60MG/TRIPROLIDI 2.5MG TABLET PO PRN (00:27)
[2019-01-22] MEDS ORDERED: MAG HYDROX/AL HYDROX/SIMETH 30 ML UNIT-DOSE CUP PO PRN (00:27)
[2019-01-22] MEDS ORDERED: IBUPROFEN 400 MG TABLET (FP) PO PRN (00:27)
--- NOTE | 2019-01-22 00:27 | HP ---
"MITALI BALDERAS Rehab Assess/Revision - Admission History Admitted to Rehab from: [facility] Date of Admission to Rehab: 01/22/2019 - Vital signs Vital Signs: Vital Signs Period Temp Pulse Resp BP Sys/Astudillo Pulse Ox Last 24 Hr 97.8 F 91 16 115/78 - Findings Detox History & Physical reviewed: Yes Concur with findings: Yes Comments/Additional Findings: client dc 01/15/2019. return for rehab. denies alcohol use since dc but does report heroin use 3 days ago. denies s/sx of withdrawal. vss. he is a/ox nad. hx/ hiv, asthma on suboxone mgmt. utox + thc , franchesca, fen, opi, oxy, bzo, bup. Search Terms: abelardo fernandez, 1970 Search Date: 01/22/2019 12:34:43 AM. The Drug Utilization Report below displays all of the controlled substance prescriptions, if any, that your patient has filled in the last twelve months. The information displayed on this report is compiled from pharmacy submissions to the Department, and accurately reflects the information as submitted by the pharmacies. This report was requested by: Dwain Zimmerman | Reference #: [id number]. You have not added a GARRY number. Keeping your GARRY number(s) up to date on the My GARRY Numbers page will enable the separation of your prescriptions from others' in the search results. Others ' Prescriptions. Patient Name:Abelardo FernandezBirth Date:1970. Address:[address] [place] [id number]:Male. Rx WrittenRx DispensedDrugQuantityDays SupplyPrescriber Name. 2018buprenorphine-naloxone 8-2 mg sl [id number] Nuñez MD. buprenorphine-naloxone 8-2 mg sl [id number] Nuñez MD. buprenorphine-naloxone 8-2 mg sl [id number] Doan MD Inpatient Rehab Admission - Rehab Decision to Admit Inpatient rehab admission?: Yes - Initial Determination Are CD services needed?: Yes Free of communicable disease: No Not in need of hospitalization: Yes - Rehab Admission Criteria Previous failed treatment: Yes Poor recovery environment: Yes Comorbidities: Yes Lacks judgement: No Patient is meeting Inpatient Rehab admission criteria:: Yes"
[2019-01-22] MEDS ORDERED: ALBUTEROL SO4 8 GM HFA INHALER IH PRN (00:28)
[2019-01-22] MEDS: BUPRENORPHINE/NALOXONE 8 MG/2 MG FILM PACKET SL SCH ×3 (06:46→21:17)
[2019-01-22] MEDS: NICOTINE 21 MG/24 HOURS TOPICAL PATCH TD SCH (10:12)
[2019-01-22] MEDS: PRENATAL VITAMINS W/ FOLIC ACID TABLET (FP) PO SCH (10:12)
[2019-01-22] MEDS: EMTRICITAB/RILPIVIRINE/TENOFOV 1 EACH TABLET PO SCH (10:52)
[2019-01-22] MEDS: MELATONIN 5 MG TABLETS PO PRN (21:17)
[2019-01-22] MEDS: THIAMINE HCL 100 MG TABLET (FP) PO SCH (22:05)
[2019-01-23] MEDS: BUPRENORPHINE/NALOXONE 8 MG/2 MG FILM PACKET SL SCH ×3 (07:16→21:09)
[2019-01-23] MEDS: EMTRICITAB/RILPIVIRINE/TENOFOV 1 EACH TABLET PO SCH (09:54)
[2019-01-23] MEDS: NICOTINE 21 MG/24 HOURS TOPICAL PATCH TD SCH (09:55)
[2019-01-23] MEDS: PRENATAL VITAMINS W/ FOLIC ACID TABLET (FP) PO SCH (09:55)
[2019-01-23] MEDS: THIAMINE HCL 100 MG TABLET (FP) PO SCH (21:09)
[2019-01-23] MEDS: MELATONIN 5 MG TABLETS PO PRN (21:09)
[2019-01-24] MEDS: BUPRENORPHINE/NALOXONE 8 MG/2 MG FILM PACKET SL SCH ×3 (06:59→21:13)
[2019-01-24] MEDS: NICOTINE 21 MG/24 HOURS TOPICAL PATCH TD SCH (10:03)
[2019-01-24] MEDS: PRENATAL VITAMINS W/ FOLIC ACID TABLET (FP) PO SCH (10:03)
[2019-01-24] MEDS: EMTRICITAB/RILPIVIRINE/TENOFOV 1 EACH TABLET PO SCH (10:03)
[2019-01-24] MEDS: THIAMINE HCL 100 MG TABLET (FP) PO SCH (21:13)
[2019-01-24] MEDS: MELATONIN 5 MG TABLETS PO PRN (21:13)
[2019-01-25] MEDS: BUPRENORPHINE/NALOXONE 8 MG/2 MG FILM PACKET SL SCH ×3 (06:30→21:28)
[2019-01-25] MEDS: COLLOIDAL OATMEAL 1 BAR EACH TP PRN (08:47)
[2019-01-25] MEDS: EMTRICITAB/RILPIVIRINE/TENOFOV 1 EACH TABLET PO SCH (10:06)
[2019-01-25] MEDS: NICOTINE 21 MG/24 HOURS TOPICAL PATCH TD SCH (10:06)
[2019-01-25] MEDS: PRENATAL VITAMINS W/ FOLIC ACID TABLET (FP) PO SCH (10:06)
[2019-01-25] MEDS: MELATONIN 5 MG TABLETS PO PRN (21:28)
[2019-01-25] MEDS: THIAMINE HCL 100 MG TABLET (FP) PO SCH (21:28)
[2019-01-26] MEDS: BUPRENORPHINE/NALOXONE 8 MG/2 MG FILM PACKET SL SCH ×3 (06:18→21:11)
[2019-01-26] MEDS: PRENATAL VITAMINS W/ FOLIC ACID TABLET (FP) PO SCH (09:59)
[2019-01-26] MEDS: EMTRICITAB/RILPIVIRINE/TENOFOV 1 EACH TABLET PO SCH (09:59)
[2019-01-26] MEDS: NICOTINE 21 MG/24 HOURS TOPICAL PATCH TD SCH (10:00)
[2019-01-26] MEDS: MELATONIN 5 MG TABLETS PO PRN (21:11)
[2019-01-26] MEDS: THIAMINE HCL 100 MG TABLET (FP) PO SCH (21:11)
[2019-01-27] MEDS: BUPRENORPHINE/NALOXONE 8 MG/2 MG FILM PACKET SL SCH ×3 (06:30→21:28)
[2019-01-27] MEDS: EMTRICITAB/RILPIVIRINE/TENOFOV 1 EACH TABLET PO SCH (10:12)
[2019-01-27] MEDS: NICOTINE 21 MG/24 HOURS TOPICAL PATCH TD SCH (10:13)
[2019-01-27] MEDS: PRENATAL VITAMINS W/ FOLIC ACID TABLET (FP) PO SCH (10:13)
[2019-01-27] MEDS: MELATONIN 5 MG TABLETS PO PRN (21:28)
[2019-01-27] MEDS: THIAMINE HCL 100 MG TABLET (FP) PO SCH (21:28)
[2019-01-28] MEDS: BUPRENORPHINE/NALOXONE 8 MG/2 MG FILM PACKET SL SCH ×3 (06:35→22:00)
[2019-01-28] MEDS: PRENATAL VITAMINS W/ FOLIC ACID TABLET (FP) PO SCH (10:14)
[2019-01-28] MEDS: NICOTINE 21 MG/24 HOURS TOPICAL PATCH TD SCH (10:15)
[2019-01-28] MEDS: EMTRICITAB/RILPIVIRINE/TENOFOV 1 EACH TABLET PO SCH (10:15)
[2019-01-28] MEDS: MELATONIN 5 MG TABLETS PO PRN (22:01)
[2019-01-28] MEDS: THIAMINE HCL 100 MG TABLET (FP) PO SCH (22:01)
[2019-01-29] MEDS: BUPRENORPHINE/NALOXONE 8 MG/2 MG FILM PACKET SL SCH ×3 (06:42→21:31)
[2019-01-29] MEDS: EMTRICITAB/RILPIVIRINE/TENOFOV 1 EACH TABLET PO SCH (10:21)
[2019-01-29] MEDS: NICOTINE 21 MG/24 HOURS TOPICAL PATCH TD SCH (10:22)
[2019-01-29] MEDS: PRENATAL VITAMINS W/ FOLIC ACID TABLET (FP) PO SCH (10:22)
[2019-01-29] MEDS: THIAMINE HCL 100 MG TABLET (FP) PO SCH (21:31)
[2019-01-29] MEDS: MELATONIN 5 MG TABLETS PO PRN (21:32)
[2019-01-30] MEDS: BUPRENORPHINE/NALOXONE 8 MG/2 MG FILM PACKET SL SCH ×2 (06:27→13:51)
[2019-01-30 06:44] VITALS: BP 136/71; PULSE 81; TEMP 97.8
[2019-01-30] MEDS ORDERED: NICOTINE 14 MG/24 HOURS TOPICAL PATCH TD SCH (10:00)
[2019-01-30] MEDS: EMTRICITAB/RILPIVIRINE/TENOFOV 1 EACH TABLET PO SCH (10:06)
[2019-01-30] MEDS: PRENATAL VITAMINS W/ FOLIC ACID TABLET (FP) PO SCH (10:07)
[2019-01-30] MEDS: COLLOIDAL OATMEAL 1 BAR EACH TP PRN (10:08)
[2019-01-31] MEDS ORDERED: EMTRICITAB/RILPIVIRINE/TENOFOV 1 EACH TABLET PO ONE (07:00)
[2019-01-31] MEDS ORDERED: EMTRICITAB/RILPIVIRINE/TENOFOV 1 EACH TABLET PO SCH (10:00)
== END 2019-01-30 15:45 | disposition home or self-care (01) | DRG 772 ==
LOC: YASAS 18:36 → Y5N 23:55
PROVIDERS: ADMIT Neuromusculoskeletal Medicine & OMM; ATTEND Neuromusculoskeletal Medicine & OMM
PROC: HZ42ZZZ Group Counseling for Substance Abuse Treatment, Cognitive-Behavioral (ICD-10-PCS; principal; 2019-01-21)
DX: F10.20 Alcohol dependence, uncomplicated (principal); F11.20 Opioid dependence, uncomplicated; F17.210 Nicotine dependence, cigarettes, uncomplicated; I10 Essential (primary) hypertension; Z21 Asymptomatic human immunodeficiency virus [HIV] infection status; B18.2 Chronic viral hepatitis C

== ENCOUNTER 2019-07-06 16:58 | Inpatient (IN) | payer OTHER ==
[2019-07-06 18:11] VITALS: BMI 23.6
--- NOTE | 2019-07-06 21:16 | HP ---
CIWA Score Nausea/Vomitin-Mild Nausea/No Vomiting Muscle Tremors: 3 Anxiety: 3 Agitation: 2 Paroxysmal Sweats: 3 Orientation: 0-Oriented Tacttile Disturbances: 2-Mild Itch/Numbness/Burn Auditory Disturbances: 2-Mild Harshness/Frighten Visual Disturbances: 2-Mild Sensitivity Headache: 2-Mild CIWA-Ar Total Score: 20 - Admission Criteria OASAS Guidelines: Admission for Medically Managed Detox: Requires at least one of the followin. CIWA greater than 12 2. Seizures within the past 24 hours 3. Delirium tremens within the past 24 hours 4. Hallucinations within the past 24 hours 5. Acute intervention needed for co occurring medical disorder 6. Acute intervention needed for co occurring psychiatric disorder 7. Severe withdrawal that cannot be handled at a lower level of care (continued vomiting, continued diarrhea, abnormal vital signs) requiring intravenous medication and/or fluids 8. Admitting History and Physical - Admission History Source: Patient Limitations to Obtaining History: No Limitations - Past Medical History Hepatobiliary: Yes: Hepatitis C Infectious Disease: Yes: AIDS - Smoking History Smoking history: Current every day smoker Have you smoked in the past 12 months: Yes Aproximately how many cigarettes per day: 20 - Alcohol/Substance Use Hx Alcohol Use: Yes Admission ROS BHS - HPI Chief Complaint: DEPENDENT ON ETOH, HEROIN AND COCAINE ON SUBOXONE 8 MGS. TID MAINTENANCE PROGRAM FROM PCP - LAST DOSE THIS AM Allergies/Adverse Reactions: Allergies Allergy/AdvReac Type Severity Reaction Status Date / Time No Known Allergies Allergy Verified 07/06/19 18:00 History of Present Illness: THE PT. IS REQUESTING ADMISSION TO THE DETOX UNIT AND CAME FOR MEDICAL CLEARANCE Exam Limitations: No Limitations - Ebola screening Have you traveled outside of the country in the last 21 days: No (N) Have you had contact with anyone from an Ebola affected area: No Do you have a fever: No - Review of Systems Constitutional: See HPI, Malaise, Weakness, Unexplained wgt Loss EENT: reports: See HPI Respiratory: reports: See HPI Cardiac: reports: See HPI GI: reports: See HPI, Nausea, Poor Appetite, Abdominal cramping : reports: No Symptoms Reported, See HPI Musculoskeletal: reports: See HPI, Muscle Pain, Muscle Weakness Integumentary: reports: See HPI, Flushing, Sweating Neuro: reports: See HPI, Headache, Tremors, Weakness Endocrine: reports: See HPI Hematology: reports: See HPI Psychiatric: reports: Judgement Intact, Orientated x3, Anxious Patient History - Patient Medical History Hx Anemia: Yes (VIT B) Hx Asthma: No Hx Chronic Obstructive Pulmonary Disease (COPD): No Hx Cancer: No Hx Cardiac Disorders: No Hx Congestive Heart Failure: No Hx Hypertension: No Hx Hypercholesterolemia: No Hx Pacemaker: No HX Cerebrovascular Accident: No Hx Seizures: No Hx Dementia: No Hx Diabetes: No Hx Gastrointestinal Disorders: No Hx Liver Disease: No Hx Genitourinary Disorders: No Hx Sexually Transmitted Disorders: No Hx Renal Disease (ESRD): No Hx Thyroid Disease: No Hx Human Immunodeficiency Virus (HIV): Yes (2011-) Hx Hepatitis C: Yes (TX'ED) Hx Depression: No Hx Suicide Attempt: No Hx Bipolar Disorder: No Hx Schizophrenia: No - Patient Surgical History Past Surgical History: No Hx Neurologic Surgery: No Hx Cataract Extraction: No Hx Cardiac Surgery: No Hx Lung Surgery: No Hx Breast Surgery: No Hx Breast Biopsy: No Hx Abdominal Surgery: No Hx Appendectomy: No Hx Cholecystectomy: No Hx Genitourinary Surgery: No Hx Section: No Hx Orthopedic Surgery: No Anesthesia Reaction: No - PPD History Date: 09/15/18 Results: 0 mm - Smoking Cessation Smoking history: Current every day smoker Have you smoked in the past 12 months: Yes Aproximately how many cigarettes per day: 20 Cigars Per Day: 0 Hx Chewing Tobacco Use: No Initiated information on smoking cessation: Yes 'Breaking Loose' booklet given: 07/06/19 - Substances abused Alcohol Substance route: Oral Frequency: Daily Amount used: 1 pint Vodka, 12 pack beer daily Age of first use: 17 Date of last use: 07/06/19 Heroin Substance route: Injection Frequency: 1-2 times per week Amount used: 2 bags Age of first use: 23 Date of last use: 07/05/19 Cocaine Substance route: Injection Frequency: 3-6 times per week Amount used: $20 Age of first use: 20 Date of last use: 07/05/19 Admission Physical Exam BHS - Vital Signs Vital Signs: Vital Signs - 24 hr 07/06/19 17:59 Temperature 98.7 F Pulse Rate 89 Respiratory 18 Rate Blood Pressure 123/79 - Physical General Appearance: Yes: No Apparent Distress, Appropriately Dressed, Thin, Tremorous, Sweating, Anxious HEENTM: Yes: Hearing grossly Normal, Normocephalic, Normal Voice, OSITO, Pharynx Normal Respiratory: Yes: Chest Non-Tender, Lungs Clear, Normal Breath Sounds, No Respiratory Distress, No Accessory Muscle Use Neck: Yes: No masses,lesions,Nodules, Supple, Trachea in good position Breast: Yes: Breast Exam Deferred, Axillae without masses Cardiology: Yes: Regular Rhythm, S1, S2, Tachycardia Abdominal: Yes: Normal Bowel Sounds, Non Tender, Flat, Soft Back: Yes: Normal Inspection Musculoskeletal: Yes: full range of Motion, Gait Steady, Pelvis Stable, Muscle Pain, Muscle weakness Extremities: Yes: Normal Capillary Refill, Normal Range of Motion, Non-Tender, Tremors Neurological: Yes: investment counselor II-XII NML intact, Fully Oriented, Alert, Motor Strength 5/5, Normal Response Integumentary: Yes: Normal Color, Warm, Track Proctor Lymphatic: Yes: Within Normal Limits - Diagnostic (1) Alcohol dependence with uncomplicated withdrawal Current Visit: No Status: Chronic (2) Nicotine dependence Current Visit: No Status: Chronic Qualifiers: Nicotine product type: cigarettes Substance use status: in withdrawal Qualified Code(s): F17.213 - Nicotine dependence, cigarettes, with withdrawal (3) AIDS Current Visit: No Status: Chronic (4) Hepatitis C Current Visit: No Status: Chronic Qualifiers: Viral hepatitis chronicity: chronic Hepatic coma status: without hepatic coma Qualified Code(s): B18.2 - Chronic viral hepatitis C Comment: TREATED AND UNDETECTABLE PER PATIENT. (5) Heroin dependence Current Visit: No Status: Chronic (6) Opioid dependence on agonist therapy Current Visit: No Status: Chronic Comment: on Suboxone 8 mg TID (7) Cocaine dependence Current Visit: Yes Status: Chronic Qualifiers: Substance use status: uncomplicated Qualified Code(s): F14.20 - Cocaine dependence, uncomplicated (8) Cocaine dependence, uncomplicated Current Visit: No Status: Chronic Cleared for Admission S - Detox or Rehab [facility] Level of Care: Medically Managed Detox Regimen/Protocol: Librium Breathalyzer - Breathalyzer Breathalyzer: 0 Urine Drug Screen - Test Device Lot number: [id number] Expiration date: 04/01/21 - Control Is test valid?: Yes - Results Drug screen NEGATIVE: No Urine drug screen results: THC-Marijuana, ARNAUD-Cocaine, FEN-Fentanyl, MOP-Opiates , OXY-Oxycodone, BUP-Suboxone Inpatient Rehab Admission - Rehab Decision to Admit Inpatient rehab admission?: No
[2019-07-06] MEDS ORDERED: MAGNESIUM HYDROX 2400MG/30ML ORAL SUSPENSION 30 ML CUP PO PRN (21:24)
[2019-07-06] MEDS ORDERED: chlordiazePOXIDE HCL 10 MG CAPSULE PO PRN (21:24)
[2019-07-06] MEDS ORDERED: NICOTINE POLACRILEX 4 MG GUM BUC PRN (21:24)
[2019-07-06] MEDS ORDERED: METHOCARBAMOL 500 MG TABLET PO PRN (21:24)
[2019-07-06] MEDS ORDERED: MENTHOL/PHENOL 1 EACH UD MM PRN (21:24)
[2019-07-06] MEDS ORDERED: BISMUTH SUBSALICYLATE 524 MG/30 ML UD PO PRN (21:24)
[2019-07-06] MEDS ORDERED: ACETAMINOPHEN 325 MG TABLET (FP) PO PRN ×2 (21:24)
[2019-07-06] MEDS ORDERED: hydrOXYzine PAMOATE 25 MG CAPSULE (FP) PO PRN (21:24)
[2019-07-06] MEDS ORDERED: MAGNESIUM CITRATE 300 ML BOTTLE PO PRN (21:24)
[2019-07-06] MEDS ORDERED: IBUPROFEN 400 MG TABLET (FP) PO PRN (21:24)
[2019-07-06] MEDS ORDERED: chlordiazePOXIDE HCL 25 MG CAPSULE PO ONE (21:24)
[2019-07-06] MEDS ORDERED: MAG HYDROX/AL HYDROX/SIMETH 30 ML UNIT-DOSE CUP PO PRN (21:24)
[2019-07-06] MEDS: chlordiazePOXIDE HCL 25 MG CAPSULE PO SCH (22:40)
[2019-07-06] MEDS: THIAMINE HCL 100 MG TABLET (FP) PO SCH (22:40)
[2019-07-06] MEDS: MELATONIN 5 MG TABLETS PO PRN (22:41)
[2019-07-07] MEDS: chlordiazePOXIDE HCL 25 MG CAPSULE PO SCH ×3 (05:43→21:39)
[2019-07-07] MEDS ORDERED: NICOTINE 21 MG/24 HOURS TOPICAL PATCH TD SCH (10:00)
[2019-07-07] MEDS ORDERED: PRENATAL VITAMINS W/ FOLIC ACID TABLET (FP) PO SCH (10:00)
[2019-07-07] MEDS ORDERED: BUPRENORPHINE/NALOXONE 8 MG/2 MG FILM PACKET SL ONE (12:15)
--- NOTE | 2019-07-07 13:29 | PN ---
S CIWA - CIWA Score Nausea/Vomitin-Mild Nausea/No Vomiting Muscle Tremors: 3 Anxiety: 3 Agitation: 2 Paroxysmal Sweats: 3 Orientation: 0-Oriented Tacttile Disturbances: 2-Mild Itch/Numbness/Burn Auditory Disturbances: 0-None Visual Disturbances: 0-None Headache: 2-Mild CIWA-Ar Total Score: 16 BHS COWS - Scale Resting Pulse: 0= [place] 80 or Below Sweatin= Chills/Flushing Restless Observation: 0= Sits Still Pupil Size: 1= Pupils >than Normal Bone or Joint Aches: 1= Mild Discomfort Runny Nose/ Eye Tearin= Nasal Congestion GI Upset > 30mins: 2= Nausea/Diarrhea Tremor Observation of Outstretched Hands: 2= Slight Tremor Visible Yawning Observation: 1= 1-2x During Session Anxiety or Irritability: 2=Irritable/Anxious Goose Flesh Skin: 3=Piloerection COWS Score: 14 BHS Progress Note (SOAP) Subjective: 49 years old male admitted on 07/06/19 for alcohol withdrawal sx management treating with librium detox regimen reprots taking suboxone 8-2mg po tid IStop indicates suboxone 8-2mg sl tid last 30days filled on 05/14/19 reviewed suboxone clinic visit reveal the patient received his suboxone every third month as 08/2018 and last visited 05/14/[address] Vesta Nuñez comic book writer called preferred pharmacy [phone] no answer due to urine tox positive sub fen and mop and oxy one dose of suboxone 8-2mg sl x 1 medical provider will contact suboxone prescriber Objective: 07/07/19 13:30 Vital Signs Temperature 97.2 F L 07/07/19 13:15 Pulse Rate 70 07/07/19 13:15 Respiratory Rate 16 07/07/19 13:15 Blood Pressure 131/83 07/07/19 13:15 O2 Sat by Pulse Oximetry (%) 07/07/19 13:31 lab pending Assessment: 07/07/19 13:34 alcohol and opiate withdrawal Plan: librium and possible suboxone detox regimens
[2019-07-07 13:49] LABS: ALBUMIN 3.5 g/dl (3.4-5.0); BILIRUBIN,TOTAL 0.4 mg/dL (0.2-1); BLOOD UREA NITROGEN 9.7 mg/dL (7-18); CALCIUM 8.7 mg/dL (8.5-10.1); CREATININE 0.8 mg/dL (0.55-1.3); POTASSIUM 4.1 mmol/L (3.5-5.1); TOT PROT 6.7 g/dl (6.4-8.2)
[2019-07-07 13:52] LABS: HEMATOCRIT 33.9 % (35.4-49); HEMOGLOBIN 11.2 GM/dL (11.7-16.9); MCHC 32.9 g/dl (32.0-35.9); MEAN PLT VOLUME 8.4 fl (7.5-11.1); PLATELET COUNT 209 K/MM3 (134-434); RBC 4.14 M/mm3 (4.00-5.60); RDW 14.5 % (11.9-15.9); WHITE BLOOD COUNT 3.7 K/mm3 (4.0-10.0)
[2019-07-07] MEDS: THIAMINE HCL 100 MG TABLET (FP) PO SCH (21:39)
[2019-07-07] MEDS: MELATONIN 5 MG TABLETS PO PRN (21:39)
[2019-07-08] MEDS ORDERED: chlordiazePOXIDE 5 MG CAPSULE PO SCH (05:00)
[2019-07-08 09:19] VITALS: BP 144/84; PULSE 81; TEMP 98.6
--- NOTE | 2019-07-08 09:29 | PN ---
S CIWA - CIWA Score Nausea/Vomitin-Mild Nausea/No Vomiting Muscle Tremors: 3 Anxiety: 4-Mod. Anxious/Guarded Agitation: 1-Slight > Activity Paroxysmal Sweats: 2 Orientation: 0-Oriented Tacttile Disturbances: 1-Very Mild Itch/Numbness Auditory Disturbances: 0-None Visual Disturbances: 0-None Headache: 2-Mild CIWA-Ar Total Score: 14 BHS Progress Note (SOAP) Subjective: 49 years old male admitted on 07/06/19 for alcohol withdrawal sx management treating with librium detox regimen reports taking suboxone 8-2mg sl tid check writer salesperson called preferred pharmacy at [phone] spoke with the pharmacist that last prescription filled on 05/14/19 check writer salesperson called prescriber Dr Ishan Nuñez at [phone] without person to person phone conversation check writer salesperson will continue to reach out to doctor Savannah for continuity of care for suboxone 8-2mg sl tid Objective: 07/08/19 09:29 Vital Signs Temperature 98.6 F 07/08/19 09:17 Pulse Rate 81 07/08/19 09:17 Respiratory Rate 18 07/08/19 09:17 Blood Pressure 144/84 07/08/19 09:17 O2 Sat by Pulse Oximetry (%) Laboratory Last Values WBC 3.7 K/mm3 (4.0-10.0) L 07/07/19 07:30 RBC 4.14 M/mm3 (4.00-5.60) 07/07/19 07:30 Hgb 11.2 GM/dL (11.7-16.9) L 07/07/19 07:30 Hct 33.9 % (35.4-49) L 07/07/19 07:30 MCV 82.0 fl (80-96) 07/07/19 07:30 MCH 27.0 pg (25.7-33.7) 07/07/19 07:30 MCHC 32.9 g/dl (32.0-35.9) 07/07/19 07:30 RDW 14.5 % (11.9-15.9) 07/07/19 07:30 Plt Count 209 K/MM3 (134-434) 07/07/19 07:30 MPV 8.4 fl (7.5-11.1) 07/07/19 07:30 Sodium 140 mmol/L (136-145) 07/07/19 07:30 Potassium 4.1 mmol/L (3.5-5.1) 07/07/19 07:30 Chloride 106 mmol/L (98-107) 07/07/19 07:30 Carbon Dioxide 29 mmol/L (21-32) 07/07/19 07:30 Anion Gap 5 MMOL/L (8-16) L 07/07/19 07:30 BUN 9.7 mg/dL (7-18) 07/07/19 07:30 Creatinine 0.8 mg/dL (0.55-1.3) 07/07/19 07:30 Est GFR (CKD-EPI)AfAm 123.29 07/07/19 07:30 Est GFR (CKD-EPI)NonAf 106.38 07/07/19 07:30 Random Glucose 97 mg/dL (74-106) 07/07/19 07:30 Calcium 8.7 mg/dL (8.5-10.1) 07/07/19 07:30 Total Bilirubin 0.4 mg/dL (0.2-1) 07/07/19 07:30 AST 21 U/L (15-37) 07/07/19 07:30 ALT 27 U/L (13-61) 07/07/19 07:30 Alkaline Phosphatase 100 U/L (45-117) 07/07/19 07:30 Total Protein 6.7 g/dl (6.4-8.2) 07/07/19 07:30 Albumin 3.5 g/dl (3.4-5.0) 07/07/19 07:30 RPR Titer Nonreactive (NONREACTIVE) 07/07/19 07:30 07/08/19 09:29 lab noted Assessment: 07/08/19 09:29 alcohol withdrawal suboxone maintenance 8-2mg sl tid needed to be confirmed due to IStop last filled 05/14/19 Plan: librium regimen possible suboxone 8-2mg sl tid waiting for doctor Savannah bartlett
[2019-07-08] MEDS ORDERED: BUPRENORPHINE/NALOXONE 8 MG/2 MG FILM PACKET SL SCH (10:00)
--- NOTE | 2019-07-08 15:59 | DS ---
[facility] Detox Discharge Summary Admission Date: 07/06/19 Discharge Date: 07/08/19 - History Present History: Alcohol Dependence Additional Comments: 49 years old male admitted on 07/06/19 for alcohol withdrawal sx management treated with librium detox regimen patient is alert oriented x 3 speech clearly coherently ambulating with steady gait patient insists to leave the detox due to no suboxone 8-2mg sl tid Pertinent Past History: case discussed with the nurse against medical advice is appropriated - Physical Exam Results Vital Signs: Vital Signs Temperature 98.6 F 07/08/19 09:17 Pulse Rate 81 07/08/19 09:17 Respiratory Rate 18 07/08/19 09:17 Blood Pressure 144/84 07/08/19 09:17 O2 Sat by Pulse Oximetry (%) Pertinent Admission Physical Exam Findings: alcohol withdrawal Laboratory Last Values WBC 3.7 K/mm3 (4.0-10.0) L 07/07/19 07:30 RBC 4.14 M/mm3 (4.00-5.60) 07/07/19 07:30 Hgb 11.2 GM/dL (11.7-16.9) L 07/07/19 07:30 Hct 33.9 % (35.4-49) L 07/07/19 07:30 MCV 82.0 fl (80-96) 07/07/19 07:30 MCH 27.0 pg (25.7-33.7) 07/07/19 07:30 MCHC 32.9 g/dl (32.0-35.9) 07/07/19 07:30 RDW 14.5 % (11.9-15.9) 07/07/19 07:30 Plt Count 209 K/MM3 (134-434) 07/07/19 07:30 MPV 8.4 fl (7.5-11.1) 07/07/19 07:30 Sodium 140 mmol/L (136-145) 07/07/19 07:30 Potassium 4.1 mmol/L (3.5-5.1) 07/07/19 07:30 Chloride 106 mmol/L (98-107) 07/07/19 07:30 Carbon Dioxide 29 mmol/L (21-32) 07/07/19 07:30 Anion Gap 5 MMOL/L (8-16) L 07/07/19 07:30 BUN 9.7 mg/dL (7-18) 07/07/19 07:30 Creatinine 0.8 mg/dL (0.55-1.3) 07/07/19 07:30 Est GFR (CKD-EPI)AfAm 123.29 07/07/19 07:30 Est GFR (CKD-EPI)NonAf 106.38 07/07/19 07:30 Random Glucose 97 mg/dL (74-106) 07/07/19 07:30 Calcium 8.7 mg/dL (8.5-10.1) 07/07/19 07:30 Total Bilirubin 0.4 mg/dL (0.2-1) 07/07/19 07:30 AST 21 U/L (15-37) 07/07/19 07:30 ALT 27 U/L (13-61) 07/07/19 07:30 Alkaline Phosphatase 100 U/L (45-117) 07/07/19 07:30 Total Protein 6.7 g/dl (6.4-8.2) 07/07/19 07:30 Albumin 3.5 g/dl (3.4-5.0) 07/07/19 07:30 RPR Titer Nonreactive (NONREACTIVE) 07/07/19 07:30 lab noted - Treatment Hospital Course: Detox Protocol Followed Patient has Accepted a Rehab Referral to: community support approach - Medication Discharge Medications: Ambulatory Orders Emtricita/Rilpivirine/Tenof Df [Complera Tablet] 1 each PO DAILY 05/04/15 Albuterol Sulfate Inhaler - [Ventolin HFA Inhaler -] 2 inh IH Q4H PRN #1 inhaler 07/18/18 Enalapril Maleate [Vasotec] 20 mg PO DAILY #14 tablet 07/18/18 - Diagnosis (1) Alcohol dependence with uncomplicated withdrawal Status: Acute (2) Weight loss Status: Acute (3) AIDS Status: Chronic (4) Alcohol dependence with uncomplicated withdrawal Status: Acute (5) Asthma Status: Chronic Qualifiers: Asthma severity: mild Asthma persistence: intermittent Asthma complication type: with status asthmaticus Qualified Code(s): J45.22 - Mild intermittent asthma with status asthmaticus (6) HIV (human immunodeficiency virus infection) Status: Chronic Qualifiers: HIV symptom status: asymptomatic Qualified Code(s): Z21 - Asymptomatic human immunodeficiency virus [HIV] infection status (7) HTN (hypertension), benign Status: Chronic (8) Hepatitis C Status: Chronic Qualifiers: Viral hepatitis chronicity: chronic Hepatic coma status: without hepatic coma Qualified Code(s): B18.2 - Chronic viral hepatitis C (9) Nicotine dependence Status: Acute Qualifiers: Nicotine product type: cigarettes Substance use status: in withdrawal Qualified Code(s): F17.213 - Nicotine dependence, cigarettes, with withdrawal (10) Substance induced mood disorder Status: Suspected - AMA Did Patient Leave Against Medical Advice: Yes
[2019-07-09] MEDS ORDERED: chlordiazePOXIDE HCL 10 MG CAPSULE PO PRN
[2019-07-09] MEDS ORDERED: chlordiazePOXIDE HCL 10 MG CAPSULE PO SCH (05:00)
[2019-07-10] MEDS ORDERED: chlordiazePOXIDE HCL 10 MG CAPSULE PO ONE (05:00)
== END 2019-07-08 09:55 | disposition left against medical advice (07) | DRG 770 ==
LOC: YASAS 16:58 → Y3N 21:35
PROVIDERS: ADMIT Allergy & Immunology; ATTEND Allergy & Immunology
PROC: HZ2ZZZZ Detoxification Services for Substance Abuse Treatment (ICD-10-PCS; principal; 2019-07-06)
DX: F10.230 Alcohol dependence with withdrawal, uncomplicated (principal); F11.20 Opioid dependence, uncomplicated; F14.20 Cocaine dependence, uncomplicated; F17.213 Nicotine dependence, cigarettes, with withdrawal; F19.24 Other psychoactive substance dependence with psychoactive substance-induced mood disorder; I10 Essential (primary) hypertension; B20 Human immunodeficiency virus [HIV] disease; R63.4 Abnormal weight loss; J45.22 Mild intermittent asthma with status asthmaticus; B18.2 Chronic viral hepatitis C; D64.9 Anemia, unspecified; R00.0 Tachycardia, unspecified
CPT/HCPCS: 36415; 80053; 85027; 86593

== ENCOUNTER 2020-07-24 10:56 | Inpatient (IN) | payer OTHER ==
[2020-07-24 11:31] VITALS: BMI 23.5
[2020-07-24] MEDS ORDERED: IBUPROFEN 400 MG TABLET (FP) PO PRN (12:08)
[2020-07-24] MEDS ORDERED: MAGNESIUM CITRATE 300 ML BOTTLE PO PRN (12:08)
[2020-07-24] MEDS ORDERED: NICOTINE POLACRILEX 2 MG GUM BUC PRN (12:08)
[2020-07-24] MEDS ORDERED: MAGNESIUM HYDROX 2400MG/30ML ORAL SUSPENSION 30 ML CUP PO PRN (12:08)
[2020-07-24] MEDS ORDERED: MENTHOL/PHENOL 1 EACH UD MM PRN (12:08)
[2020-07-24] MEDS ORDERED: BISMUTH SUBSALICYLATE 262 MG/15 ML BTL PO PRN (12:08)
[2020-07-24] MEDS ORDERED: ACETAMINOPHEN 325 MG TABLET (FP) PO PRN ×2 (12:08)
[2020-07-24] MEDS ORDERED: MAG HYDROX/AL HYDROX/SIMETH 30 ML UNIT-DOSE CUP PO PRN (12:08)
[2020-07-24] MEDS ORDERED: chlordiazePOXIDE HCL 25 MG CAPSULE PO PRN (12:08)
[2020-07-24] MEDS ORDERED: METHOCARBAMOL 500 MG TABLET PO PRN (12:08)
[2020-07-24] MEDS ORDERED: ONDANSETRON *ODT* 4 MG TABLET SL PRN (12:08)
[2020-07-24] MEDS ORDERED: ALBUTEROL SO4 HFA INHALER IH PRN (12:10)
[2020-07-24] MEDS: chlordiazePOXIDE HCL 25 MG CAPSULE PO SCH ×3 (13:15→22:24)
[2020-07-24] MEDS: PRENATAL VITAMINS W/ FOLIC ACID TABLET (FP) PO SCH (13:20)
[2020-07-24] MEDS: NICOTINE 21 MG/24 HOURS TOPICAL PATCH TD SCH (13:20)
[2020-07-24] MEDS: BUPRENORPHINE/NALOXONE 8 MG/2 MG FILM PACKET SL SCH ×2 (13:21→22:26)
[2020-07-24] MEDS: hydrOXYzine PAMOATE 25 MG CAPSULE (FP) PO SCH ×3 (13:24→22:24)
[2020-07-24 15:25] LABS: HEMATOCRIT 33.6 % (35.4-49); MCH 27.7 pg (25.7-33.7); MCHC 32.8 g/dl (32.0-35.9); MEAN CELL VOLUME 84.3 fl (80-96); PLATELET COUNT 225 K/MM3 (134-434); POTASSIUM 4.3 mmol/L (3.5-5.1); RBC 3.99 M/mm3 (4.00-5.60); RDW 14.8 % (11.9-15.9); WHITE BLOOD COUNT 4.8 K/mm3 (4.0-10.0)
[2020-07-24 15:27] LABS: CALCIUM 9.5 mg/dL (8.5-10.1)
[2020-07-24 15:28] LABS: ALBUMIN 3.9 g/dl (3.4-5.0); BLOOD UREA NITROGEN 10.5 mg/dL (7-18)
[2020-07-24 15:31] LABS: CREATININE 0.9 mg/dL (0.55-1.3)
[2020-07-24 15:32] LABS: BILIRUBIN,TOTAL 0.8 mg/dL (0.2-1); TOT PROT 7.2 g/dl (6.4-8.2)
[2020-07-24] MEDS: THIAMINE HCL 100 MG TABLET (FP) PO SCH (22:24)
[2020-07-24] MEDS: MELATONIN 5 MG TABLETS PO SCH (22:24)
[2020-07-25] MEDS: chlordiazePOXIDE HCL 25 MG CAPSULE PO SCH ×4 (05:58→22:19)
[2020-07-25] MEDS: BUPRENORPHINE/NALOXONE 8 MG/2 MG FILM PACKET SL SCH ×3 (05:59→22:19)
[2020-07-25] MEDS: hydrOXYzine PAMOATE 25 MG CAPSULE (FP) PO SCH ×5 (05:59→22:19)
[2020-07-25] MEDS ORDERED: EMTRICITAB/RILPIVIRINE/TENOFOV 1 EACH TABLET PO SCH (08:00)
[2020-07-25] MEDS: PRENATAL VITAMINS W/ FOLIC ACID TABLET (FP) PO SCH (10:26)
[2020-07-25] MEDS: ENALAPRIL MALEATE 10 MG TABLET PO SCH (10:27)
[2020-07-25] MEDS: NICOTINE 21 MG/24 HOURS TOPICAL PATCH TD SCH (10:29)
[2020-07-25] MEDS: MELATONIN 5 MG TABLETS PO SCH (22:19)
[2020-07-25] MEDS: THIAMINE HCL 100 MG TABLET (FP) PO SCH (22:19)
[2020-07-26] MEDS: BUPRENORPHINE/NALOXONE 8 MG/2 MG FILM PACKET SL SCH ×3 (05:21→22:02)
[2020-07-26] MEDS: chlordiazePOXIDE HCL 25 MG CAPSULE PO SCH ×4 (05:21→22:04)
[2020-07-26] MEDS: hydrOXYzine PAMOATE 25 MG CAPSULE (FP) PO SCH ×5 (05:21→22:02)
[2020-07-26] MEDS: EMTRICITAB/RILPIVIRINE/TENOFOV 1 EACH TABLET PO SCH (07:20)
[2020-07-26] MEDS: ENALAPRIL MALEATE 10 MG TABLET PO SCH (10:17)
[2020-07-26] MEDS: PRENATAL VITAMINS W/ FOLIC ACID TABLET (FP) PO SCH (10:17)
[2020-07-26] MEDS: NICOTINE 21 MG/24 HOURS TOPICAL PATCH TD SCH (10:17)
[2020-07-26] MEDS ORDERED: FLU VACCINE (FLULAVAL) PF 60 MCG/0.5 ML SYRINGE 2020-2021 IM ONE (12:00)
[2020-07-26] MEDS: THIAMINE HCL 100 MG TABLET (FP) PO SCH (22:02)
[2020-07-26] MEDS: MELATONIN 5 MG TABLETS PO SCH (22:02)
[2020-07-27] MEDS ORDERED: chlordiazePOXIDE HCL 10 MG CAPSULE PO PRN
[2020-07-27] MEDS: chlordiazePOXIDE HCL 10 MG CAPSULE PO SCH ×2 (05:14→10:10)
[2020-07-27] MEDS: hydrOXYzine PAMOATE 25 MG CAPSULE (FP) PO SCH ×2 (05:15→10:10)
[2020-07-27] MEDS: BUPRENORPHINE/NALOXONE 8 MG/2 MG FILM PACKET SL SCH (05:15)
[2020-07-27] MEDS: EMTRICITAB/RILPIVIRINE/TENOFOV 1 EACH TABLET PO SCH (07:22)
[2020-07-27] MEDS: ENALAPRIL MALEATE 10 MG TABLET PO SCH (10:09)
[2020-07-27] MEDS: NICOTINE 21 MG/24 HOURS TOPICAL PATCH TD SCH (10:09)
[2020-07-27] MEDS: PRENATAL VITAMINS W/ FOLIC ACID TABLET (FP) PO SCH (10:09)
[2020-07-27 13:39] VITALS: BP 124/80; PULSE 104; TEMP 97.3
[2020-07-28] MEDS ORDERED: chlordiazePOXIDE HCL 10 MG CAPSULE PO SCH (05:00)
[2020-07-29] MEDS ORDERED: chlordiazePOXIDE HCL 10 MG CAPSULE PO ONE (05:00)
== END 2020-07-27 12:45 | disposition home or self-care (01) | DRG 773 ==
LOC: YASAS 10:56 → Y3N 12:17
PROVIDERS: ADMIT Allergy & Immunology; ATTEND Allergy & Immunology
PROC: HZ2ZZZZ Detoxification Services for Substance Abuse Treatment (ICD-10-PCS; principal; 2020-07-24)
DX: F10.230 Alcohol dependence with withdrawal, uncomplicated (principal); F11.20 Opioid dependence, uncomplicated; F14.10 Cocaine abuse, uncomplicated; F12.20 Cannabis dependence, uncomplicated; F17.210 Nicotine dependence, cigarettes, uncomplicated; F19.282 Other psychoactive substance dependence with psychoactive substance-induced sleep disorder; B20 Human immunodeficiency virus [HIV] disease; I10 Essential (primary) hypertension; J45.909 Unspecified asthma, uncomplicated; R63.4 Abnormal weight loss; Z68.23 Body mass index [BMI] 23.0-23.9, adult; Z86.19 Personal history of other infectious and parasitic diseases; Z51.81 Encounter for therapeutic drug level monitoring; Z79.899 Other long term (current) drug therapy
CPT/HCPCS: 36415; 80053; 85027; 86780; C9803; U0003

== ENCOUNTER 2022-08-03 17:06 | Inpatient (IN) | payer OTHER ==
[2022-08-03 17:29] VITALS: BMI 23.6
[2022-08-03] MEDS ORDERED: BENZOCAINE/MENTHOL (CHLORASEPTIC ) LOZENGE MM PRN (18:22)
[2022-08-03] MEDS ORDERED: NICOTINE POLACRILEX 2 MG GUM BUC PRN (18:22)
[2022-08-03] MEDS ORDERED: MAGNESIUM HYDROX 2400MG/30ML ORAL SUSPENSION 30 ML CUP PO PRN (18:22)
[2022-08-03] MEDS ORDERED: hydrOXYzine PAMOATE 25 MG CAPSULE (FP) PO PRN (18:22)
[2022-08-03] MEDS ORDERED: IBUPROFEN 400 MG TABLET (FP) PO PRN (18:22)
[2022-08-03] MEDS ORDERED: IBUPROFEN 600 MG TABLET (FP) PO PRN (18:22)
[2022-08-03] MEDS ORDERED: POLYETHYLENE GLYCOL (HEALTHYLAX) 3350 17 GM PACKET PO PRN (18:22)
[2022-08-03] MEDS ORDERED: ONDANSETRON *ODT* 4 MG TABLET SL PRN (18:22)
[2022-08-03] MEDS ORDERED: BISMUTH SUBSALICYLATE 524 MG/30 ML PO PRN (18:22)
[2022-08-03] MEDS ORDERED: METHOCARBAMOL 500 MG TABLET PO PRN (18:22)
[2022-08-03] MEDS ORDERED: chlordiazePOXIDE HCL 25 MG CAPSULE PO PRN (18:22)
[2022-08-03] MEDS ORDERED: MAG HYDROX/AL HYDROX/SIMETH 30 ML UNIT-DOSE CUP PO PRN (18:22)
[2022-08-03] MEDS ORDERED: ACETAMINOPHEN 325 MG TABLET (FP) PO PRN ×2 (18:22)
[2022-08-03] MEDS ORDERED: LOPERAMIDE HCL 2 MG CAPSULE PO PRN (18:22)
[2022-08-03] MEDS ORDERED: NALOXONE HCL (KLOXXADO) 8 MG SPRAY NS PRN (18:22)
[2022-08-03] MEDS ORDERED: DICYCLOMINE HCL 10 MG CAPSULE PO PRN (18:22)
[2022-08-03] MEDS ORDERED: NICOTINE 10 MG CARTRIDGE (INHALER) IH PRN (18:22)
[2022-08-03] MEDS ORDERED: ALBUTEROL SO4 HFA INHALER IH PRN (19:44)
[2022-08-03] MEDS: CEPHALEXIN MONOHYDRATE 500 MG CAPSULE (UD) PO SCH (22:27)
[2022-08-03] MEDS: THIAMINE HCL 100 MG TABLET (FP) PO SCH (22:27)
[2022-08-03] MEDS: MELATONIN 5 MG TABLETS PO SCH (22:27)
[2022-08-03] MEDS: chlordiazePOXIDE HCL 25 MG CAPSULE PO SCH (22:28)
[2022-08-04] MEDS: chlordiazePOXIDE HCL 25 MG CAPSULE PO SCH ×4 (05:16→22:33)
[2022-08-04] MEDS: PRENATAL VITAMINS W/ FOLIC ACID TABLET (FP) PO SCH (10:19)
[2022-08-04] MEDS: CEPHALEXIN MONOHYDRATE 500 MG CAPSULE (UD) PO SCH ×2 (10:19→22:33)
[2022-08-04 10:47] LABS: ALBUMIN 3.4 g/dl (3.4-5.0); BLOOD UREA NITROGEN 16.9 mg/dL (7-18)
[2022-08-04 10:51] LABS: BILIRUBIN,TOTAL 0.3 mg/dL (0.2-1); CREATININE 0.8 mg/dL (0.55-1.3); TOT PROT 6.3 g/dl (6.4-8.2)
[2022-08-04 10:55] LABS: HEMATOCRIT 35.1 % (35.4-49); HEMOGLOBIN 11.5 GM/dL (11.7-16.9); MCH 27.5 pg (25.7-33.7); MCHC 32.7 g/dl (32.0-35.9); MEAN PLT VOLUME 8.3 fl (7.5-11.1); PLATELET COUNT 219 10^3/uL (134-434); RBC 4.18 M/mm3 (4.00-5.60); RDW 14.4 % (11.9-15.9); WHITE BLOOD COUNT 3.7 K/mm3 (4.0-10.0)
[2022-08-04] MEDS: ENALAPRIL MALEATE 10 MG TABLET PO SCH (11:33)
[2022-08-04] MEDS: EMTRICITAB/RILPIVIRINE/TENOFOV 1 EACH TABLET PO SCH (11:34)
[2022-08-04] MEDS: THIAMINE HCL 100 MG TABLET (FP) PO SCH (22:33)
[2022-08-04] MEDS: MELATONIN 5 MG TABLETS PO SCH (22:33)
[2022-08-05] MEDS: chlordiazePOXIDE HCL 25 MG CAPSULE PO SCH ×4 (05:57→23:03)
[2022-08-05] MEDS: EMTRICITAB/RILPIVIRINE/TENOFOV 1 EACH TABLET PO SCH (07:22)
[2022-08-05] MEDS: PRENATAL VITAMINS W/ FOLIC ACID TABLET (FP) PO SCH (10:27)
[2022-08-05] MEDS: CEPHALEXIN MONOHYDRATE 500 MG CAPSULE (UD) PO SCH ×3 (10:28→23:49)
[2022-08-05] MEDS: ENALAPRIL MALEATE 10 MG TABLET PO SCH (10:28)
[2022-08-05] MEDS ORDERED: BUPRENORPHINE/NALOXONE 4 MG/1 MG FILM PACKET SL ONE (11:00)
[2022-08-05] MEDS: MELATONIN 5 MG TABLETS PO SCH ×2 (23:03→23:49)
[2022-08-05] MEDS: THIAMINE HCL 100 MG TABLET (FP) PO SCH ×2 (23:03→23:51)
[2022-08-06] MEDS ORDERED: chlordiazePOXIDE HCL 10 MG CAPSULE PO PRN
[2022-08-06] MEDS: chlordiazePOXIDE HCL 10 MG CAPSULE PO SCH ×2 (05:37→10:17)
[2022-08-06 06:37] VITALS: RESP 18
[2022-08-06] MEDS: EMTRICITAB/RILPIVIRINE/TENOFOV 1 EACH TABLET PO SCH (10:15)
[2022-08-06] MEDS: ENALAPRIL MALEATE 10 MG TABLET PO SCH (10:15)
[2022-08-06] MEDS: CEPHALEXIN MONOHYDRATE 500 MG CAPSULE (UD) PO SCH (10:16)
[2022-08-06] MEDS: PRENATAL VITAMINS W/ FOLIC ACID TABLET (FP) PO SCH (10:16)
[2022-08-06 13:12] VITALS: BP 154/89; PULSE 94; TEMP 97.1
[2022-08-07] MEDS ORDERED: chlordiazePOXIDE HCL 10 MG CAPSULE PO SCH (05:00)
[2022-08-08] MEDS ORDERED: chlordiazePOXIDE HCL 10 MG CAPSULE PO ONE (05:00)
== END 2022-08-06 15:36 | disposition left against medical advice (07) | DRG 770 ==
LOC: YASAS 17:06 → Y6N 18:37
PROVIDERS: ADMIT Allergy & Immunology; ATTEND Family Medicine
PROC: HZ2ZZZZ Detoxification Services for Substance Abuse Treatment (ICD-10-PCS; principal; 2022-08-03)
DX: F10.230 Alcohol dependence with withdrawal, uncomplicated (principal); F11.20 Opioid dependence, uncomplicated; F14.20 Cocaine dependence, uncomplicated; F17.210 Nicotine dependence, cigarettes, uncomplicated; B20 Human immunodeficiency virus [HIV] disease; Z79.899 Other long term (current) drug therapy; I10 Essential (primary) hypertension; J45.909 Unspecified asthma, uncomplicated; L03.115 Cellulitis of right lower limb; M54.50 Low back pain, unspecified; G89.29 Other chronic pain
CPT/HCPCS: 36415; 80053; 85027; 86780; C9803-CS; U0003; U0005

== ENCOUNTER 2022-10-18 14:39 | Inpatient (IN) | payer OTHER ==
[2022-10-18 18:39] VITALS: BMI 22.2
[2022-10-18] MEDS ORDERED: IBUPROFEN 400 MG TABLET (FP) PO PRN (20:16)
[2022-10-18] MEDS ORDERED: MAGNESIUM HYDROX 2400MG/30ML ORAL SUSPENSION 30 ML CUP PO PRN (20:16)
[2022-10-18] MEDS ORDERED: POLYETHYLENE GLYCOL (HEALTHYLAX) 3350 17 GM PACKET PO PRN (20:16)
[2022-10-18] MEDS ORDERED: LOPERAMIDE HCL 2 MG CAPSULE PO PRN (20:16)
[2022-10-18] MEDS ORDERED: NALOXONE HCL 0.4 MG/ML VIAL IM PRN (20:16)
[2022-10-18] MEDS ORDERED: BISMUTH SUBSALICYLATE 524 MG/30 ML PO PRN (20:16)
[2022-10-18] MEDS ORDERED: guaiFENesin 600 MG TABLET.ER (FP) PO PRN (20:16)
[2022-10-18] MEDS ORDERED: ONDANSETRON *ODT* 4 MG TABLET SL PRN (20:16)
[2022-10-18] MEDS ORDERED: BENZONATATE 200 MG CAPSULE PO PRN (20:16)
[2022-10-18] MEDS ORDERED: ACETAMINOPHEN 325 MG TABLET (FP) PO PRN (20:16)
[2022-10-18] MEDS ORDERED: MAG HYDROX/AL HYDROX/SIMETH 30 ML UNIT-DOSE CUP PO PRN (20:16)
[2022-10-18] MEDS ORDERED: NALOXONE HCL (KLOXXADO) 8 MG SPRAY NS PRN (20:16)
[2022-10-18] MEDS ORDERED: BENZOCAINE/MENTHOL (CHLORASEPTIC ) LOZENGE MM PRN (20:16)
[2022-10-18] MEDS ORDERED: DICYCLOMINE HCL 10 MG CAPSULE PO PRN (20:16)
[2022-10-18] MEDS ORDERED: NICOTINE 10 MG CARTRIDGE (INHALER) IH PRN (20:16)
[2022-10-18] MEDS: MELATONIN 5 MG TABLETS PO SCH (22:50)
[2022-10-18] MEDS: THIAMINE HCL 100 MG TABLET (FP) PO SCH (22:51)
[2022-10-19] MEDS ORDERED: BUPRENORPHINE HCL 150 MCG, BUPRENORPHINE HCL 75 MCG BC PRN (10:22)
[2022-10-19] MEDS ORDERED: BUPRENORPHINE HCL 150 MCG, BUPRENORPHINE HCL 75 MCG BC ONE (11:00)
[2022-10-19] MEDS ORDERED: cloNIDine HCL 0.1 MG TABLET PO ONE (11:00)
[2022-10-19 11:24] LABS: HEMATOCRIT 33.3 % (35.4-49); HEMOGLOBIN 11.2 GM/dL (11.7-16.9); MCH 26.9 pg (25.7-33.7); MCHC 33.5 g/dl (32.0-35.9); MEAN CELL VOLUME 80.4 fl (80-96); MEAN PLT VOLUME 8.3 fl (7.5-11.1); PLATELET COUNT 210 10^3/uL (134-434); RBC 4.15 M/mm3 (4.00-5.60); RDW 13.7 % (11.9-15.9); WHITE BLOOD COUNT 4.3 K/mm3 (4.0-10.0)
[2022-10-19 11:30] LABS: BLOOD UREA NITROGEN 10.9 mg/dL (7-18); CALCIUM 9.1 mg/dL (8.5-10.1)
[2022-10-19 11:31] LABS: ALBUMIN 3.5 g/dl (3.4-5.0); BILIRUBIN,TOTAL 0.4 mg/dL (0.2-1)
[2022-10-19 11:33] LABS: CREATININE 0.7 mg/dL (0.55-1.3)
[2022-10-19 11:35] LABS: TOT PROT 6.8 g/dl (6.4-8.2)
[2022-10-19] MEDS: METHOCARBAMOL 500 MG TABLET PO PRN (11:36)
[2022-10-19] MEDS: NICOTINE 21 MG/24 HOURS TOPICAL PATCH TD SCH (11:36)
[2022-10-19] MEDS: PRENATAL VITAMINS W/ FOLIC ACID TABLET (FP) PO SCH (11:37)
[2022-10-19] MEDS: diazePAM 5 MG TABLET PO SCH ×3 (11:41→23:24)
[2022-10-19] MEDS: IBUPROFEN 600 MG TABLET (FP) PO PRN (11:42)
[2022-10-19] MEDS: MELATONIN 5 MG TABLETS PO SCH (22:22)
[2022-10-19] MEDS: THIAMINE HCL 100 MG TABLET (FP) PO SCH (22:23)
[2022-10-20] MEDS ORDERED: BUPRENORPHINE HCL 150 MCG, BUPRENORPHINE HCL 75 MCG BC PRN
[2022-10-20] MEDS: diazePAM 5 MG TABLET PO SCH ×4 (05:57→22:15)
[2022-10-20] MEDS: BUPRENORPHINE HCL 150 MCG, BUPRENORPHINE HCL 75 MCG BC SCH ×2 (06:22→17:22)
[2022-10-20] MEDS: PRENATAL VITAMINS W/ FOLIC ACID TABLET (FP) PO SCH (10:05)
[2022-10-20] MEDS: NICOTINE 21 MG/24 HOURS TOPICAL PATCH TD SCH (10:06)
[2022-10-20] MEDS: THIAMINE HCL 100 MG TABLET (FP) PO SCH (22:15)
[2022-10-20] MEDS: MELATONIN 5 MG TABLETS PO SCH (22:16)
[2022-10-20] MEDS: cloNIDine HCL 0.1 MG TABLET PO PRN (23:25)
[2022-10-21] MEDS ORDERED: BUPRENORPHINE HCL 450 MCG FILM BC SCH (06:00)
[2022-10-21] MEDS: diazePAM 5 MG TABLET PO SCH ×3 (06:04→22:12)
[2022-10-21] MEDS: NICOTINE 21 MG/24 HOURS TOPICAL PATCH TD SCH (10:07)
[2022-10-21] MEDS: PRENATAL VITAMINS W/ FOLIC ACID TABLET (FP) PO SCH (10:07)
[2022-10-21] MEDS: METHOCARBAMOL 500 MG TABLET PO PRN ×2 (10:08→22:13)
[2022-10-21] MEDS: cloNIDine HCL 0.1 MG TABLET PO PRN (10:08)
[2022-10-21] MEDS ORDERED: BUPRENORPHINE/NALOXONE 2 MG/0.5 MG FILM PACKET SL ONE (12:29)
[2022-10-21] MEDS ORDERED: ALBUTEROL SO4 HFA INHALER IH PRN (15:18)
[2022-10-21] MEDS: ENALAPRIL MALEATE 10 MG TABLET PO SCH (15:42)
[2022-10-21] MEDS: EMTRICITAB/RILPIVIRI/TENOF ALA (ODEFSEY) TABLET PO SCH (15:43)
[2022-10-21] MEDS: FERROUS SO4 325 MG TABLET (FP) PO SCH (22:11)
[2022-10-21] MEDS: THIAMINE HCL 100 MG TABLET (FP) PO SCH (22:11)
[2022-10-21] MEDS: MELATONIN 5 MG TABLETS PO SCH (22:12)
[2022-10-22] MEDS: BUPRENORPHINE/NALOXONE 4 MG/1 MG FILM PACKET SL SCH ×2 (05:24→17:27)
[2022-10-22] MEDS: diazePAM 5 MG TABLET PO SCH ×2 (05:24→17:27)
[2022-10-22] MEDS: EMTRICITAB/RILPIVIRI/TENOF ALA (ODEFSEY) TABLET PO SCH (07:04)
[2022-10-22] MEDS: METHOCARBAMOL 500 MG TABLET PO PRN ×2 (10:17→22:53)
[2022-10-22] MEDS: cloNIDine HCL 0.1 MG TABLET PO PRN (10:17)
[2022-10-22] MEDS: NICOTINE 21 MG/24 HOURS TOPICAL PATCH TD SCH (10:17)
[2022-10-22] MEDS: ENALAPRIL MALEATE 10 MG TABLET PO SCH (10:17)
[2022-10-22] MEDS: FERROUS SO4 325 MG TABLET (FP) PO SCH ×2 (10:18→22:54)
[2022-10-22] MEDS: PRENATAL VITAMINS W/ FOLIC ACID TABLET (FP) PO SCH (10:18)
[2022-10-22] MEDS: IBUPROFEN 600 MG TABLET (FP) PO PRN (17:29)
[2022-10-22] MEDS: MELATONIN 5 MG TABLETS PO SCH (22:53)
[2022-10-22] MEDS: THIAMINE HCL 100 MG TABLET (FP) PO SCH (22:53)
[2022-10-23] MEDS ORDERED: BUPRENORPHINE/NALOXONE 8 MG/2 MG FILM PACKET SL ONE (06:00)
[2022-10-23] MEDS ORDERED: diazePAM 5 MG TABLET PO ONE (06:00)
[2022-10-23 07:23] VITALS: TEMP 97.5
[2022-10-23] MEDS: EMTRICITAB/RILPIVIRI/TENOF ALA (ODEFSEY) TABLET PO SCH (07:38)
[2022-10-23] MEDS: FERROUS SO4 325 MG TABLET (FP) PO SCH (09:07)
[2022-10-23] MEDS: ENALAPRIL MALEATE 10 MG TABLET PO SCH (09:07)
[2022-10-23] MEDS: PRENATAL VITAMINS W/ FOLIC ACID TABLET (FP) PO SCH (09:07)
[2022-10-23] MEDS: NICOTINE 21 MG/24 HOURS TOPICAL PATCH TD SCH (09:08)
[2022-10-23 09:29] VITALS: BP 144/88; PULSE 94; RESP 18
== END 2022-10-23 09:48 | disposition home or self-care (01) | DRG 773 ==
LOC: YASAS 14:39 → Y6N 20:34
PROVIDERS: ADMIT Allergy & Immunology; ATTEND Surgery
PROC: HZ2ZZZZ Detoxification Services for Substance Abuse Treatment (ICD-10-PCS; principal; 2022-10-18)
DX: F11.23 Opioid dependence with withdrawal (principal); F10.230 Alcohol dependence with withdrawal, uncomplicated; F14.20 Cocaine dependence, uncomplicated; F12.20 Cannabis dependence, uncomplicated; F17.210 Nicotine dependence, cigarettes, uncomplicated; B20 Human immunodeficiency virus [HIV] disease; I10 Essential (primary) hypertension; J45.20 Mild intermittent asthma, uncomplicated; R63.4 Abnormal weight loss; Z68.22 Body mass index [BMI] 22.0-22.9, adult; Z86.2 Personal history of diseases of the blood and blood-forming organs and certain disorders involving the immune mechanism; Z86.19 Personal history of other infectious and parasitic diseases
CPT/HCPCS: 36415; 80053; 85027; 86780; C9803-CS; Q0162; U0003; U0005

== ENCOUNTER 2023-03-01 17:25 | Inpatient (IN) | payer OTHER ==
[2023-03-01 20:25] VITALS: BMI 23.3
[2023-03-01] MEDS ORDERED: IBUPROFEN 400 MG TABLET (FP) PO PRN (22:17)
[2023-03-01] MEDS ORDERED: ACETAMINOPHEN 325 MG TABLET (FP) PO PRN (22:17)
[2023-03-01] MEDS ORDERED: ONDANSETRON *ODT* 4 MG TABLET SL PRN (22:17)
[2023-03-01] MEDS ORDERED: LOPERAMIDE HCL 2 MG CAPSULE PO PRN (22:17)
[2023-03-01] MEDS ORDERED: NALOXONE HCL 0.4 MG/ML VIAL IM PRN (22:17)
[2023-03-01] MEDS ORDERED: P-EPHED 60MG/TRIPROLIDI 2.5MG TABLET PO PRN (22:17)
[2023-03-01] MEDS ORDERED: IBUPROFEN 600 MG TABLET (FP) PO PRN (22:17)
[2023-03-01] MEDS ORDERED: DICYCLOMINE HCL 10 MG CAPSULE PO PRN (22:17)
[2023-03-01] MEDS ORDERED: NICOTINE POLACRILEX 2 MG GUM BUC PRN (22:17)
[2023-03-01] MEDS ORDERED: BENZONATATE 200 MG CAPSULE PO PRN (22:17)
[2023-03-01] MEDS ORDERED: MAG HYDROX/AL HYDROX/SIMETH 30 ML UNIT-DOSE CUP PO PRN (22:17)
[2023-03-01] MEDS ORDERED: BISMUTH SUBSALICYLATE 524 MG/30 ML PO PRN (22:17)
[2023-03-01] MEDS ORDERED: NALOXONE HCL (KLOXXADO) 8 MG SPRAY NS PRN (22:17)
[2023-03-01] MEDS ORDERED: guaiFENesin 600 MG TABLET.ER (FP) PO PRN (22:17)
[2023-03-01] MEDS ORDERED: BENZOCAINE/MENTHOL (CHLORASEPTIC ) LOZENGE MM PRN (22:17)
[2023-03-01] MEDS ORDERED: POLYETHYLENE GLYCOL (HEALTHYLAX) 3350 17 GM PACKET PO PRN (22:17)
[2023-03-01] MEDS ORDERED: MAGNESIUM HYDROX 2400MG/30ML ORAL SUSPENSION 30 ML CUP PO PRN (22:17)
[2023-03-01] MEDS ORDERED: ALBUTEROL SO4 HFA INHALER IH PRN (22:20)
[2023-03-01] MEDS ORDERED: ALBUTEROL SO4 0.083% IH SOL 2.5 MG/3 ML VIAL.NEB. NEB PRN (22:36)
[2023-03-02] MEDS ORDERED: chlordiazePOXIDE HCL 25 MG CAPSULE PO PRN (09:20)
[2023-03-02] MEDS: chlordiazePOXIDE HCL 25 MG CAPSULE PO SCH ×3 (10:27→22:44)
[2023-03-02] MEDS: PRENATAL VITAMINS W/ FOLIC ACID TABLET (FP) PO SCH (10:27)
[2023-03-02 10:38] LABS: HEMATOCRIT 33.6 % (35.4-49); HEMOGLOBIN 11.1 GM/dL (11.7-16.9); MCHC 32.9 g/dl (32.0-35.9); MEAN CELL VOLUME 81.9 fl (80-96); MEAN PLT VOLUME 7.7 fl (7.5-11.1); PLATELET COUNT 268 10^3/uL (134-434); RDW 14.7 % (11.9-15.9); WHITE BLOOD COUNT 4.8 K/mm3 (4.0-10.0)
[2023-03-02 10:45] LABS: POTASSIUM 4.3 mmol/L (3.5-5.1)
[2023-03-02 10:51] LABS: CALCIUM 8.9 mg/dL (8.5-10.1)
[2023-03-02 10:53] LABS: ALBUMIN 3.4 g/dl (3.4-5.0); BLOOD UREA NITROGEN 10.5 mg/dL (7-18)
[2023-03-02 10:54] LABS: CREATININE 0.6 mg/dL (0.55-1.3)
[2023-03-02 10:56] LABS: BILIRUBIN,TOTAL 0.4 mg/dL (0.2-1); TOT PROT 6.5 g/dl (6.4-8.2)
[2023-03-02] MEDS: THIAMINE HCL 100 MG TABLET (FP) PO SCH (22:44)
[2023-03-02] MEDS: MELATONIN 5 MG TABLETS PO SCH (22:44)
[2023-03-03] MEDS: chlordiazePOXIDE HCL 25 MG CAPSULE PO SCH ×4 (06:00→23:01)
[2023-03-03] MEDS: PRENATAL VITAMINS W/ FOLIC ACID TABLET (FP) PO SCH (10:18)
[2023-03-03] MEDS: ENALAPRIL MALEATE 10 MG TABLET PO SCH (15:37)
[2023-03-03] MEDS: BUPRENORPHINE/NALOXONE 8 MG/2 MG FILM PACKET SL SCH ×2 (15:51→22:31)
[2023-03-03] MEDS: METHOCARBAMOL 500 MG TABLET PO PRN (22:31)
[2023-03-03] MEDS: THIAMINE HCL 100 MG TABLET (FP) PO SCH (22:31)
[2023-03-03] MEDS: MELATONIN 5 MG TABLETS PO SCH (22:31)
[2023-03-03] MEDS: hydrOXYzine PAMOATE 25 MG CAPSULE (FP) PO PRN (22:31)
[2023-03-04] MEDS: chlordiazePOXIDE HCL 25 MG CAPSULE PO SCH ×4 (05:49→22:31)
[2023-03-04] MEDS: BUPRENORPHINE/NALOXONE 8 MG/2 MG FILM PACKET SL SCH ×3 (05:49→22:08)
[2023-03-04] MEDS: PRENATAL VITAMINS W/ FOLIC ACID TABLET (FP) PO SCH (09:43)
[2023-03-04] MEDS: ENALAPRIL MALEATE 10 MG TABLET PO SCH (09:43)
[2023-03-04] MEDS: MELATONIN 5 MG TABLETS PO SCH (22:08)
[2023-03-04] MEDS: THIAMINE HCL 100 MG TABLET (FP) PO SCH (22:08)
[2023-03-05] MEDS ORDERED: chlordiazePOXIDE HCL 10 MG CAPSULE PO PRN
[2023-03-05] MEDS: chlordiazePOXIDE HCL 10 MG CAPSULE PO SCH ×3 (05:27→10:36)
[2023-03-05] MEDS: BUPRENORPHINE/NALOXONE 8 MG/2 MG FILM PACKET SL SCH ×2 (05:27→13:06)
[2023-03-05] MEDS: hydrOXYzine PAMOATE 25 MG CAPSULE (FP) PO PRN (05:43)
[2023-03-05] MEDS: METHOCARBAMOL 500 MG TABLET PO PRN (05:43)
[2023-03-05] MEDS: ENALAPRIL MALEATE 10 MG TABLET PO SCH (10:11)
[2023-03-05] MEDS: PRENATAL VITAMINS W/ FOLIC ACID TABLET (FP) PO SCH (10:11)
[2023-03-05 13:04] VITALS: BP 142/88; PULSE 79; RESP 19; TEMP 97.3
[2023-03-06] MEDS ORDERED: chlordiazePOXIDE HCL 10 MG CAPSULE PO SCH (05:00)
[2023-03-07] MEDS ORDERED: chlordiazePOXIDE HCL 10 MG CAPSULE PO ONE (05:00)
== END 2023-03-05 15:28 | disposition left against medical advice (07) | DRG 770 ==
LOC: YASAS 17:25 → Y3N 23:37
PROVIDERS: ADMIT Allergy & Immunology; ATTEND Surgery
PROC: HZ2ZZZZ Detoxification Services for Substance Abuse Treatment (ICD-10-PCS; principal; 2023-03-01)
DX: F10.230 Alcohol dependence with withdrawal, uncomplicated (principal); F14.20 Cocaine dependence, uncomplicated; F12.20 Cannabis dependence, uncomplicated; F17.210 Nicotine dependence, cigarettes, uncomplicated; B20 Human immunodeficiency virus [HIV] disease; I10 Essential (primary) hypertension; J45.20 Mild intermittent asthma, uncomplicated; M54.50 Low back pain, unspecified; G89.29 Other chronic pain; Z86.19 Personal history of other infectious and parasitic diseases
CPT/HCPCS: 36415; 80053; 85027; 86780; 87635; 87811

== ENCOUNTER 2023-06-27 12:51 | Inpatient (IN) | payer OTHER ==
[2023-06-27 16:10] VITALS: BMI 24.7
[2023-06-27] MEDS ORDERED: NALOXONE HCL (KLOXXADO) 8 MG SPRAY NS PRN (16:53)
[2023-06-27] MEDS ORDERED: guaiFENesin 600 MG TABLET.ER (FP) PO PRN (16:53)
[2023-06-27] MEDS ORDERED: BENZOCAINE/MENTHOL (CHLORASEPTIC ) LOZENGE MM PRN (16:53)
[2023-06-27] MEDS ORDERED: diazePAM 5 MG TABLET PO PRN (16:53)
[2023-06-27] MEDS ORDERED: LOPERAMIDE HCL 2 MG CAPSULE PO PRN (16:53)
[2023-06-27] MEDS ORDERED: BISMUTH SUBSALICYLATE 524 MG/30 ML PO PRN (16:53)
[2023-06-27] MEDS ORDERED: hydrOXYzine PAMOATE 25 MG CAPSULE (FP) PO PRN (16:53)
[2023-06-27] MEDS ORDERED: DICYCLOMINE HCL 10 MG CAPSULE PO PRN (16:53)
[2023-06-27] MEDS ORDERED: MAGNESIUM HYDROX 2400MG/30ML ORAL SUSPENSION 30 ML CUP PO PRN (16:53)
[2023-06-27] MEDS ORDERED: IBUPROFEN 400 MG TABLET (FP) PO PRN (16:53)
[2023-06-27] MEDS ORDERED: IBUPROFEN 600 MG TABLET (FP) PO PRN (16:53)
[2023-06-27] MEDS ORDERED: BENZONATATE 200 MG CAPSULE PO PRN (16:53)
[2023-06-27] MEDS ORDERED: ACETAMINOPHEN 325 MG TABLET (FP) PO PRN (16:53)
[2023-06-27] MEDS ORDERED: MAG HYDROX/AL HYDROX/SIMETH 30 ML UNIT-DOSE CUP PO PRN (16:53)
[2023-06-27] MEDS ORDERED: NALOXONE HCL 0.4 MG/ML VIAL IM PRN (16:53)
[2023-06-27] MEDS ORDERED: POLYETHYLENE GLYCOL (HEALTHYLAX) 3350 17 GM PACKET PO PRN (16:53)
[2023-06-27] MEDS ORDERED: ONDANSETRON *ODT* 4 MG TABLET SL PRN (16:53)
[2023-06-27] MEDS ORDERED: diazePAM 5 MG TABLET ONE (17:10)
[2023-06-27] MEDS: diazePAM 5 MG TABLET PO SCH ×2 (17:13→22:21)
[2023-06-27] MEDS ORDERED: ALBUTEROL SO4 HFA INHALER IH PRN (18:49)
[2023-06-27] MEDS: THIAMINE HCL 100 MG TABLET (FP) PO SCH (22:20)
[2023-06-27] MEDS: MELATONIN 5 MG TABLETS PO SCH (22:21)
[2023-06-28] MEDS: diazePAM 5 MG TABLET PO SCH ×4 (05:31→22:20)
[2023-06-28] MEDS ORDERED: EMTRICITAB/RILPIVIRINE/TENOFOV 1 EACH TABLET PO SCH (08:00)
[2023-06-28] MEDS: EMTRICITAB/RILPIVIRI/TENOF ALA (ODEFSEY) TABLET PO SCH (09:09)
[2023-06-28] MEDS: PRENATAL VITAMINS W/ FOLIC ACID TABLET (FP) PO SCH (10:33)
[2023-06-28] MEDS: ENALAPRIL MALEATE 10 MG TABLET PO SCH (10:34)
[2023-06-28] MEDS: METHOCARBAMOL 500 MG TABLET PO PRN (10:35)
[2023-06-28 10:37] LABS: CHLORIDE 108 mmol/L (98-107); POTASSIUM 4.1 mmol/L (3.5-5.1); SODIUM 141 mmol/L (136-145)
[2023-06-28 10:52] LABS: HEMATOCRIT 32.9 % (35.4-49); HEMOGLOBIN 10.9 GM/dL (11.7-16.9); MCH 27.5 pg (25.7-33.7); MEAN CELL VOLUME 83.4 fl (80-96); MEAN PLT VOLUME 7.9 fl (7.5-11.1); PLATELET COUNT 263 10^3/uL (134-434); RBC 3.95 M/mm3 (4.00-5.60); RDW 14.8 % (11.9-15.9); WHITE BLOOD COUNT 3.7 K/mm3 (4.0-10.0)
[2023-06-28 11:15] LABS: CALCIUM 8.7 mg/dL (8.5-10.1)
[2023-06-28 11:16] LABS: ALBUMIN 3.2 g/dl (3.4-5.0); ANION GAP 5 mmol/L (4-13); BLOOD UREA NITROGEN 10.1 mg/dL (7-18); CO2 29 mmol/L (21-32); GLUCOSE,RANDOM 100 mg/dL (74-106)
[2023-06-28 11:18] LABS: ALK PHOS 98 U/L (45-117); CREATININE 0.8 mg/dL (0.55-1.3); SGOT/AST 25 U/L (15-37); SGPT/ALT 26 U/L (13-61)
[2023-06-28 11:19] LABS: BILIRUBIN,TOTAL 0.3 mg/dL (0.2-1); TOT PROT 6.1 g/dl (6.4-8.2)
[2023-06-28] MEDS ORDERED: FLU VACCINE (FLULAVAL) PF 60 MCG/0.5 ML SYRINGE 2023-2024 IM ONE (12:00)
[2023-06-28] MEDS: BUPRENORPHINE/NALOXONE 8 MG/2 MG FILM PACKET SL SCH ×2 (13:59→22:19)
[2023-06-28] MEDS: MELATONIN 5 MG TABLETS PO SCH (22:20)
[2023-06-28] MEDS: THIAMINE HCL 100 MG TABLET (FP) PO SCH (22:20)
[2023-06-29] MEDS: diazePAM 5 MG TABLET PO SCH ×3 (06:06→22:35)
[2023-06-29] MEDS: BUPRENORPHINE/NALOXONE 8 MG/2 MG FILM PACKET SL SCH ×3 (06:07→22:32)
[2023-06-29] MEDS: EMTRICITAB/RILPIVIRI/TENOF ALA (ODEFSEY) TABLET PO SCH (08:04)
[2023-06-29] MEDS: ENALAPRIL MALEATE 10 MG TABLET PO SCH (10:50)
[2023-06-29] MEDS: METHOCARBAMOL 500 MG TABLET PO PRN ×2 (10:50→22:32)
[2023-06-29] MEDS: PRENATAL VITAMINS W/ FOLIC ACID TABLET (FP) PO SCH (10:50)
[2023-06-29] MEDS: MELATONIN 5 MG TABLETS PO SCH (22:31)
[2023-06-29] MEDS: THIAMINE HCL 100 MG TABLET (FP) PO SCH (22:32)
[2023-06-30] MEDS: BUPRENORPHINE/NALOXONE 8 MG/2 MG FILM PACKET SL SCH ×3 (05:46→22:22)
[2023-06-30] MEDS: diazePAM 5 MG TABLET PO SCH ×2 (05:46→18:11)
[2023-06-30] MEDS: EMTRICITAB/RILPIVIRI/TENOF ALA (ODEFSEY) TABLET PO SCH (07:12)
[2023-06-30] MEDS: PRENATAL VITAMINS W/ FOLIC ACID TABLET (FP) PO SCH (10:26)
[2023-06-30] MEDS: ENALAPRIL MALEATE 10 MG TABLET PO SCH (10:27)
[2023-06-30] MEDS: THIAMINE HCL 100 MG TABLET (FP) PO SCH (22:21)
[2023-06-30] MEDS: MELATONIN 5 MG TABLETS PO SCH (22:21)
[2023-07-01] MEDS: BUPRENORPHINE/NALOXONE 8 MG/2 MG FILM PACKET SL SCH (05:03)
[2023-07-01] MEDS ORDERED: diazePAM 5 MG TABLET PO ONE (06:00)
[2023-07-01 06:54] VITALS: TEMP 97.7
[2023-07-01] MEDS: EMTRICITAB/RILPIVIRI/TENOF ALA (ODEFSEY) TABLET PO SCH (07:16)
[2023-07-01 09:12] VITALS: BP 133/97; PULSE 97; RESP 18
[2023-07-01] MEDS: ENALAPRIL MALEATE 10 MG TABLET PO SCH (09:30)
[2023-07-01] MEDS: PRENATAL VITAMINS W/ FOLIC ACID TABLET (FP) PO SCH (09:30)
== END 2023-07-01 10:02 | disposition home or self-care (01) | DRG 773 ==
LOC: YASAS 12:51 → Y6N 16:48
PROVIDERS: ADMIT Allergy & Immunology; ATTEND Surgery
PROC: HZ2ZZZZ Detoxification Services for Substance Abuse Treatment (ICD-10-PCS; principal; 2023-06-27)
DX: F10.230 Alcohol dependence with withdrawal, uncomplicated (principal); F11.20 Opioid dependence, uncomplicated; F14.20 Cocaine dependence, uncomplicated; F17.210 Nicotine dependence, cigarettes, uncomplicated; U07.1 COVID-19; Z21 Asymptomatic human immunodeficiency virus [HIV] infection status; I10 Essential (primary) hypertension; J45.20 Mild intermittent asthma, uncomplicated; Z86.19 Personal history of other infectious and parasitic diseases; Z86.59 Personal history of other mental and behavioral disorders
CPT/HCPCS: 36415; 80053; 80307; 85027; 86780; 87635; 90686; G0008

== ENCOUNTER 2023-11-02 13:06 | Inpatient (IN) | payer OTHER ==
[2023-11-02] MEDS ORDERED: BISMUTH SUBSALICYLATE 262 MG/15 ML BTL PO PRN (14:23)
[2023-11-02] MEDS ORDERED: guaiFENesin 600 MG TABLET.ER (FP) PO PRN (14:23)
[2023-11-02] MEDS ORDERED: BENZONATATE 200 MG CAPSULE PO PRN (14:23)
[2023-11-02] MEDS ORDERED: MAG HYDROX/AL HYDROX/SIMETH 30 ML UNIT-DOSE CUP PO PRN (14:23)
[2023-11-02] MEDS ORDERED: ACETAMINOPHEN 325 MG TABLET (FP) PO PRN (14:23)
[2023-11-02] MEDS ORDERED: NALOXONE HCL 0.4 MG/ML VIAL IM PRN (14:23)
[2023-11-02] MEDS ORDERED: DICYCLOMINE HCL 10 MG CAPSULE PO PRN (14:23)
[2023-11-02] MEDS ORDERED: POLYETHYLENE GLYCOL (HEALTHYLAX) 3350 17 GM PACKET PO PRN (14:23)
[2023-11-02] MEDS ORDERED: LOPERAMIDE HCL 2 MG CAPSULE PO PRN (14:23)
[2023-11-02] MEDS ORDERED: IBUPROFEN 400 MG TABLET (FP) PO PRN (14:23)
[2023-11-02] MEDS ORDERED: BENZOCAINE/MENTHOL (CHLORASEPTIC ) LOZENGE MM PRN (14:23)
[2023-11-02] MEDS ORDERED: NALOXONE HCL (KLOXXADO) 8 MG SPRAY NS PRN (14:23)
[2023-11-02] MEDS ORDERED: MAGNESIUM HYDROX 2400MG/30ML ORAL SUSPENSION 30 ML CUP PO PRN (14:23)
[2023-11-02] MEDS ORDERED: ALBUTEROL SO4 HFA INHALER IH PRN (14:26)
[2023-11-02 14:35] VITALS: BMI 23.5
[2023-11-02] MEDS ORDERED: LORazepam 1 MG TABLET ONE (14:57)
[2023-11-02] MEDS ORDERED: NICOTINE 21 MG/24 HOURS TOPICAL PATCH ONE (14:58)
[2023-11-02] MEDS ORDERED: PRENATAL VITAMINS W/ FOLIC ACID TABLET (FP) PO ONE (14:58)
[2023-11-02] MEDS: NICOTINE 21 MG/24 HOURS TOPICAL PATCH TD SCH (15:00)
[2023-11-02] MEDS: IBUPROFEN 600 MG TABLET (FP) PO PRN (15:05)
[2023-11-02] MEDS: LORazepam 1 MG TABLET PO PRN (15:06)
[2023-11-02] MEDS: PRENATAL VITAMINS W/ FOLIC ACID TABLET (FP) PO SCH (15:06)
[2023-11-02] MEDS: LORazepam 2 MG TABLET PO SCH (17:26)
[2023-11-02] MEDS: FERROUS SO4 325 MG TABLET (FP) PO SCH (22:40)
[2023-11-02] MEDS: MELATONIN 5 MG TABLETS PO SCH (22:41)
[2023-11-02] MEDS: BUPRENORPHINE/NALOXONE 8 MG/2 MG FILM PACKET SL SCH (22:41)
[2023-11-02] MEDS: THIAMINE 100 MG TABLET PO SCH (22:42)
[2023-11-03] MEDS: EMTRICITAB/RILPIVIRI/TENOF ALA (ODEFSEY) TABLET PO SCH (07:41)
[2023-11-03] MEDS: ENALAPRIL MALEATE 10 MG TABLET PO SCH (10:48)
[2023-11-03 11:54] LABS: CHLORIDE 107 mmol/L (98-107); POTASSIUM 4.4 mmol/L (3.5-5.1); SODIUM 138 mmol/L (136-145)
[2023-11-03 11:55] LABS: HEMATOCRIT 44.6 % (35.4-49); HEMOGLOBIN 14.9 GM/dL (11.7-16.9); MCH 27.2 pg (25.7-33.7); MCHC 33.4 g/dl (32.0-35.9); MEAN CELL VOLUME 81.5 fl (80-96); MEAN PLT VOLUME 8.2 fl (7.5-11.1); PLATELET COUNT 284 10^3/uL (134-434); RBC 5.47 M/mm3 (4.00-5.60); RDW 15.2 % (11.9-15.9); WHITE BLOOD COUNT 4.7 K/mm3 (4.0-10.0)
[2023-11-03 11:56] LABS: ALBUMIN 3.3 g/dl (3.4-5.0); ANION GAP 4 mmol/L (4-13); CALCIUM 8.9 mg/dL (8.5-10.1); CO2 28 mmol/L (21-32); GLUCOSE,RANDOM 108 mg/dL (74-106)
[2023-11-03 11:57] LABS: BLOOD UREA NITROGEN 11.3 mg/dL (7-18)
[2023-11-03 11:59] LABS: CREATININE 0.7 mg/dL (0.55-1.3); SGOT/AST 26 U/L (15-37); SGPT/ALT 32 U/L (13-61)
[2023-11-03] MEDS ORDERED: PNEUMOC 20-VAL CONJ-DIP CRM/PF 0.5 ML SYRINGE IM ONE (12:00)
[2023-11-03 12:01] LABS: BILIRUBIN,TOTAL 0.3 mg/dL (0.2-1); TOT PROT 6.6 g/dl (6.4-8.2)
[2023-11-03 12:02] LABS: ALK PHOS 92 U/L (45-117)
[2023-11-03] MEDS: LACTULOSE 20 GM/30 ML UDC (FOR ORAL USE ONLY) PO SCH (13:28)
[2023-11-03] MEDS: ONDANSETRON *ODT* 4 MG TABLET SL PRN (22:56)
[2023-11-04] MEDS: LORazepam 1 MG TABLET PO SCH (05:04)
[2023-11-04] MEDS: hydrOXYzine PAMOATE 25 MG CAPSULE (FP) PO PRN (17:17)
[2023-11-04] MEDS: METHOCARBAMOL 500 MG TABLET PO PRN (17:17)
[2023-11-04] MEDS: cloNIDine HCL 0.1 MG TABLET PO PRN (18:15)
[2023-11-05] MEDS ORDERED: LORazepam 0.5 MG TABLET PO PRN
[2023-11-05] MEDS: LORazepam 0.5 MG TABLET PO SCH (05:48)
[2023-11-05 21:26] VITALS: RESP 16
[2023-11-06] MEDS: LORazepam 0.5 MG TABLET PO ONE (05:25)
[2023-11-06 09:20] VITALS: BP 140/88; PULSE 93; TEMP 97.6
== END 2023-11-06 09:13 | disposition home or self-care (01) | DRG 774 ==
LOC: YASAS 13:06 → Y6N 14:56
PROVIDERS: ADMIT Allergy & Immunology; ATTEND Surgery
PROC: HZ2ZZZZ Detoxification Services for Substance Abuse Treatment (ICD-10-PCS; principal; 2023-11-02)
DX: F10.230 Alcohol dependence with withdrawal, uncomplicated (principal); F14.20 Cocaine dependence, uncomplicated; F12.20 Cannabis dependence, uncomplicated; F17.213 Nicotine dependence, cigarettes, with withdrawal; Z21 Asymptomatic human immunodeficiency virus [HIV] infection status; D50.9 Iron deficiency anemia, unspecified; I10 Essential (primary) hypertension; B18.2 Chronic viral hepatitis C; Z79.899 Other long term (current) drug therapy
CPT/HCPCS: 36415; 80053; 80305; 80307; 82140; 85027; 86780; 93005; 93010; Q0162

== ENCOUNTER 2024-01-08 16:49 | Inpatient (IN) | payer OTHER ==
[2024-01-08 18:03] VITALS: BMI 21.7
[2024-01-08] MEDS ORDERED: BENZOCAINE/MENTHOL (CHLORASEPTIC ) LOZENGE MM PRN (19:21)
[2024-01-08] MEDS ORDERED: IBUPROFEN 400 MG TABLET (FP) PO PRN (19:21)
[2024-01-08] MEDS ORDERED: ONDANSETRON *ODT* 4 MG TABLET SL PRN (19:21)
[2024-01-08] MEDS ORDERED: NALOXONE HCL 0.4 MG/ML VIAL IM PRN (19:21)
[2024-01-08] MEDS ORDERED: NALOXONE (NARCAN) HCL 4 MG/0.1 ML SPRAY NS PRN (19:21)
[2024-01-08] MEDS ORDERED: POLYETHYLENE GLYCOL (HEALTHYLAX) 3350 17 GM PACKET PO PRN (19:21)
[2024-01-08] MEDS ORDERED: MAGNESIUM HYDROX 2400MG/30ML ORAL SUSPENSION 30 ML CUP PO PRN (19:21)
[2024-01-08] MEDS ORDERED: NICOTINE POLACRILEX 2 MG LOZENGE BC PRN (19:21)
[2024-01-08] MEDS ORDERED: LOPERAMIDE HCL 2 MG CAPSULE PO PRN (19:21)
[2024-01-08] MEDS ORDERED: MAG HYDROX/AL HYDROX/SIMETH 30 ML UNIT-DOSE CUP PO PRN (19:21)
[2024-01-08] MEDS ORDERED: P-EPHED 60MG/TRIPROLIDI 2.5MG TABLET PO PRN (19:21)
[2024-01-08] MEDS ORDERED: guaiFENesin 600 MG TABLET.ER (FP) PO PRN (19:21)
[2024-01-08] MEDS ORDERED: BENZONATATE 200 MG CAPSULE PO PRN (19:21)
[2024-01-08] MEDS ORDERED: IBUPROFEN 600 MG TABLET (FP) PO PRN (19:21)
[2024-01-08] MEDS ORDERED: NICOTINE POLACRILEX 2 MG GUM BUC PRN (19:21)
[2024-01-08] MEDS ORDERED: ALBUTEROL SO4 HFA INHALER IH PRN (19:23)
[2024-01-08] MEDS: MELATONIN 5 MG TABLETS PO SCH (22:17)
[2024-01-08] MEDS: THIAMINE 100 MG TABLET PO SCH (22:17)
[2024-01-08] MEDS: diazePAM 5 MG TABLET PO SCH (22:18)
[2024-01-08] MEDS: SULFAMETHOXAZOLE/TRIMETHOPRIM 800MG/160MG D.S. TABLET PO SCH (22:18)
[2024-01-09] MEDS: PRENATAL VITAMINS W/ FOLIC ACID TABLET (FP) PO SCH (10:18)
[2024-01-09] MEDS: EMTRICITAB/RILPIVIRI/TENOF ALA (ODEFSEY) TABLET PO SCH (11:03)
[2024-01-09] MEDS: EMTRICITAB/RILPIVIRINE/TENOFOV 1 EACH TABLET PO SCH (11:06)
[2024-01-09 11:19] LABS: CHLORIDE 106 mmol/L (98-107); POTASSIUM 4.8 mmol/L (3.5-5.1); SODIUM 141 mmol/L (136-145)
[2024-01-09 11:22] LABS: HEMOGLOBIN 10.8 GM/dL (11.7-16.9); MCH 27.2 pg (25.7-33.7); MCHC 32.8 g/dl (32.0-35.9); MEAN CELL VOLUME 82.9 fl (80-96); MEAN PLT VOLUME 8.2 fl (7.5-11.1); PLATELET COUNT 245 10^3/uL (134-434); RBC 3.98 M/mm3 (4.00-5.60); RDW 15.2 % (11.9-15.9); WHITE BLOOD COUNT 3.9 K/mm3 (4.0-10.0)
[2024-01-09] MEDS: BUPRENORPHINE/NALOXONE 8 MG/2 MG FILM PACKET SL SCH (11:24)
[2024-01-09 11:29] LABS: CREATININE 0.7 mg/dL (0.55-1.3); SGOT/AST 35 U/L (15-37)
[2024-01-09 11:31] LABS: SGPT/ALT 40 U/L (13-61)
[2024-01-09 11:32] LABS: ALK PHOS 99 U/L (45-117); BILIRUBIN,TOTAL 0.2 mg/dL (0.2-1); TOT PROT 6.5 g/dl (6.4-8.2)
[2024-01-09 11:33] LABS: ALBUMIN 3.4 g/dl (3.4-5.0); CALCIUM 8.7 mg/dL (8.5-10.1)
[2024-01-09 11:34] LABS: ANION GAP 3 mmol/L (4-13); BLOOD UREA NITROGEN 12.2 mg/dL (7-18); CO2 32 mmol/L (21-32); GLUCOSE,RANDOM 82 mg/dL (74-106)
[2024-01-09] MEDS: BISMUTH SUBSALICYLATE 524 MG/30 ML PO PRN (17:26)
[2024-01-09] MEDS: DICYCLOMINE HCL 10 MG CAPSULE PO PRN (17:26)
[2024-01-09] MEDS: ACETAMINOPHEN 325 MG TABLET (FP) PO PRN (17:27)
[2024-01-10] MEDS: diazePAM 5 MG TABLET PO SCH (05:46)
[2024-01-10] MEDS: diazePAM 5 MG TABLET PO PRN (18:12)
[2024-01-10] MEDS: METHOCARBAMOL 500 MG TABLET PO PRN (22:34)
[2024-01-11] MEDS: diazePAM 5 MG TABLET PO SCH (05:57)
[2024-01-11] MEDS: hydrOXYzine PAMOATE 25 MG CAPSULE (FP) PO PRN (05:58)
[2024-01-11 21:14] VITALS: RESP 18
[2024-01-12] MEDS: diazePAM 5 MG TABLET PO ONE (05:37)
[2024-01-12 08:37] VITALS: BP 110/71; PULSE 100; TEMP 96.9
== END 2024-01-12 09:25 | disposition other institution (70) | DRG 774 ==
LOC: YASAS 16:49 → Y3N 20:15
PROVIDERS: ADMIT Allergy & Immunology; ATTEND Surgery
PROC: HZ2ZZZZ Detoxification Services for Substance Abuse Treatment (ICD-10-PCS; principal; 2024-01-08)
DX: F10.230 Alcohol dependence with withdrawal, uncomplicated (principal); F14.20 Cocaine dependence, uncomplicated; F12.20 Cannabis dependence, uncomplicated; F15.20 Other stimulant dependence, uncomplicated; F17.210 Nicotine dependence, cigarettes, uncomplicated; Z21 Asymptomatic human immunodeficiency virus [HIV] infection status; I10 Essential (primary) hypertension; J45.909 Unspecified asthma, uncomplicated; B18.2 Chronic viral hepatitis C
CPT/HCPCS: 36415; 80053; 80305; 80307; 85027; 86780

== ENCOUNTER 2024-02-09 19:36 | Inpatient (IN) | payer OTHER ==
[2024-02-09 20:07] VITALS: BMI 21.7
[2024-02-09] MEDS ORDERED: MAGNESIUM HYDROX 2400MG/30ML ORAL SUSPENSION 30 ML CUP PO PRN (21:10)
[2024-02-09] MEDS ORDERED: BENZOCAINE/MENTHOL (CHLORASEPTIC ) LOZENGE MM PRN (21:10)
[2024-02-09] MEDS ORDERED: IBUPROFEN 400 MG TABLET (FP) PO PRN (21:10)
[2024-02-09] MEDS ORDERED: hydrOXYzine PAMOATE 25 MG CAPSULE (FP) PO PRN (21:10)
[2024-02-09] MEDS ORDERED: NALOXONE (NARCAN) HCL 4 MG/0.1 ML SPRAY NS PRN (21:10)
[2024-02-09] MEDS ORDERED: DICYCLOMINE HCL 10 MG CAPSULE PO PRN (21:10)
[2024-02-09] MEDS ORDERED: NALOXONE HCL 0.4 MG/ML VIAL IM PRN (21:10)
[2024-02-09] MEDS ORDERED: BENZONATATE 200 MG CAPSULE PO PRN (21:10)
[2024-02-09] MEDS ORDERED: guaiFENesin 600 MG TABLET.ER (FP) PO PRN (21:10)
[2024-02-09] MEDS ORDERED: NICOTINE POLACRILEX 2 MG GUM BUC PRN (21:10)
[2024-02-09] MEDS ORDERED: LOPERAMIDE HCL 2 MG CAPSULE PO PRN (21:10)
[2024-02-09] MEDS ORDERED: POLYETHYLENE GLYCOL (HEALTHYLAX) 3350 17 GM PACKET PO PRN (21:10)
[2024-02-09] MEDS ORDERED: BISMUTH SUBSALICYLATE 524 MG/30 ML PO PRN (21:10)
[2024-02-09] MEDS ORDERED: IBUPROFEN 600 MG TABLET (FP) PO PRN (21:10)
[2024-02-09] MEDS ORDERED: MAG HYDROX/AL HYDROX/SIMETH 30 ML UNIT-DOSE CUP PO PRN (21:10)
[2024-02-09] MEDS ORDERED: ONDANSETRON *ODT* 4 MG TABLET SL PRN (21:10)
[2024-02-09] MEDS: MELATONIN 5 MG TABLETS PO SCH (22:00)
[2024-02-09] MEDS: THIAMINE 100 MG TABLET PO SCH (22:00)
[2024-02-10] MEDS ORDERED: LORazepam 1 MG TABLET PO PRN (09:48)
[2024-02-10] MEDS ORDERED: ALBUTEROL SO4 HFA INHALER IH PRN (09:48)
[2024-02-10] MEDS ORDERED: LORazepam 2 MG TABLET ONE (10:05)
[2024-02-10] MEDS ORDERED: NICOTINE 21 MG/24 HOURS TOPICAL PATCH ONE (10:05)
[2024-02-10 10:35] LABS: HEMATOCRIT 35.7 % (35.4-49); HEMOGLOBIN 11.6 GM/dL (11.7-16.9); MCH 26.9 pg (25.7-33.7); MCHC 32.6 g/dl (32.0-35.9); MEAN CELL VOLUME 82.5 fl (80-96); MEAN PLT VOLUME 7.9 fl (7.5-11.1); PLATELET COUNT 208 10^3/uL (134-434); RBC 4.33 M/mm3 (4.00-5.60); RDW 15.4 % (11.9-15.9); WHITE BLOOD COUNT 5.2 K/mm3 (4.0-10.0)
[2024-02-10 10:38] LABS: CHLORIDE 104 mmol/L (98-107); POTASSIUM 4.6 mmol/L (3.5-5.1); SODIUM 137 mmol/L (136-145)
[2024-02-10 10:46] LABS: ALBUMIN 3.6 g/dl (3.4-5.0); ANION GAP 7 mmol/L (4-13); BLOOD UREA NITROGEN 12.1 mg/dL (7-18); CO2 26 mmol/L (21-32); GLUCOSE,RANDOM 100 mg/dL (74-106)
[2024-02-10 10:49] LABS: CREATININE 0.6 mg/dL (0.55-1.3); SGPT/ALT 27 U/L (13-61)
[2024-02-10 10:50] LABS: BILIRUBIN,TOTAL 0.6 mg/dL (0.2-1); TOT PROT 7.4 g/dl (6.4-8.2)
[2024-02-10 10:51] LABS: ALK PHOS 103 U/L (45-117)
[2024-02-10 10:53] LABS: SGOT/AST 25 U/L (15-37)
[2024-02-10] MEDS: PRENATAL VITAMINS W/ FOLIC ACID TABLET (FP) PO SCH (10:55)
[2024-02-10] MEDS: NICOTINE 21 MG/24 HOURS TOPICAL PATCH TD SCH (10:55)
[2024-02-10] MEDS: BUPRENORPHINE/NALOXONE 8 MG/2 MG FILM PACKET SL SCH (10:56)
[2024-02-10] MEDS: LORazepam 2 MG TABLET PO SCH (10:56)
[2024-02-10] MEDS: ENALAPRIL MALEATE 10 MG TABLET PO SCH (10:56)
[2024-02-10] MEDS ORDERED: ONDANSETRON *ODT* 4 MG TABLET ONE (11:02)
[2024-02-10] MEDS: EMTRICITAB/RILPIVIRINE/TENOFOV 1 EACH TABLET PO SCH (11:28)
[2024-02-10] MEDS: EMTRICITAB/RILPIVIRI/TENOF ALA (ODEFSEY) TABLET PO SCH (12:05)
[2024-02-10] MEDS ORDERED: BUPRENORPHINE/NALOXONE 8 MG/2 MG FILM PACKET SL SCH (14:00)
[2024-02-11] MEDS: TRIMETHOBENZAMIDE HCL 200MG/2ML INJ IM ONE (10:38)
[2024-02-11] MEDS: METHOCARBAMOL 500 MG TABLET PO PRN (17:15)
[2024-02-11] MEDS: cloNIDine HCL 0.1 MG TABLET PO PRN (17:33)
[2024-02-11] MEDS: ACETAMINOPHEN 325 MG TABLET (FP) PO PRN (19:23)
[2024-02-12] MEDS: LORazepam 1 MG TABLET PO SCH (05:56)
[2024-02-13] MEDS ORDERED: LORazepam 0.5 MG TABLET PO PRN
[2024-02-13] MEDS: LORazepam 0.5 MG TABLET PO SCH (05:12)
[2024-02-14] MEDS: LORazepam 0.5 MG TABLET PO ONE (05:25)
[2024-02-14 09:28] VITALS: RESP 18; TEMP 98.6
[2024-02-14] MEDS ORDERED: EMTRICITAB/RILPIVIRI/TENOF ALA (ODEFSEY) TABLET PO SCH (09:29)
[2024-02-14 13:23] VITALS: BP 118/74; PULSE 92
== END 2024-02-14 16:01 | disposition home or self-care (01) | DRG 774 ==
LOC: EDBD 19:36 → YASAS 19:36 → Y3N 02-10 11:20
PROVIDERS: ADMIT Allergy & Immunology; ATTEND Surgery
PROC: HZ2ZZZZ Detoxification Services for Substance Abuse Treatment (ICD-10-PCS; principal; 2024-02-10)
DX: F10.230 Alcohol dependence with withdrawal, uncomplicated (principal); F14.20 Cocaine dependence, uncomplicated; F12.20 Cannabis dependence, uncomplicated; F17.210 Nicotine dependence, cigarettes, uncomplicated; I10 Essential (primary) hypertension; Z21 Asymptomatic human immunodeficiency virus [HIV] infection status; J45.909 Unspecified asthma, uncomplicated; R93.9 Diagnostic imaging inconclusive due to excess body fat of patient; M54.59 Other low back pain; G89.29 Other chronic pain; Z86.19 Personal history of other infectious and parasitic diseases; Z56.0 Unemployment, unspecified
CPT/HCPCS: 0241U-QW; 36415; 80053; 80305; 80307; 85027; 86780; 87811; 93005; 93010